=== PATIENT | male | born 1965 | race Caucasian/White ===

== ENCOUNTER 2022-07-28 16:48 | Inpatient (IN) | payer BC, SELFPAY ==
[2022-07-28] VITALS (13 sets, daily range): BP systolic 107–145; BP diastolic 54–73; PULSE 47–60; RESP 13–48; TEMP 36.4–36.7; O2SAT 99–100
--- NOTE | 2022-07-28 18:40 | W.ED.RECABL ---
HPI - Recheck/Abnormal Lab/Rx General: Chief Complaint: Recheck/Abnormal Lab/Rx Stated Complaint: abn labs Time Seen by Provider: 07/28/22 17:51 Source: patient Mode of arrival: ambulatory Limitations: no limitations History of Present Illness: 56-year-old male states that he has been having some fatigue he states he went and went to the clinic today and was called and told he had a hemoglobin of 5 and come to the ER he states he had some chronic GI issues he does have some dark stools at time denies any difficulty use heavy bleeding no vomiting blood he denies any pain anywhere denies any worsening proving factors. Review of Systems Const: Reports: fatigue; Denies: fever(s) or chills Eyes: Denies: eye discomfort ENMT: Denies: throat pain or dental pain Card: Denies: chest pain Resp: Denies: dyspnea GI: Denies: abdominal pain, nausea, vomiting or diarrhea : Denies: dysuria Musc: Denies: neck pain or back pain Skin/Breast: Denies: rash Neuro: Denies: headache(s) PFSH ED PFSH: Medical History Constipation Unexplained weight loss Surgical History History of umbilical hernia repair Family History Other CAD (coronary artery disease) Cancer Diabetes Hypertension Social History Smoking and tobacco status: never smoked Alcohol intake: never Physical Exam Const: COMMON NORMALS: patient oriented x3 HENMT: COMMON NORMALS: normocephalic and atraumatic HEAD & SCALP: normocephalic and atraumatic Eye: COMMON NORMALS: Equal, round and reactive pupils present and EOMs intact bilaterally PUPIL: Yes Equal, round and reactive pupils present Neck/C-Spine: COMMON NORMALS: full ROM and supple Chest: COMMONS NORMALS: normal inspection of the chest and normal palpation of entire chest wall Resp: COMMON NORMALS: normal respiratory effort, No retractions, No use of accessory muscles and clear to auscultation bilaterally AUSCULTATION: clear to auscultation bilaterally Cardio: COMMON NORMALS: regular rate, regular rhythm and No murmurs present (Cardio) RATE: regular rate RHYTHM: regular rhythm GI: COMMON NORMALS: Normal to inspection, nondistended, normoactive bowel sounds present, Soft to palpation, non-tender and no masses PALPATION: Yes Soft to palpation Extremity: COMMON NORMALS: normal to inspection and full ROM Neuro: COMMON NORMALS: patient oriented x3, moves all extremities and no focal motor deficits Psych: COMMON NORMALS: mental status grossly normal, Normal thought process present and cooperative THOUGHT PROCESS: Normal thought process present Skin: COMMON NORMALS: no rashes or lesions noted and no wounds NARRATIVE SKIN EXAM: pale GENERAL SKIN EXAM: no rashes or lesions noted Course Vital Signs: Vital signs: Vital Signs Pulse Rate 47 L 07/28/22 18: Respiratory Rate 13 07/28/22 18: Blood Pressure 118/58 07/28/22 18:23 Pulse Oximetry 100 07/28/22 18:23 Oxygen Delivery Me thod Room Air 07/28/22 16:53 MDM - Recheck/Abnormal Lab/Rx Medical Decision Making Patient presents here with anemia is likely from a GI bleed that is been chronic and slow his hemoglobin here is 5.3 but no signs of major acute bleeding his vitals here are stable blood pressure is 111/60 will transfuse him I spoke to surgery along with hospitalist will admit at this time. Medical Records I reviewed the patient's medical records. Lab Data I reviewed the patient's lab results. 07/28/22 18:15 07/28/22 18:15 Laboratory Results WBC 10.1 10^3/uL (4.0-10.0) H 07/28/22 18:15 RBC 4.01 10^6/uL (4.1-5.3) L 07/28/22 18:15 Hgb 5.3 g/dL (11.7-16.6) L* 07/28/22 18:15 Hct 23.3 % (42.0-52.0) L 07/28/22 18:15 MCV 58.1 fl (80-94) L 07/28/22 18:15 MCH 13.2 pg (28.0-34.0) L 07/28/22 18:15 MCHC 22.7 g/dL (30.0-36.0) L 07/28/22 18:15 RDW 22.4 % (12.1-15.1) H 07/28/22 18:15 Plt Count 428 10^3/cmm (130-400) H 07/28/22 18:15 MPV 9.3 fL (7.4-10.4) 07/28/22 18:15 Neut % (Auto) 77.3 % 07/28/22 18:15 Lymph % (Auto) 15.9 % 07/28/22 18:15 Jenkins % (Auto) 4.9 % 07/28/22 18:15 Eos % (Auto) 0.8 % 07/28/22 18:15 Baso % (Auto) 0.6 % 07/28/22 18:15 Neut # (Auto) 7.83 10^3/uL (1.8-7.7) H 07/28/22 18:15 Lymph # (Auto) 1.6 10^3/uL (0.8-4.8) 07/28/22 18:15 Jenkins # (Auto) 0.5 10^3/uL (0.2-0.9) 07/28/22 18:15 Eos # (Auto) 0.1 10^3/uL (0.0-0.8) 07/28/22 18:15 Baso # (Auto) 0.1 10^3/uL (0.0-0.1) 07/28/22 18:15 Nucleated RBC % (auto) 0.2 % 07/28/22 18:15 Nucleated RBCs # 0.0 /100WBC 07/28/22 18:15 Blood Type A Positive 07/28/22 18:15 Rho(D) Type Positive 07/28/22 18:15 Antibody Screen Negative 07/28/22 18:15 Crossmatch See Detail 07/28/22 18:15 Discharge Plan Discharge Patient Disposition: Admitted As Inpatient Clinical Impression: Anemia, GI bleed Condition: Stable Prescriptions: No Action No Known Home Medications Referrals: Brett Munoz [employer] [Primary Care Provider] - Coding Level of Care Code ED [employer] for [employer]
[2022-07-28 18:43] LABS: Basophils # 0.1 10^3/uL (0.0-0.1); Basophils % 0.6 %; Eosinophils # 0.1 10^3/uL (0.0-0.8); Eosinophils % 0.8 %; Hematocrit 23.3 % (42.0-52.0); Lymphocytes # 1.6 10^3/uL (0.8-4.8); Lymphocytes % 15.9 %; Mean Corpuscular HGB Conc 22.7 g/dL (30.0-36.0); Mean Corpuscular Hemoglobin 13.2 pg (28.0-34.0); Mean Corpuscular Volume 58.1 fl (80-94); Mean Platelet Volume 9.3 fL (7.4-10.4); Monocytes # 0.5 10^3/uL (0.2-0.9); Monocytes % 4.9 %; Neutrophils # 7.83 10^3/uL (1.8-7.7); Neutrophils % 77.3 %; Nucleated Red Blood Cells % 0.2 %; Platelet Count 428 10^3/cmm (130-400); Red Blood Count 4.01 10^6/uL (4.1-5.3); Red Cell Distribution Width 22.4 % (12.1-15.1); White Blood Count 10.1 10^3/uL (4.0-10.0)
[2022-07-28 18:58] LABS: Hemoglobin 5.3 g/dL (11.7-16.6)
[2022-07-28] MEDS: sodium chloride 0.9% 100 mL Bag 50 ML IV (19:53)
--- NOTE | 2022-07-28 19:55 | PM.HP ---
Providers/Chief Complaint Primary Care Provider: Brett Munoz Chief Complaint: abn labs History of Present Illness Jt Humphreys is a 56 year old male with no significant past medical history except most recently constipation and possible IBS in the past presented to the hospital after being called by his primary care's office that his hemoglobin was low. He recently saw his primary care and was referred to general surgery for screening colonoscopy due to his symptoms. Patient states that 10 days ago he got really sick and passed a mass . He states he did not pass gas or have a bowel movement. Denied nausea vomiting. Experience severe belly pain and felt bloated. He states he is never experienced constipation before. He states during that time he did take a stool softener or laxative off the counter however that did not help and 4 days later he was able to pass a large mass which is possibly impacted stool. He states he immediately felt better and has felt good since then. He did see his primary care doctor and they ordered routine blood work which returned today with a hemoglobin of 5 and therefore he was directed to go to the ER. He states he has had irregular stools for quite some time. He does not provide more details about the irregularity. He states that maybe they are dark maybe not. He states that they appear ribbonlike since he has a history of hemorrhoids but has never seek medical attention for them. He has been losing weight for the last 2 years which he attributes to not having much appetite. He states in 2019 he had COVID and therefore had a ageusia and therefore loss of appetite thereafter. He feels he may have lost upwards of 60 pounds in the last 2 years mainly because he is not eating much. He states he did not have anything all day today as well. He is on any medications at home. He does not really follow-up with a doctor and does not have yearly physicals. Significant other at bedside states that patient has had some trouble swallowing as well. Patient not very forthcoming regarding history of dysphagia however when asked several questions he admits that he has trouble swallowing tablets and sometimes will choke on food. He does not necessarily drink water or liquids to wash it down however significant other states that he has had several choking episodes. Patient nor denies nor confirms that food gets stuck in his chest. He states that he feels it is psychological. He is asymptomatic and feeling well at this time. Has no complaints. Agrees to having an endoscopy and colonoscopy if warranted after seeing the surgeon in the morning. Patient has been ordered 2 units of packed RBCs. Hemoglobin 5.3 in ER. He is to have 4 L of GoLytely and 4 tablets of Dulcolax as per Dr. Dutton we discussed his case with the ER doctor over the phone. Medications/Allergies Home Medications Medication Instructions Recorded Confirmed Last Taken Type No Known Home Medications 07/28/22 07/28/22 Unknown History Allergies Allergy/AdvReac Type Severity Reaction Status Date / Time No Known Allergies Allergy Verified 07/28/22 12:50 PFSH Acute PFSH: Medical History Constipation Unexplained weight loss Surgical History History of umbilical hernia repair Family History Other CAD (coronary artery disease) Cancer Diabetes Hypertension Social History Smoking and tobacco status: never smoked Alcohol intake: never Vitals/I&O/Wt Last Vital Signs Temp 97.6 F 07/28/22 19:46 Pulse 52 L 07/28/22 19:46 Resp 14 07/28/22 19:46 BP 111/60 07/28/22 19:46 Pulse Ox 100 07/28/22 19:46 O2 Del Method Room Air 07/28/22 19:44 07/28/22 07/28/22 07/28/22 06:59 14:59 22:59 Intake Total 0 / 0 Balance 0 / 0 Weight last 48 hrs Weight 65.317 kg Physical Exam Narrative: General: Alert oriented x3, patient seen sitting up in bed appearing comfortable at this time. HEENT: Normocephalic, atraumatic, EOMI, on room air Cardio: Regular rate rhythm, normal S1-S2 Respiratory: Good bilateral air entry, no wheezes no rhonchi appreciated GI: Abdomen soft, nontender, nondistended, bowel sounds + Behavior: Appropriate and cooperative Extremities: Pulses 2+, no edema, no cyanosis Data 07/28/22 18:15 07/28/22 18:15 A&P Assessment and plan (1) Anemia: (2) GI bleed: (3) Screening for colon cancer: (4) Constipation: Qualifiers: Constipation type: unspecified constipation type Qualified Code(s): K59.00 - Constipation, unspecified (5) Unexplained weight loss: (6) Dysphagia: (7) Hemorrhoids: Plan #Acute blood loss anemia #Possible iron deficiency anemia #Positive FOBT #History of IBS #? #Recent constipation, severe #History of hemorrhoids? Self-reported by patient however not formally diagnosed #Weight loss, loss of appetite #Possible dysphagia to solids ? Patient denies a family history of cancers in the family except that his brother had lung cancer possibly. He has been having weight loss that he attributes to loss of appetite in the last 2 years. Never had a screening colonoscopy before. Does not really follow-up with a doctor. Possibly has some dysphagia to solids. ? Hemoglobin 5.3 on arrival. 2 units packed RBCs ordered. We will check a posttransfusion CBC 2 hours post last unit of blood. Threshold to transfuse less than 7 ? Check CBC every 8 hours ? Continue bowel prep with 4 L GoLytely and 4 tablets of Dulcolax as directed by Dr. Dutton ? Patient to go for colonoscopy and possibly EGD in a.m. ? General surgery consulted. ? Check iron, TIBC, ferritin for suspicion of iron deficiency ? Order IV iron if warranted ? Check CT chest abdomen pelvis for possibility of ruling out underlying malignancy? ? Placed on IV fluids normal saline 75 cc/h. ? Patient is vitally stable. Continue to monitor vitals. ? Admit to medical surgical floor ? Check TSH Full code SCDs, pharmacological prophylaxis not warranted for DVT at this time Attestations Medical Necessity Statement*: Greater than 2 midnight stay for management of acute blood loss anemia. Coding Level of Care Code G0426 (50 min) TH Encounter Time (min): 60 Patient seen via Telehealth in the acute care setting (hospital or ED location) by agreement and consent of patient or patient quality assurance representative. Telehealth technology used during the visit includes video and audio. This patient encounter is appropriate and reasonable under the circumstances given the patient?s particular presentation at this time. The patient has been advised of the potential risks and limitations of this mode of treatment (including but not limited to the absence of in-person examination at this time) and has agreed to be treated by an off-site physician for this visit. If deemed clinically necessary from this telehealth visit, or if condition or consent for telehealth visit changes, an in-person visit will be arranged. For this encounter, total time for the origination of telehealth care on this date is as shown. Diagnoses Anemia D64.9 GI bleed K92.2 Screening for colon cancer Z12.11 Constipation K59.00 Constipation type: unspecified constipation type Unexplained weight loss R63.4 Dysphagia R13.10 Hemorrhoids K64.9
[2022-07-28 20:04] LABS: Alanine Aminotransferase < 5 U/L (0-41); Albumin Level 3.6 g/dL (3.5-5.2); Alkaline Phosphatase 60 U/L (40-130); Anion Gap 14.2 (5-19); Aspartate Amino Transferase 6 U/L (0-40); Blood Urea Nitrogen 13 mg/dL (6-20); Calcium 8.4 mg/dL (8.5-10.5); Carbon Dioxide 23 mmol/L (22-29); Chloride 102 mmol/L (98-107); Globulin 2.3 g/dL (1.3-4.6); Glomerular Filtration Rate 87.6 mL/min (90-130); Glucose 94 mg/dL (65-115); Osmolality Calculated 280 mOsm/kg (285-295); Potassium 4.2 mmol/L (3.5-5.1); Sodium 135 mmol/L (136-145); Total Bilirubin 0.6 mg/dL (0.15-1.2); Total Protein 5.9 g/dL (6.6-8.7)
[2022-07-28 20:46] LABS: INR 1.08 (0.8-1.2)
[2022-07-28 20:47] LABS: Iron 9 ug/dL (59-158); Percent Saturation 3.1 % (20-50); Total Iron Binding Capacity 284 mcg/dl; Unsaturated Iron Binding 275 ug/dL (112-347)
[2022-07-28 20:59] LABS: Ferritin 8 ng/mL (30-400)
[2022-07-28] MEDS: bisacodyl 5 mg Tablet 20 MG PO (23:20)
[2022-07-28] MEDS: peg /e-lyte soln 4,000 mL Btl 4000 ML PO (23:20)
[2022-07-28] MEDS: sodium chloride 0.9% 1,000 ML 75 ML IV (23:22)
[2022-07-29] VITALS (15 sets, daily range): BP systolic 100–131; BP diastolic 47–75; PULSE 42–61; RESP 12–49; TEMP 36.1–37.1; O2SAT 96–100
--- NOTE | 2022-07-29 01:47 | CT_ITS ---
WS: [id number] CT CHEST, ABDOMEN, AND PELVIS TECHNIQUE: Contrast-enhanced CT of the chest, abdomen, and pelvis with coronal and sagittal reformatt ed images. CLINICAL INFORMATION: Rule out underlying malignancy. COMPARISON: None. DLP: 730.[address] scans at [facility] use at least one of these dose optimization techniques: automated e xposure control; mA and/or kV adjustment per patient size (includes targeted exams where dose is matc hed to clinical indication); or iterative reconstruction. CT CHEST: Lungs are well aerated. No acute pulmonary infiltrates. A few calcified granulomas. No focal pneumoni a or pleural fluid. No acute pulmonary infiltrates. Normal caliber thoracic aorta. Normal ascending and descending thoracic aorta. No mediastinal or zhane r lymphadenopathy. No axillary lymphadenopathy. Mild thoracic curve. Mild thoracic kyphosis. CT ABDOMEN AND PELVIS: Mucosal enhancement involving the sigmoid colon. Suspected acute diverticuliti s with surrounding inflammatory stranding. Tiny punctate focus of air in this area suspicious for sma ll perforated diverticulum. . No drainable abscess or fluid collection. Area of eccentric enhancement soft tissue spiculation measures 2.1 x 1.7 CM suspicious for neoplasm. Fluid in the RIGHT colon and transverse colon with a few air-fluid levels. No high-grade obstruction. Mild diffuse fatty infiltration liver. Low-attenuation lesions in the RIGHT hepatic lobe with some pe ripheral enhancement nonspecific but likely cavernous hemangiomas. Largest lesion measures 1.7 CM. No rmal portal vein and splenic vein. Splenic granulomas. Normal GE junction. Normal caliber abdominal a jony. Adrenal glands are normal. Normal renal parenchymal enhancement. No hydronephrosis. No adenopathy in the abdomen or pelvis. Normal lumbar spine. CT/CT chest abdpel w/*[id number] IMPRESSION: 1. Mild inflammatory stranding and edema about the sigmoid colon with mucosal enhancement suspicious for acute diverticulitis. Tiny punctate focus of air lik paramjit small perforated diverticulum. 2. Adjacent to the area of inflammation there is a tethered region of exophyti c enhancing soft tissue measuring 2.1 x 1.7 cm suspicious for neoplasm. This ca n be further evaluated with sigmoidoscopy. 3. No drainable abscess or fluid collection. 4. Low-attenuation lesions in the RIGHT hepatic lobe with some punctate periph eral enhancement. These are nonspecific but most likely cavernous hemangiomas. This could be further evaluated with ultrasound or contrast-enhanced triphasic liver CT 5. Mild diffuse fatty infiltration liver. 6. Lungs are well aerated. Notified Dr. Gomez at 07/29/2022 11:16 AM.
[2022-07-29 04:38] LABS: Basophils # 0.1 10^3/uL (0.0-0.1); Basophils % 0.7 %; Eosinophils % 0.2 %; Hemoglobin 8.7 g/dL (11.7-16.6); Lymphocytes # 1.5 10^3/uL (0.8-4.8); Lymphocytes % 15.2 %; Mean Corpuscular HGB Conc 26.4 g/dL (30.0-36.0); Mean Corpuscular Hemoglobin 16.9 pg (28.0-34.0); Mean Corpuscular Volume 64.2 fl (80-94); Mean Platelet Volume 9.2 fL (7.4-10.4); Monocytes # 0.4 10^3/uL (0.2-0.9); Monocytes % 4.6 %; Neutrophils # 7.51 10^3/uL (1.8-7.7); Neutrophils % 78.8 %; Nucleated Red Blood Cells # 0.1 /100WBC; Nucleated Red Blood Cells % 0.5 %; Platelet Count 415 10^3/cmm (130-400); Red Blood Count 5.14 10^6/uL (4.1-5.3); Red Cell Distribution Width 29.2 % (12.1-15.1); White Blood Count 9.5 10^3/uL (4.0-10.0)
[2022-07-29 04:54] LABS: Anion Gap 14.3 (5-19); Blood Urea Nitrogen 12 mg/dL (6-20); Calcium 8.9 mg/dL (8.5-10.5); Carbon Dioxide 25 mmol/L (22-29); Chloride 102 mmol/L (98-107); Glomerular Filtration Rate 100.4 mL/min (90-130); Glucose 88 mg/dL (65-115); Magnesium 2.4 mg/dL (1.7-2.3); Osmolality Calculated 283 mOsm/kg (285-295); Potassium 4.3 mmol/L (3.5-5.1); Sodium 137 mmol/L (136-145)
[2022-07-29 04:55] LABS: Lactic Sepsis W/Reflex 1.5 mmol/L (0.5-2.2)
[2022-07-29 05:17] LABS: Thyroid Stimulating Hormone 3.42 uIU/mL (0.27-4.20)
--- NOTE | 2022-07-29 08:04 | PC.PHAR ---
pt states he takes no rx or otc medications
[2022-07-29] MEDS: pantoprazole 40 mg SDV IVP ×2 (08:24→20:22)
[2022-07-29] MEDS: iron sucrose 500 MG in sodium chloride 0.9% 250 ML 68.75 MG IV (09:42)
[2022-07-29] MEDS: iohexol 350 mg/mL 500 mL Btl (per mL) IV (09:58)
--- NOTE | 2022-07-29 10:22 | PM.PN ---
Subjective Subjective: This morning patient is stable Finished three quarters of his GoLytely Hemodynamically stable Hemoglobin around 8 We did talk about thalassemia trait however at this point he needs IV iron bag because of severe iron deficiency anemia Going for EGD and colonoscopy around noon Vitals/I&O/Wt Last Vital Signs Temp 98 F 07/29/22 07:58 Pulse 54 L 07/29/22 07:58 Resp 15 07/29/22 07:58 BP 123/73 07/29/22 07:58 Pulse Ox 98 07/29/22 07:58 O2 Del Method Room Air 07/29/22 07:58 07/28/22 07/29/22 07/29/22 22:59 06:59 14:59 Intake Total 470 / 470 700 / 1170 317.5 / 317.5 Balance 470 / 470 700 / 1170 317.5 / 317.5 Weight last 48 hrs Weight 65.317 kg Physical Exam Narrative: Patient is awake and alert Euvolemic Abdomen soft Normal complexion S1, S2 Normal hemodynamics at the bedside GCS 15 No aortic murmur S1, S2 Doing well on room air Data 07/29/22 04:21 07/29/22 04:21 Micro: Microbiology 07/28/22 19:09 Occult Blood (FIT) - Final Stool Routine Collection A&P Assessment and plan (1) Hemorrhoids: (2) Dysphagia: (3) Anemia: (4) GI bleed: (5) Constipation: Qualifiers: Constipation type: unspecified constipation type Qualified Code(s): K59.00 - Constipation, unspecified (6) Unexplained weight loss: Plan Acute microcytic hypochromic blood loss anemia GI blood loss Positive FOBT Never had screening colonoscopy Plan for EGD and colonoscopy today Severe iron deficiency anemia MCV below 75, thalassemia trait? We will give him 1 bag of iron sucrose today Dysphagia He might go for EGD as well Patient is stating that sporadically he gets dysphagia to solids and liquids however he never regurgitates foods never gets vomiting symptoms He is endorsing weight loss If EGD is unremarkable he will need modified barium swallow study Full code N.p.o. Start diet after the scope DVT prophylaxis on hold because of anemia Attestations Medical Necessity Statement*: Anticipating discharge tomorrow morning Diagnoses Hemorrhoids K64.9 Dysphagia R13.10 Anemia D64.9 GI bleed K92.2 Constipation K59.00 Constipation type: unspecified constipation type Unexplained weight loss R63.4
[2022-07-29 11:22] LABS: Folate Level 2.6 ng/mL (4.5-32.2)
[2022-07-29 11:23] LABS: Vitamin B12 329 pg/mL (232-1245)
--- NOTE | 2022-07-29 12:13 | P.CONIM_ITS ---
Providers/Reason For Consult Consulting Physician/Specialty*: Dr. Casey Dutton DO/General surgery Reason for Consult*: GI bleeding Attending Physician: Pedro Gomez MD Primary Care Provider: Brett Munoz History of Present Illness History of Present Illness Jt Humphreys is a 56 year old male who presented to the hospital with a hemoglobin of 5.3. He denies any abdominal pain but does report that he had some bright red blood per rectum recently. He believes he has hemorrhoids. He denies any nausea or vomiting. He reports that about 10 days ago he was con stipated but eventually passed a hard stool ball and has been fine since. He has never had a colonoscopy. Denies any family history of colon cancer. Review of Systems General: Reports: 10 or more systems reviewed and unremarkable except in HPI and below Medications/Allergies Home Medications Medication Instructions Recorded Confirmed Last Taken Type No Known Home Medications 07/28/22 07/29/22 Unknown History Allergies Allergy/AdvReac Type Severity Reaction Status Date / Time No Known Allergies Allergy Verified 07/29/22 08:04 Current Medications Generic Name Dose Route Start Last Admin Trade Name Freq PRN Reason Stop Dose Admin Iron Sucrose 500 mg/ Sodium 275 mls @ 68.75 mls/hr 07/29/22 08:18 07/29/22 09:42 Chloride IV 07/29/22 12:17 68.75 mls/hr ONCE ONE Administration PFSH Acute PFSH: Medical History Constipation Unexplained weight loss Surgical History History of umbilical hernia repair Family History Other CAD (coronary artery disease) Cancer Diabetes Hypertension Social History Smoking and tobacco status: never smoked Alcohol intake: never Vitals/I&O/Wt Last Vital Signs Temp 98.1 F 07/29/22 11:30 Pulse 42 L 07/29/22 11:30 Resp 18 07/29/22 11:30 BP 124/64 07/29/22 11:30 Pulse Ox 100 07/29/22 11:30 O2 Del Method Room Air 07/29/22 07:58 07/28/22 07/29/22 07/29/22 22:59 06:59 14:59 Intake Total 470 / 470 700 / 1170 317.5 / 317.5 Balance 470 / 470 700 / 1170 317.5 / 317.5 Weight last 48 hrs Weight 144 lb Physical Exam Narrative: General : Patient is well developed , no acute distress, oriented x3 Head : Normal cephalic, a-traumatic. Ears : Pinnae and external canal are normal. Hearing is normal. Eyes : PERRLA, Sclera and injection are normal. No conjunctival discharge. Nose : Mucous membranes are without erythema. Throat : buccal mucosa is normal, gums are without significant recession or hypertrophy. Lungs : Equal chest rise bilaterally, no use of accessory muscles, trachea is midline. Cor : Rate and rhythm are normal. Abdomen : Soft, ND, NT, no g/r/m Extremities : No edema, no cyanosis or clubbing, dorsalis pedis pulses are present bilaterally, non-tender to palpation of calves. Upper extremities are normal bilaterally. Back : non-tender to palpation, no CVA tenderness. Neuro : CN II - XII intact, Upper and lower extremities have equal and full strength Data 07/29/22 04:21 07/29/22 04:21 Micro: Microbiology 07/28/22 19:09 Occult Blood (FIT) - Final Stool Routine Collection A&P Assessment and plan (1) GI bleed: Plan EGD Diagnostic colonoscopy The risks and benefits of the procedure, including bleeding, infection, intestinal perforation requiring surgery, missed lesion were explained to the patient. The patient is understanding of the risks and wishes to proceed. Coding Level of Care Code Acute Code for Chg Fwd Diagnoses GI bleed K92.2
--- NOTE | 2022-07-29 12:28 | ANES.PREANE2 ---
Pre-Anesthetic Assessment Height/Weight: Height 1.68 m Weight 65.317 kg Temp Pulse Resp BP Pulse Ox O2 Del Method 98.1 F 42 L 18 124/64 100 Room Air 07/29/22 11:30 07/29/22 11:30 07/29/22 11:30 07/29/22 11:30 07/29/22 11:30 07/29/22 07:58 Preop Diagnosis: Anemia Operation Date: 07/29/22 11:45 Proposed Procedures p EGD(Not Applicable) - Casey Dutton DO s Colonoscopy(Not Applicable) - Casey Dutton DO Was Beta Soy taken within 24 hours: N/A Was Clonidine taken within 24 hours: N/A Last intake: Intake Last Liquid Date 07/29/22 Last Liquid Time 1145 Last Solid Date 07/28/22 Last Solid Time 12:00 Social No alcohol and No tobacco Exam alert, oriented x 3, clear to auscultation bilaterally and regular rate & rhythm Airway Submandibular: within normal limits Cervical ROM: within normal limits Mallampati: Class II Dentition: full Pulmonary None reported CV/HEM None reported None reported Hepatic None reported GI Rectal Bleeding Metabolic None reported Musc/skel None reported Neuropsych None reported Anesthetic Plan ASA status: 2 Anesthesia: MAC Other: MAC patient reports no N/V rectal bleeding only. Patient reports drinking prep until 1145 Per NPO guidelines procedure will start at 1345 (2 HRS) Medications/Allergies Home Medications Medication Instructions Recorded Confirmed Last Taken Type No Known Home Medications 07/28/22 07/29/22 Unknown History Allergies Allergy/AdvReac Type Severity Reaction Status Date / Time No Known Allergies Allergy Verified 07/29/22 08:04 [facility] Anesthesia Medical History Constipation Unexplained weight loss Surgical History History of umbilical hernia repair Family History Other CAD (coronary artery disease) Cancer Diabetes Hypertension Social History Smoking and tobacco status: never smoked Alcohol intake: never Data Anesthesia 07/29/22 04:21 07/29/22 04:21 Short CBC 07/28/22 07/29/22 Range/Units 18:15 04:21 WBC 10.1 H 9.5 (4.0-10.0) 10^3/uL Hgb 5.3 L* 8.7 L D (11.7-16.6) g/dL Hct 23.3 L 33.0 L D (42.0-52.0) % MCV 58.1 L 64.2 L D (80-94) fl Plt Count 428 H 415 H (130-400) 10^3/cmm Neut % (Auto) 77.3 78.8 % Neut # (Auto) 7.83 H 7.51 (1.8-7.7) 10^3/uL BMP 07/28/22 07/29/22 18:15 04:21 Sodium 135 L 137 Potassium 4.2 4.3 Chloride 102 102 Carbon Dioxide 23 25 BUN 13 12 Creatinine 0.9 0.8 Glucose 94 88 Calcium 8.4 L 8.9 Liver Function 07/28/22 Range/Units 18:15 Total Bilirubin 0.6 (0.15-1.2) mg/dL AST 6 (0-40) U/L ALT < 5 (0-41) U/L Alkaline Phosphatase 60 (40-130) U/L Albumin 3.6 (3.5-5.2) g/dL Blood Bank 07/28/22 18:15 Blood Type A Positive Rho(D) Type Positive Antibody Screen Negative Coags 07/28/22 18:15 PT 14.30 INR 1.08 Microbiology 07/28/22 19:09 Occult Blood (FIT) - Final Stool Routine Collection Cardiac Studies: No Data to Display
[2022-07-29] MEDS: sodium chloride 0.9% 1,000 ML 30 ML IV (12:52)
--- NOTE | 2022-07-29 13:52 | PM.PO ---
Providers/Reason For Consult Consulting Physician/Specialty*: Adam Robison MD/General Surgery Reason for Consult*: Chronic anemia Attending Physician: Pedro Gomez MD Primary Care Provider: Brett Munoz History of Present Illness History of Present Illness Jt Humphreys is a 56 year old male Review of Systems General: Reports: 10 or more systems reviewed and unremarkable except in HPI and below Medications/Allergies Home Medications Medication Instructions Recorded Confirmed Last Taken Type No Known Home Medications 07/28/22 07/29/22 Unknown History Allergies Allergy/AdvReac Type Severity Reaction Status Date / Time No Known Allergies Allergy Verified 07/29/22 08:04 Current Medications Generic Name Dose Route Start Last Admin Trade Name Freq PRN Reason Stop Dose Admin Sodium Chloride 1,000 mls @ 30 mls/hr 07/29/22 11:30 07/29/22 12:52 Sodium Chloride 0.9% IV 07/30/22 11:29 30 mls/hr .Q24H LETICIA Administration PFSH Acute PFSH: Medical History Constipation Unexplained weight loss Surgical History History of umbilical hernia repair Family History Other CAD (coronary artery disease) Cancer Diabetes Hypertension Social History Smoking and tobacco status: never smoked Alcohol intake: never Vitals/I&O/Wt Last Vital Signs Temp 98.1 F 07/29/22 11:30 Pulse 42 L 07/29/22 11:30 Resp 18 07/29/22 11:30 BP 124/64 07/29/22 11:30 Pulse Ox 100 07/29/22 11:30 O2 Del Method Room Air 07/29/22 07:58 07/28/22 07/29/22 07/29/22 22:59 06:59 14:59 Intake Total 470 / 470 700 / 1170 317.5 / 317.5 Balance 470 / 470 700 / 1170 317.5 / 317.5 Weight last 48 hrs Weight 144 lb Physical Exam Narrative: WDWN male with no acute changes from previous examinations. Data 07/29/22 04:21 07/29/22 04:21 Micro: Microbiology 07/28/22 19:09 Occult Blood (FIT) - Final Stool Routine Collection Perioperative Risk Evaluation Type of surgery: Surgical procedures: Esophagogastroduodenoscopy and colonoscopy Procedure risk: low risk procedure Status of surgery: Priority: urgent (neccessary within 6-24 hours) Assessment: Risk of cardiovascular perioperative events: Low At this time, there is a low risk for cardiovascular perioperative events associated with this urgent low risk procedure (Esophagogastroduodenoscopy and colonoscopy). Risk of noncardiovascular perioperative events: Low At this time, there is a low risk for noncardiovascular perioperative events associated with this urgent low risk procedure (Esophagogastroduodenoscopy and colonoscopy). Recommendations: Patient medically optimized for surgery: Yes Maria L-op med management: Currently, there are no high priority active medications. Therefore, no specific actions are indicated. Cardiac Studies: No Data to Display A&P Assessment and plan (1) GI bleed: Plan: esophagogastroduodenoscopy and colonoscopy on 07/29/2022 Coding Level of Care Code Acute Code for Chg Fwd Diagnoses GI bleed K92.2
--- NOTE | 2022-07-29 14:42 | ANE.PACU2 ---
Inpatient post-anesthesia follow up: Airway intact: Yes Vital signs: Temperature 97 F Pulse Rate 51 Respiratory Rate 12 Blood Pressure 100/57 Pulse Oximetry 99 Oxygen Delivery Me thod Room Air Oxygen Flow Rate Fraction of Inspir ed Oxygen Hydration adequate: Yes Nausea and vomiting: No Pain level: 2 Mental status: Baseline
--- NOTE | 2022-07-29 14:54 | XR_ITS ---
WS: [id number] Abdomen series, Flat and upright portable, 07/29/2022 Clinical Data: Post colonoscopy Comparison: None. Findings: No free air is seen beneath the diaphragms. No abnormal intra-abdominal masses or calcifica tions are seen. There is a large amount of air in the small bowel and colon. No obstruction is seen. The bladder is partly full. There are monitor leads on the abdominal wall. XR/XR abdomen min 2V [id number] Impression: Generalized ileus.
[2022-07-29] MEDS: metroNIDAZOLE 500 MG Tablet PO ×2 (17:13→20:22)
[2022-07-29 20:03] LABS: Carcinoembryonic Antigen 2.3 ng/mL (0.0-4.7)
[2022-07-29] MEDS: ciprofloxacin 500 mg Tablet PO (20:22)
[2022-07-30] VITALS (9 sets, daily range): BP systolic 105–128; BP diastolic 41–72; PULSE 42–54; RESP 15–18; TEMP 36.1–36.6; O2SAT 97–100
[2022-07-30 06:08] LABS: Anion Gap 13.1 (5-19); Blood Urea Nitrogen 8 mg/dL (6-20); Calcium 8.1 mg/dL (8.5-10.5); Carbon Dioxide 25 mmol/L (22-29); Chloride 108 mmol/L (98-107); Glomerular Filtration Rate 77.6 mL/min (90-130); Glucose 82 mg/dL (65-115); Magnesium 2.4 mg/dL (1.7-2.3); Osmolality Calculated 291 mOsm/kg (285-295); Potassium 4.1 mmol/L (3.5-5.1); Sodium 142 mmol/L (136-145)
[2022-07-30 06:38] LABS: Basophils # 0.1 10^3/uL (0.0-0.1); Eosinophils # 0.1 10^3/uL (0.0-0.8); Eosinophils % 1.5 %; Hematocrit 26.8 % (42.0-52.0); Lymphocytes # 1.4 10^3/uL (0.8-4.8); Lymphocytes % 21.1 %; Mean Corpuscular HGB Conc 26.1 g/dL (30.0-36.0); Mean Corpuscular Hemoglobin 16.7 pg (28.0-34.0); Mean Corpuscular Volume 64.1 fl (80-94); Mean Platelet Volume 8.9 fL (7.4-10.4); Monocytes # 0.5 10^3/uL (0.2-0.9); Neutrophils # 4.57 10^3/uL (1.8-7.7); Nucleated Red Blood Cells # 0.1 /100WBC; Nucleated Red Blood Cells % 0.7 %; Platelet Count 301 10^3/cmm (130-400); Red Blood Count 4.18 10^6/uL (4.1-5.3); Red Cell Distribution Width 29.7 % (12.1-15.1); White Blood Count 6.7 10^3/uL (4.0-10.0)
[2022-07-30] MEDS: ciprofloxacin 500 mg Tablet PO (08:09)
[2022-07-30] MEDS: metroNIDAZOLE 500 MG Tablet PO ×2 (08:09→14:06)
--- NOTE | 2022-07-30 08:58 | PC.NURSE ---
Patient hemoglobin level is 7.0. This nurse messaged MD. No new orders received at this time.
[2022-07-30] MEDS: pantoprazole 40 mg SDV IVP (09:02)
--- NOTE | 2022-07-30 09:30 | PC.NURSE ---
Patient requested that his telemetry be taken off. 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 Patient still requested to take it off.
--- NOTE | 2022-07-30 12:36 | P.DS_ITS ---
Discharge Providers Date of Admission: 07/28/22 19:29 Date of Discharge: July 30, 2022 Attending Provider at Admission: Ronit Holm MD Attending Provider at Discharge: Harpreet Alvares MD Primary Care Provider: Brett Munoz Diagnoses at Discharge Discharge Diagnosis (1) GI bleed: Status: Acute Reason for Visit Reason for Visit: abn labs Hospital Course Hospital Course Jt Humphreys is a 56 year old male with no significant past medical history except most recently constipation and possible IBS in the past presented to the hospital after being called by his primary care's office that his hemoglobin was low.? He recently saw his primary care and was referred to general surgery for screening colonoscopy due to his symptoms.? Patient states that 10 days ago he got really sick and passed a mass .? He states he did not pass gas or have a bowel movement.? Denied nausea vomiting.? Experience severe belly pain and felt bloated.? He states he is never experienced constipation before.? He states during that time he did take a stool softener or laxative off the counter however that did not help and 4 days later he was able to pass a large mass which is possibly impacted stool.? He states he immediately felt better and has felt good since then.? He did see his primary care doctor and they ordered routine blood work which returned today with a hemoglobin of 5 and therefore he was directed to go to the ER.? He states he has had irregular stools for quite some time.? He does not provide more details about the irregularity.? He states that maybe they are dark maybe not.? He states that they appear ribbonlike since he has a history of hemorrhoids but has never seek medical attention for them.? He has been losing weight for the last 2 years which he attributes to not having much appetite.? He states in 2019 he had COVID and therefore had a ageusia and therefore loss of appetite thereafter.? He feels he may have lost upwards of 60 pounds in the last 2 years mainly because he is not eating much.? He states he did not have anything all day today as well.? He is on any medications at home.? He does not really follow-up with a doctor and does not have yearly physicals.? Significant other at bedside states that patient has had some trouble swallowing as well.? Patient not very forthcoming regarding history of dysphagia however when asked several questions he admits that he has trouble swallowing tablets and sometimes will choke on food.? He does not necessarily drink water or liquids to wash it down however significant other states that he has had several choking episodes.? Patient nor denies nor confirms that food gets stuck in his chest.? He states that he feels it is psychological. He is asymptomatic and feeling well at this time.? Has no complaints.? Agrees to having an endoscopy and colonoscopy if warranted after seeing the surgeon in the morning.? Patient has been ordered 2 units of packed RBCs.? Hemoglobin 5.3 in ER.? He is to have 4 L of GoLytely and 4 tablets of Dulcolax as per Dr. Dutton we discussed his case with the ER doctor over the phone. Patient was admitted to [facility] for acute microcytic hypochromic anemia, with severe iron deficiency anemia, secondary to rectal mass. Patient had sigmoidoscopy that showed severe, malignant appearing intrinsic 1 cm diameter stenosis, which was not transverse, small amount of blood was observed, partially obstructing large size malignant appearing circumferential mass was seen, mass was actively bleeding. Patient required 3 units PRBC during his hospitalization, received 2 treatments of IV Venofer, clinically monitored, on a clear liquid diet. On discharge I wanted to have him follow-up with Dr. Abad on Monday for referral to colorectal surgery. Recheck hemoglobin on Monday either through Dr. Abad through primary care. I am also can have him follow- up with Dr. Abad to consider further IV Venofer infusions and or blood transfusions depending what his hemoglobin trends to. He has not had any recurrent bloody or black stools in the hospital, but he for to have any worsening bloody or black stools go to the emergency room. Patient was advised to stick with a low fiber, low residue, clear liquid diet given that the mass was partially obstructing. Patient was advised if he were to have sudden onset of abdominal pain, lack of stooling, this is a surgical emergency to go to the emergency room. On admission, patient did show mild inflammatory stranding edema about the sigmoid colon, suspicious for acute diverticulitis, tiny punctuate focus of air likely small perforated diverticulum, patient was advised of diet as above, discharged on 7 remaining days of antibiotics, follow-up with primary care provider in 1 week. Physical Exam Const: COMMON NORMALS: no acute distress and patient oriented x3 Resp: COMMON NORMALS: normal respiratory effort, No retractions, No use of accessory muscles and clear to auscultation bilaterally AUSCULTATION: clear to auscultation bilaterally Cardio: COMMON NORMALS: regular rate, regular rhythm, S1 normal heart sound present and S2 normal heart sound present RATE: regular rate RHYTHM: regu lar rhythm HEART SOUNDS: S1 normal heart sound present and S2 normal heart sound present GI: COMMON NORMALS: Normal to inspection, nondistended, normoactive bowel sounds present and non-tender Extremity: COMMON NORMALS: no pedal edema Neuro: COMMON NORMALS: patient oriented x3 Psych: COMMON NORMALS: mental status grossly normal Discharge Data Studies Completed and Pending Completed Studies During Hospitalization Category Date Time Status CT chest abdomen pelvis [CT chest abdpel w/*[id number] Cat Scan 07/29/22 01:47 Completed ] Routine XR abdomen min 2V [id number] Urgent Exams 07/29/22 14:54 Completed Pending at discharge Category Date Time Status H. Pylori / LUCAS Test Routine Lab 07/29/22 14:16 Ordered Pathology: Surgical [PTH] Routine Pth 07/29/22 14:35 Received Radiology Impressions Chest/Abdomen/Pelvis CT 07/29/22 01:47 IMPRESSION: 1. Mild inflammatory stranding and edema about the sigmoid colon with mucosal e nhancement suspicious for acute diverticulitis. Tiny punctate focus of air likely small perforated diverticulum. 2. Adjacent to the area of inflammation there is a tethered region of exophytic enhancing soft tissue measuring 2.1 x 1.7 cm suspicious for neoplasm. This can be further evaluated with sigmoidoscopy. 3. No drainable abscess or fluid collection. 4. Low-attenuation lesions in the RIGHT hepatic lobe with some punctate peripheral enhancement. These are nonspecific but most likely cavernous hemangiomas. This could be further evaluated with ultrasound or contrast- enhanced triphasic liver CT 5. Mild diffuse fatty infiltration liver. 6. Lungs are well aerated. Notified Dr. Gomez at 07/29/2022 11:16 AM. Abdomen X-Ray 07/29/22 14:54 Impression: Generalized ileus. Laboratory Results WBC 6.7 10^3/uL (4.0-10.0) 07/30/22 05:25 WBC Cancelled 07/30/22 05:25 Corrected WBC Cancelled 07/30/22 05:25 RBC 4.18 10^6/uL (4.1-5.3) 07/30/22 05:25 RBC Cancelled 07/30/22 05:25 Hgb 7.0 g/dL (11.7-16.6) L 07/30/22 05:25 Hgb Cancelled 07/30/22 05:25 Hct 26.8 % (42.0-52.0) L 07/30/22 05:25 Hct Cancelled 07/30/22 05:25 MCV 64.1 fl (80-94) L 07/30/22 05:25 MCV Cancelled 07/30/22 05:25 MCH 16.7 pg (28.0-34.0) L 07/30/22 05:25 MCH Cancelled 07/30/22 05:25 MCHC 26.1 g/dL (30.0-36.0) L 07/30/22 05:25 MCHC Cancelled 07/30/22 05:25 RDW 29.7 % (12.1-15.1) H 07/30/22 05:25 RDW Cancelled 07/30/22 05:25 Plt Count 301 10^3/cmm (130-400) 07/30/22 05:25 Plt Count Cancelled 07/30/22 05:25 MPV 8.9 fL (7.4-10.4) 07/30/22 05:25 MPV Cancelled 07/30/22 05:25 Gran % Cancelled 07/30/22 05:25 Neut % (Auto) 68.0 % 07/30/22 05:25 Neut % (Auto) Cancelled 07/30/22 05:25 Lymph % (Auto) 21.1 % 07/30/22 05:25 Lymph % (Auto) Cancelled 07/30/22 05:25 Marin % (Auto) 8.0 % 07/30/22 05:25 Marin % (Auto) Cancelled 07/30/22 05:25 Eos % (Auto) 1.5 % 07/30/22 05:25 Eos % (Auto) Cancelled 07/30/22 05:25 Baso % (Auto) 1.0 % 07/30/22 05:25 Baso % (Auto) Cancelled 07/30/22 05:25 Neut # (Auto) 4.57 10^3/uL (1.8-7.7) 07/30/22 05:25 Neut # (Auto) Cancelled 07/30/22 05:25 Lymph # (Auto) 1.4 10^3/uL (0.8-4.8) 07/30/22 05:25 Lymph # (Auto) Cancelled 07/30/22 05:25 Marin # (Auto) 0.5 10^3/uL (0.2-0.9) 07/30/22 05:25 Marin # (Auto) Cancelled 07/30/22 05:25 Eos # (Auto) 0.1 10^3/uL (0.0-0.8) 07/30/22 05:25 Eos # (Auto) Cancelled 07/30/22 05:25 Baso # (Auto) 0.1 10^3/uL (0.0-0.1) 07/30/22 05:25 Baso # (Auto) Cancelled 07/30/22 05:25 Absolute Gran (auto) Cancelled 07/30/22 05:25 Nucleated RBC % (auto) 0.7 % 07/30/22 05:25 Nucleated RBC % (auto) Cancelled 07/30/22 05:25 Total Counted Cancelled 07/30/22 05:25 Atypical Lymphs % Cancelled 07/30/22 05:25 Absolute Neutrophils Cancelled 07/30/22 05:25 Segmented Neutrophils Cancelled 07/30/22 05:25 Abs Segm Neuts (Man) Cancelled 07/30/22 05:25 Band Neutrophils Cancelled 07/30/22 05:25 Abs Band Neuts (Man) Cancelled 07/30/22 05:25 Absolute Lymphocytes Cancelled 07/30/22 05:25 Lymphocytes (Manual) Cancelled 07/30/22 05:25 Monocytes (Manual) Cancelled 07/30/22 05:25 Absolute Monocytes Cancelled 07/30/22 05:25 Eosinophils (Manual) Cancelled 07/30/22 05:25 Absolute Eosinophils Cancelled 07/30/22 05:25 Basophils (Manual) Cancelled 07/30/22 05:25 Absolute Basophils Cancelled 07/30/22 05:25 Metamyelocytes Cancelled 07/30/22 05:25 Myelocytes Cancelled 07/30/22 05:25 Promyelocytes Cancelled 07/30/22 05:25 Nucleated RBCs Cancelled 07/30/22 05:25 Nucleated RBCs # 0.1 /100WBC 07/30/22 05:25 Nucleated RBCs # Cancelled 07/30/22 05:25 Pathologist Review Cancelled 07/30/22 05:25 Hypersegmented Polys Cancelled 07/30/22 05:25 Blast Cells Cancelled 07/30/22 05:25 Smudge Cells Cancelled 07/30/22 05:25 Toxic Granulation Cancelled 07/30/22 05:25 Toxic Vacuolation Cancelled 07/30/22 05:25 Dohle Bodies Cancelled 07/30/22 05:25 Debbie Rods Cancelled 07/30/22 05:25 Platelet Estimate Cancelled 07/30/22 05:25 Giant Platelets Cancelled 07/30/22 05:25 Polychromasia Cancelled 07/30/22 05:25 Hypochromasia Cancelled 07/30/22 05:25 Poikilocytosis Cancelled 07/30/22 05:25 Basophilic Stippling Cancelled 07/30/22 05:25 Anisocytosis Cancelled 07/30/22 05:25 Microcytosis Cancelled 07/30/22 05:25 Macrocytosis Cancelled 07/30/22 05:25 Spherocytes Cancelled 07/30/22 05:25 Sickle Cells Cancelled 07/30/22 05:25 Target Cells Cancelled 07/30/22 05:25 Tear Drop Cells Cancelled 07/30/22 05:25 Ovalocytes Cancelled 07/30/22 05:25 Stomatocytes Cancelled 07/30/22 05:25 Helmet Cells Cancelled 07/30/22 05:25 [place] Bodies Cancelled 07/30/22 05:25 [place] Cells Cancelled 07/30/22 05:25 Crenated Cell Cancelled 07/30/22 05:25 Acanthocytes (Spur) Cancelled 07/30/22 05:25 Rouleaux Cancelled 07/30/22 05:25 Schistocytes Cancelled 07/30/22 05:25 RBC Morph Comment Cancelled 07/30/22 05:25 PT 14.30 SECONDS (12.1-14.9) 07/28/22 18:15 INR 1.08 (0.8-1.2) 07/28/22 18:15 Sodium 142 mmol/L (136-145) 05/13/23 05:25 Potassium 4.1 mmol/L (3.5-5.1) 07/30/22 05:25 Chloride 108 mmol/L (98-107) H 07/30/22 05:25 Carbon Dioxide 25 mmol/L (22-29) 07/30/22 05:25 Anion Gap 13.1 (5-19) 07/30/22 05:25 BUN 8 mg/dL (6-20) 07/30/22 05:25 Creatinine 1.0 mg/dL (0.7-1.2) 07/30/22 05:25 GFR Calculation 77.6 mL/min (90-130) L 07/30/22 05:25 Glucose 82 mg/dL (65-115) 07/30/22 05:25 Calculated Osmolality 291 mOsm/kg (285-295) 07/30/22 05:25 Lactic Acid 1.5 mmol/L (0.5-2.2) 07/29/22 04:21 Calcium 8.1 mg/dL (8.5-10.5) L 07/30/22 05:25 Magnesium 2.4 mg/dL (1.7-2.3) H 07/30/22 05:25 Iron 9 ug/dL (59-158) L 07/28/22 18:15 Iron Cancelled 07/28/22 18:15 TIBC 284 mcg/dl 07/28/22 18:15 TIBC Cancelled 07/28/22 18:15 % Saturation 3.1 % (20-50) L 07/28/22 18:15 % Saturation Cancelled 07/28/22 18:15 Unsat Iron Binding 275 ug/dL (112-347) 07/28/22 18:15 Unsat Iron Binding Cancelled 07/28/22 18:15 Ferritin 8 ng/mL (30-400) L 07/28/22 18:15 Total Bilirubin 0.6 mg/dL (0.15-1.2) 07/28/22 18:15 AST 6 U/L (0-40) 07/28/22 18:15 ALT < 5 U/L (0-41) 07/28/22 18:15 Alkaline Phosphatase 60 U/L (40-130) 07/28/22 18:15 Total Protein 5.9 g/dL (6.6-8.7) L 07/28/22 18:15 Albumin 3.6 g/dL (3.5-5.2) 07/28/22 18:15 Globulin 2.3 g/dL (1.3-4.6) 07/28/22 18:15 Carcinoembryonic Ag 2.3 ng/mL (0.0-4.7) 07/29/22 04:21 Vitamin B12 329 pg/mL (232-1245) 07/29/22 04:21 Folate 2.6 ng/mL (4.5-32.2) L 07/28/22 18:15 TSH 3.42 uIU/mL (0.27-4.20) 07/29/22 04:21 Blood Type A Positive 07/28/22 18:15 Rho(D) Type Positive 07/28/22 18:15 Antibody Screen Negative 07/28/22 18:15 Crossmatch See Detail 07/28/22 18:15 Vitals Last Vital Signs Temp 97.7 F 07/30/22 11:55 Pulse 47 L 07/30/22 11:55 Resp 17 07/30/22 11:55 BP 106/63 07/30/22 11:55 Pulse Ox 100 07/30/22 11:55 O2 Del Method Room Air 07/30/22 11:40 Discharge Plan Discharge Patient Disposition: Home Condition: Stable Prescriptions: New metronidazole 500 mg Tablet 500 mg PO TID 7 Days Qty: 21 0RF ciprofloxacin HCl 500 mg Tablet 500 mg PO BID@0900,2100 7 Days Qty: 14 0RF No Action No Known Home Medications Discharge Orders: Discharge Order (Routine); Ordered 07/30/22 Ordered By: Harpreet Alvares Referrals: Brett Munoz NP [Primary Care Provider] - Discharge Diet: Clear Liquid Discharge Activity: Resume usual activity Patient Instructions: GI Discharge Instructions, Opioid Safety Activity Restrictions/Additional Instructions: - Please see Dr. Abad on Monday -Have your primary care provider recheck your hemoglobin on Monday -If you develop any bloody or black stools go to the emergency room -Please take antibiotics as prescribed -Please avoid high fiber diet, stick to a low residue, clear liquid diet -If you have a sudden lack of stooling, sudden onset abdominal pain, abdominal ascension this might be a surgical emergency and you must come to the emergency room or call 911 Discharge Attestations Time Spent in Discharge Care*: greater than 30 min Quality Metrics Clinical Quality Measures [ No reported AMI, CVA or VTE this stay] Coding Level of Care Code 10581 Total time (in minutes) for Discharge: 45 Diagnoses GI bleed K92.2
[2022-07-30] MEDS: sodium chloride 0.9% 100 mL Bag 50 ML IV (14:36)
[2022-07-30] MEDS: iron sucrose 200 MG in sodium chloride 0.9% (100 ml) 100 ML 220 MG IV (15:07)
[2022-08-01 07:08] LABS: H. Pylori / CLO Test Positive
[2022-08-03 09:12] LABS: Mismatch Repari Proteins-IHC See Report
== END 2022-07-30 15:52 | disposition home or self-care (01) | DRG 376 ==
LOC: ER 19:43 → MEDSURG 20:51
PROVIDERS: Emergency Medicine; Internal Medicine; Surgery; Admitting Provider Internal Medicine; Emergency Provider Emergency Medicine; PCP Clinical Nurse Specialist Adult Health; Visit Provider Family Medicine
PROC: 0DJ08ZZ Inspection of Upper Intestinal Tract, Via Natural or Artificial Opening Endoscopic (ICD-10-PCS; CPT 43235; principal; 2022-07-29 11:45)
PROC: 0DJD8ZZ Inspection of Lower Intestinal Tract, Via Natural or Artificial Opening Endoscopic (ICD-10-PCS; CPT 45330; 2022-07-29 11:45)
DX: C20 Malignant neoplasm of rectum (principal); D50.0 Iron deficiency anemia secondary to blood loss (chronic); K59.00 Constipation, unspecified; Z86.16 Personal history of COVID-19; R13.10 Dysphagia, unspecified; K64.9 Unspecified hemorrhoids; D56.3 Thalassemia minor
CPT/HCPCS: 36415; 36430; 43239; 45331; 71260; 74019; 74177; 80048; 80053; 82274; 82378; 82607; 82728; 82746; 83540; 83550; 83605; 83735; 84443; 85025; 85610; 85651; 86140; 86850; 86900; 86920; 87077; 88305; 88341; 88342; 96360; 96361; 99285; C9113; J1756; J2704; J7030; J7050; P9016; Q9967

== ENCOUNTER → 2022-08-01 10:44 | Outpatient (BNVA) | payer BC, SELFPAY | PROVIDERS: PCP Clinical Nurse Specialist Adult Health; Visit Provider Clinical Nurse Specialist Adult Health | DX: D64.9 Anemia, unspecified (principal); K63.89 Other specified diseases of intestine | CPT/HCPCS: 85025 ==

== ENCOUNTER 2022-08-02 08:32 | Oncology outpatient (recurring) (ONCR) | payer BC, SELFPAY ==
--- NOTE | 2022-08-02 09:13 | N.ONRAD NP_ITS ---
Radiation Oncology Consultation Patient Name: Jt Humphreys Date of : 1965 Date of Service: 08/02/2022 Attending Physician: Jt Esteves M.D. Jt Humphreys was seen in consultation this afternoon at the request of Marv Abad M.D. for consideration of pelvic radiotherapy in the management of a recently diagnosed rectal cancer. He was evaluated at the [facility] Emergency Department for anemia. The patient's initial hemoglobin was 5.3 g/dL. He was was transfused 2 units of packed red blood cells. A thoracoabdominopelvic CT scan revealed a 2.1 cm x 1.7 cm centric soft tissue mass within the rectum and low-attenuation lesions in the right hepatic lobe with peripheral enhancement likely representing a cavernous hemangioma. A sigmoidoscopy colonoscopy was performed by Adam Moyer M.D. on July 29, 2022. A malignant-appearing circumferential mass was identified in the rectum. A biopsy diagnosed a moderately-differentiated, invasive adenocarcinoma. DNA mismatch repair proteins studies have been requested. A CEA level was 2.3 mg/mL. He was referred for discussion regarding neoadjuvant pelvic radiotherapy. I discussed with Mr. Humphreys [employer] [place] [employer] for rectal cancer. I also reviewed the National Comprehensive Cancer Network Guidelines recommending total neoadjuvant therapy for brittny or locally unresectable disease and for medically inoperable patients. He will be referred to a colorectal surgeon prior to final treatment recommendations. The patient's medical treatment plan was discussed with Marv Abad M.D. Signed by: tJ Esteves 08/02/2022 9:12:40 AM
== END 2022-08-17 23:59 | disposition home or self-care (01) ==
PROVIDERS: PCP Clinical Nurse Specialist Adult Health; Visit Provider Radiology Radiation Oncology
DX: Z53.9 Procedure and treatment not carried out, unspecified reason (principal)

== ENCOUNTER 2022-08-31 10:15 | Day surgery (SDC) | payer BC, SELFPAY ==
[2022-08-30 08:10] VITALS: BMI 24.2
[2022-08-31] VITALS (7 sets, daily range): BP systolic 96–112; BP diastolic 42–58; PULSE 49–55; RESP 16–18; TEMP 36.3–36.6; O2SAT 100
--- NOTE | 2022-08-31 11:04 | W.PM.OPSUD ---
Surgery/Procedure H&P Update DATE OF PROCEDURE: August 31, 2022 DATE H&P PERFORMED: 08/24/22 H&P UPDATE INFORMATION: I have reviewed H&P completed within last 30 days, I have examined patient prior to procedure and No changes to prior documentation PLANNED PROCEDURE: Operation Date: 08/31/22 12:00 Proposed Procedures p [id number] port placment, C20(Not Applicable) - Casey Dutton, DO
[2022-08-31] MEDS: sodium chloride 0.9% 1,000 ML 30 ML IV (11:12)
--- NOTE | 2022-08-31 11:44 | XR_ITS ---
WS: [id number] XR chest 1V portable [id number] REASON FOR EXAM: post op mediport FINDINGS: Chemotherapy infusion port over the left lateral chest with infusion catheter in the left subclavian vein into the superior vena cava where the tip is located the cavoatrial junction. Cardiomegaly. No pneumothorax or other acute chest abnormality. XR/XR chest 1V portable [id number] IMPRESSION: Chemotherapy port and infusion catheter placement as above.
--- NOTE | 2022-08-31 11:44 | SC_ITS ---
WS: [id number] C-arm FL for CVA [id number] REASON FOR EXAM: Mediport FINDINGS: Catheter placement trans left subclavian vein into the superior vena cava with the tip at the cavoatr ial junction. SC/C-arm FL for CVA [id number] IMPRESSION: Catheter placement as above.
[2022-08-31] MEDS: ceFAZolin 2,000 MG in sodium chloride 0.9% (plus) 50 ML 100 MG IV (12:15)
[2022-08-31] MEDS: heparin, porcine 1,000 unit/mL INJ 10 mL 10000 UNIT IRRIGATION (12:39)
[2022-08-31] MEDS: lidocaine-epi 2% 20 mL INJ INJECTION (12:43)
--- NOTE | 2022-08-31 13:30 | PM.OP ---
Operative Report Date of procedure: August 31, 2022 Pre-op diagnosis: Rectal cancer Post-op diagnosis: same Procedure done: Mediport placement Implants: PowerPort Specimens removed/disposition: None Surgeon: Dr. Casey Dutton, DO Anesthesia: MAC Estimated blood loss (mL): 5 Complications: None apparent Brief History: This is a very pleasant 56-year-old gentleman who was found to have rectal cancer. Oncology requested Mediport placement for chemotherapy access. The risk and benefits were explained and documented. Procedure: They put another order I will do right now things the patient was taken to the operating room and placed supine on the operating room table. All bony prominences were padded. She was given IV sedation and monitored throughout the case by the anesthesia personnel. SCDs were placed and turned on. The arms were tucked to the side. Patient received Ancef 2 g preoperatively IV. The bilateral chest wall was prepped and draped in usual sterile fashion using chlorhexidine base prep. Sterile drapes were applied. We did procedure pause prior to beginning. An 18 gauge needle was placed in the left subclavian vein. Dark, nonpulsatile blood was aspirated. A guidewire was placed through the needle centrally toward the atrial/vena caval junction. Fluoroscopy visualized good placement. The needle was removed and the guidewire was clipped to the drape with a hemostat. Further local anesthetic was infiltrated in the soft tissues of the left chest wall and a #15 blade was used to make a horizontal skin incision. A subcutaneous Mediport pocket was created using Bovie cautery, dissecting down through the skin and subcutaneous tissues. Meticulous hemostasis was achieved. The Mediport was sutured in position using 3-0 vicryl suture x2 stitches. A #15 blade was used to make a small skin henry around the guidewire insertion area. The Mediport tubing was tunneled through the subcutaneous tissues up to the needle insertion location. A dilator with a peel-away sheath was placed over the guidewire and placed centrally. After measuring the Mediport tubing was cut to length so that the tip would end at the atrial/vena caval junction. The inner cannula and the guidewire were removed, leaving the dilator sheath in place. The Mediport was flushed. The tip of the catheter was inserted through the peel-away sheath and the peel-away sheath removed in the standard fashion. The Mediport was accessed with a straight Schneider needle and dark, nonpulsatile blood was aspirated and flushed using heparinized saline to hep-lock the Mediport. Final fluoroscopy visualization showed no kink in the catheter and the tip of the Mediport tubing near the atrial/vena caval junction. Both skin incisions were thoroughly irrigated and suctioned dry. Meticulous hemostasis noted. The dermis was approximated with 3-0 Vicryl in an interrupted fashion. Skin was closed with Dermabond. Patient was awakened from anesthesia and transferred via her cart to the recovery room in stable condition. All needle, sponge, and instrument counts were correct per the operating personnel x2 counts.
--- NOTE | 2022-08-31 14:02 | ANES.PREANE2 ---
Pre-Anesthetic Assessment Height/Weight: Height 1.68 m Weight 68.039 kg Temp Pulse Resp BP Pulse Ox O2 Del Method 97.8 F 55 L 18 112/58 100 Room Air 08/31/22 13:20 08/31/22 13:39 08/31/22 13:39 08/31/22 13:39 08/31/22 13:39 08/31/22 13:39 Operation Date: 08/31/22 12:00 Proposed Procedures p [id number] port placment, C20(Not Applicable) - Casey Dutton DO Familial anesthetic complications: none Was Beta Soy taken within 24 hours: N/A Was Clonidine taken within 24 hours: N/A Last intake: Intake Last Liquid Date 08/30/22 Last Liquid Time 21:00 Last Solid Date 08/30/22 Last Solid Time 19:00 Social No alcohol and No tobacco Exam alert, oriented x 3, clear to auscultation bilaterally and regular rate & rhythm Airway Submandibular: within normal limits Cervical ROM: within normal limits Mallampati: Class II Dentition: full CV/HEM Anemia GI Rectal CA Anesthetic Plan ASA status: 2 Anesthesia: MAC Medications/Allergies Home Medications Medication Instructions Recorded Confirmed Last Taken Type docusate sodium 100 mg capsule 100 mg PO BID #10 caps 08/31/22 Unknown Rx ([facility]) hydrocodone 5 mg-acetaminophen 325 1 tab PO Q6H PRN pain #10 tabs 08/31/22 Unknown Rx mg tablet Allergies Allergy/AdvReac Type Severity Reaction Status Date / Time No Known Allergies Allergy Verified 08/31/22 10:34 [facility] Anesthesia Medical History Adenocarcinoma of rectum Iron deficiency anemia Surgical History (Updated 08/24/22 @ 15:24 by Casey Dutton DO) History of esophagogastroduodenoscopy (EGD) History of umbilical hernia repair Hx of colonoscopy 07/29/22 Family History Father Alcoholism Mother Pulmonary hypertension Other CAD (coronary artery disease) Cancer Diabetes Hypertension Social History Smoking and tobacco status: never smoked Alcohol intake: never Data Anesthesia Cardiac Studies: No Data to Display
--- NOTE | 2022-08-31 14:57 | ANE.PACU2 ---
Inpatient post-anesthesia follow up: Airway intact: Yes Vital signs: Temperature 97.8 F Pulse Rate 55 Respiratory Rate 18 Blood Pressure 112/58 Pulse Oximetry 100 Oxygen Delivery Me thod Room Air Oxygen Flow Rate Fraction of Inspir ed Oxygen Hydration adequate: Yes Nausea and vomiting: No Pain level: 2 Mental status: Baseline
== END 2022-08-31 13:55 | disposition home or self-care (01) ==
PROVIDERS: PCP Clinical Nurse Specialist Adult Health; Visit Provider Surgery
PROC: (CPT 36561; principal; 2022-08-31 12:00)
DX: C20 Malignant neoplasm of rectum (principal); D50.9 Iron deficiency anemia, unspecified
CPT/HCPCS: 36561; 71045; 77001; C1788; J0690; J1644; J2250; J3010; J7030

== ENCOUNTER 2022-09-15 08:30 | Oncology outpatient (recurring) (ONCR) | payer BC, SELFPAY ==
[2022-09-05] VITALS (12 sets, daily range): BP systolic 100–119; BP diastolic 41–67; PULSE 43–68; RESP 16–18; TEMP 35.5–36.3; O2SAT 99–100
[2022-09-05 07:35] LABS: Basophils % 0.9 %; Eosinophils # 0.1 10^3/uL (0.0-0.8); Eosinophils % 1.5 %; Lymphocytes # 1.3 10^3/uL (0.8-4.8); Lymphocytes % 28.5 %; Mean Corpuscular HGB Conc 26.4 g/dL (30.0-36.0); Mean Corpuscular Hemoglobin 18.7 pg (28.0-34.0); Mean Corpuscular Volume 70.7 fl (80-94); Mean Platelet Volume 9.7 fL (7.4-10.4); Monocytes # 0.3 10^3/uL (0.2-0.9); Monocytes % 6.7 %; Neutrophils % 62.2 %; Nucleated Red Blood Cells # 0.1 /100WBC; Nucleated Red Blood Cells % 1.3 %; Platelet Count 207 10^3/cmm (130-400); Red Blood Count 2.46 10^6/uL (4.1-5.3); Red Cell Distribution Width 25.2 % (12.1-15.1); White Blood Count 4.7 10^3/uL (4.0-10.0)
[2022-09-05 07:51] LABS: Alanine Aminotransferase < 5 U/L (0-41); Albumin Level 3.5 g/dL (3.5-5.2); Alkaline Phosphatase 64 U/L (40-130); Anion Gap 12.2 (5-19); Aspartate Amino Transferase 5 U/L (0-40); Blood Urea Nitrogen 15 mg/dL (6-20); Calcium 8.4 mg/dL (8.5-10.5); Carbon Dioxide 25 mmol/L (22-29); Chloride 107 mmol/L (98-107); Globulin 1.9 g/dL (1.3-4.6); Glomerular Filtration Rate 69.5 mL/min (90-130); Glucose 87 mg/dL (65-115); Osmolality Calculated 290 mOsm/kg (285-295); Potassium 4.2 mmol/L (3.5-5.1); Sodium 140 mmol/L (136-145); Total Bilirubin 0.6 mg/dL (0.15-1.2); Total Protein 5.4 g/dL (6.6-8.7)
[2022-09-05 07:54] LABS: Hematocrit 17.4 % (42.0-52.0); Hemoglobin 4.6 g/dL (11.7-16.6)
[2022-09-05] MEDS: acetaminophen 325 mg Tablet 650 MG PO (09:58)
[2022-09-05] MEDS: diphenhydrAMINE 25 mg Capsule PO (09:58)
[2022-09-05] MEDS: sodium chloride 0.9% 250 mL Bag IV (10:39)
[2022-09-05] MEDS: FUROsemide 10 mg/mL SDV 2mL 20 MG IVP (12:40)
[2022-09-06] VITALS (11 sets, daily range): BP systolic 104–118; BP diastolic 41–68; PULSE 44–61; RESP 16–17; TEMP 36.3–36.7; O2SAT 98–100
[2022-09-06] MEDS: sodium chloride 0.9% 250 ML 75 ML IV (08:18)
[2022-09-06] MEDS: acetaminophen 325 mg Tablet 650 MG PO (08:18)
[2022-09-06] MEDS: diphenhydrAMINE 25 mg Capsule PO (08:20)
[2022-09-06] MEDS: FUROsemide 10 mg/mL SDV 2mL 20 MG IVP (11:02)
[2022-09-07 08:32] VITALS: BP 115/64; PULSE 50; RESP 16; TEMP 36.4; O2SAT 99; BMI 23.8
[2022-09-07 08:55] LABS: Basophils % 0.7 %; Eosinophils # 0.1 10^3/uL (0.0-0.8); Eosinophils % 1.6 %; Hematocrit 27.9 % (42.0-52.0); Hemoglobin 8.5 g/dL (11.7-16.6); Lymphocytes # 1.2 10^3/uL (0.8-4.8); Lymphocytes % 20.9 %; Mean Corpuscular HGB Conc 30.5 g/dL (30.0-36.0); Mean Corpuscular Hemoglobin 23.1 pg (28.0-34.0); Mean Corpuscular Volume 75.8 fl (80-94); Monocytes # 0.4 10^3/uL (0.2-0.9); Monocytes % 7.1 %; Neutrophils % 69.2 %; Nucleated Red Blood Cells % 0.7 %; Platelet Count 191 10^3/cmm (130-400); Red Blood Count 3.68 10^6/uL (4.1-5.3); Red Cell Distribution Width 23.4 % (12.1-15.1); White Blood Count 5.6 10^3/uL (4.0-10.0)
[2022-09-07 09:04] LABS: Iron 12 ug/dL (59-158); Percent Saturation 4.5 % (20-50); Total Iron Binding Capacity 263 mcg/dl; Unsaturated Iron Binding 251 ug/dL (112-347)
[2022-09-07 09:43] LABS: Slide Review Slide Review Perform
[2022-09-07] MEDS: dextrose 5% 250 ML 75 ML IV (10:40)
[2022-09-07] MEDS: palonosetron 0.25 mg/5 mL SDV IVP (10:41)
[2022-09-07] MEDS: leucovorin 700 MG in dextrose 5% 250 ML 62.5 MG IV (12:10)
[2022-09-07] MEDS: fluorouraciL 4,200 MG, elastomeric pump 1 PUMP in sodium chloride 0.9% (100 ml) 8 ML IV (15:46)
[2022-09-07 16:00] VITALS: BP 102/60; PULSE 53; RESP 16; TEMP 36.7; O2SAT 98
[2022-09-09 11:36] VITALS: BP 104/59; PULSE 62; RESP 16; TEMP 36.9; O2SAT 99
[2022-09-15 08:24] VITALS: BP 112/60; PULSE 49; RESP 18; TEMP 36.4; O2SAT 100
[2022-09-15 08:45] LABS: Basophils % 0.5 %; Eosinophils # 0.1 10^3/uL (0.0-0.8); Eosinophils % 2.1 %; Hematocrit 26.7 % (42.0-52.0); Hemoglobin 7.7 g/dL (11.7-16.6); Lymphocytes # 1.2 10^3/uL (0.8-4.8); Lymphocytes % 20.6 %; Mean Corpuscular HGB Conc 28.8 g/dL (30.0-36.0); Mean Corpuscular Hemoglobin 22.8 pg (28.0-34.0); Mean Platelet Volume 9.9 fL (7.4-10.4); Monocytes # 0.4 10^3/uL (0.2-0.9); Monocytes % 7.3 %; Neutrophils % 69.1 %; Nucleated Red Blood Cells % 0 %; Platelet Count 271 10^3/cmm (130-400); Red Blood Count 3.38 10^6/uL (4.1-5.3); Red Cell Distribution Width 23.9 % (12.1-15.1); White Blood Count 5.6 10^3/uL (4.0-10.0)
[2022-09-15 09:08] LABS: Alanine Aminotransferase < 5 U/L (0-41); Albumin Level 3.7 g/dL (3.5-5.2); Alkaline Phosphatase 54 U/L (40-130); Aspartate Amino Transferase 11 U/L (0-40); Blood Urea Nitrogen 15 mg/dL (6-20); Calcium 8.1 mg/dL (8.5-10.5); Carbon Dioxide 24 mmol/L (22-29); Chloride 111 mmol/L (98-107); Ferritin 8 ng/mL (30-400); Globulin 1.8 g/dL (1.3-4.6); Glomerular Filtration Rate 87.6 mL/min (90-130); Glucose 88 mg/dL (65-115); Iron 8 ug/dL (59-158); Osmolality Calculated 296 mOsm/kg (285-295); Sodium 143 mmol/L (136-145); Total Bilirubin 0.5 mg/dL (0.15-1.2); Total Iron Binding Capacity 259 mcg/dl; Total Protein 5.5 g/dL (6.6-8.7); Unsaturated Iron Binding 251 ug/dL (112-347)
[2022-09-15 09:16] LABS: Anion Gap 12.7 (5-19); Potassium 4.7 mmol/L (3.5-5.1)
== END 2022-09-16 23:59 | disposition home or self-care (01) ==
PROVIDERS: Internal Medicine Medical Oncology; PCP Clinical Nurse Specialist Adult Health; Visit Provider Radiology Radiation Oncology
DX: C20 Malignant neoplasm of rectum; D50.0 Iron deficiency anemia secondary to blood loss (chronic); Z79.899 Other long term (current) drug therapy
CPT/HCPCS: 36430; 36591; 80053; 82728; 83540; 83550; 85025; 86850; 86900; 86920; 96361; 96367; 96368; 96375; 96413; 96416; 96523; J0640; J1100; J1642; J1940; J2469; J7050; J7060; J9190; J9263; P9016

== ENCOUNTER → 2022-09-16 07:55 | Day surgery (SDC) | payer BC, SELFPAY ==
[2022-09-16] VITALS (11 sets, daily range): BP systolic 100–125; BP diastolic 49–66; PULSE 45–61; RESP 18; TEMP 36.1–36.7; O2SAT 97–100
[2022-09-16] MEDS: sodium chloride 0.9% 100 mL Bag 50 ML IV ×2 (10:12→12:13)
--- NOTE | 2022-09-16 12:11 | PC.NURSE ---
Pt referral from Oncology for blood transfusion. Hb 09/15/22 7.7. Pt to receive 2 units PRBC's. Pt tolerated without difficulty. No reaction noted. Pt to follow up with Oncology September 21.
== END ==
LOC: GILAB 07:56
PROVIDERS: PCP Clinical Nurse Specialist Adult Health; Visit Provider Internal Medicine Medical Oncology
DX: D50.0 Iron deficiency anemia secondary to blood loss (chronic) (principal); Z79.899 Other long term (current) drug therapy
CPT/HCPCS: 36430; 86850; 86900; 86920; P9016

== ENCOUNTER 2022-10-07 11:00 | Oncology outpatient (recurring) (ONCR) | payer BC, SELFPAY ==
[2022-09-21 07:34] VITALS: BP 127/73; PULSE 47; RESP 18; TEMP 36.1; O2SAT 98
[2022-09-21 07:55] LABS: Basophils # 0.1 10^3/uL (0.0-0.1); Eosinophils # 0.1 10^3/uL (0.0-0.8); Eosinophils % 2.3 %; Hematocrit 32.9 % (42.0-52.0); Hemoglobin 9.6 g/dL (11.7-16.6); Lymphocytes # 1.5 10^3/uL (0.8-4.8); Lymphocytes % 26.2 %; Mean Corpuscular HGB Conc 29.2 g/dL (30.0-36.0); Mean Corpuscular Hemoglobin 23.2 pg (28.0-34.0); Mean Corpuscular Volume 79.7 fl (80-94); Mean Platelet Volume 9.8 fL (7.4-10.4); Monocytes # 0.5 10^3/uL (0.2-0.9); Monocytes % 9.1 %; Neutrophils % 61.2 %; Nucleated Red Blood Cells % 0 %; Platelet Count 351 10^3/cmm (130-400); Red Blood Count 4.13 10^6/uL (4.1-5.3); Red Cell Distribution Width 22.1 % (12.1-15.1); White Blood Count 5.7 10^3/uL (4.0-10.0)
[2022-09-21 08:25] LABS: Alanine Aminotransferase 7 U/L (0-41); Albumin Level 3.5 g/dL (3.5-5.2); Alkaline Phosphatase 60 U/L (40-130); Anion Gap 12.3 (5-19); Aspartate Amino Transferase 7 U/L (0-40); Blood Urea Nitrogen 19 mg/dL (6-20); Calcium 8.4 mg/dL (8.5-10.5); Carbon Dioxide 24 mmol/L (22-29); Chloride 110 mmol/L (98-107); Globulin 2.1 g/dL (1.3-4.6); Glomerular Filtration Rate 87.6 mL/min (90-130); Glucose 100 mg/dL (65-115); Osmolality Calculated 296 mOsm/kg (285-295); Potassium 4.3 mmol/L (3.5-5.1); Sodium 142 mmol/L (136-145); Total Bilirubin 0.7 mg/dL (0.15-1.2); Total Protein 5.6 g/dL (6.6-8.7)
[2022-09-21] MEDS: palonosetron 0.25 mg/5 mL SDV IVP (10:55)
[2022-09-21] MEDS: dextrose 5% 250 ML 75 ML IV (10:55)
[2022-09-21] MEDS: ferric carboxy (IVPB) 750 MG in sodium chloride 0.9% (100 ml) 100 ML 345 MG IV (11:09)
[2022-09-21] MEDS: oxaliplatin 100 MG, oxaliplatin 46 MG in dextrose 5% 250 ML 69.8 MG IV (11:34)
[2022-09-21] MEDS: leucovorin 690 MG in dextrose 5% 250 ML 62.5 MG IV (11:35)
[2022-09-21] MEDS: fluorouraciL 4,150 MG, elastomeric pump 1 PUMP in sodium chloride 0.9% (100 ml) 9 ML IV (14:41)
[2022-09-21 14:56] VITALS: BP 112/62; PULSE 46; TEMP 36.4; O2SAT 98
[2022-09-23 11:16] VITALS: BP 106/58; PULSE 43; RESP 16; TEMP 36.6; O2SAT 98
[2022-10-05 08:53] VITALS: BP 135/72; PULSE 51; RESP 18; TEMP 36.5; O2SAT 98
[2022-10-05 09:13] LABS: Basophils % 0.7 %; Eosinophils # 0.1 10^3/uL (0.0-0.8); Eosinophils % 2.2 %; Hematocrit 32.3 % (42.0-52.0); Hemoglobin 9.4 g/dL (11.7-16.6); Lymphocytes # 1.6 10^3/uL (0.8-4.8); Lymphocytes % 29.4 %; Mean Corpuscular HGB Conc 29.1 g/dL (30.0-36.0); Mean Corpuscular Hemoglobin 23.6 pg (28.0-34.0); Mean Corpuscular Volume 81.2 fl (80-94); Mean Platelet Volume 9.7 fL (7.4-10.4); Monocytes # 0.4 10^3/uL (0.2-0.9); Monocytes % 7.9 %; Neutrophils # 3.24 10^3/uL (1.8-7.7); Neutrophils % 59.4 %; Nucleated Red Blood Cells % 0 %; Platelet Count 187 10^3/cmm (130-400); Red Blood Count 3.98 10^6/uL (4.1-5.3); Red Cell Distribution Width 22.9 % (12.1-15.1); White Blood Count 5.5 10^3/uL (4.0-10.0)
[2022-10-05 09:28] LABS: Alanine Aminotransferase < 5 U/L (0-41); Albumin Level 3.7 g/dL (3.5-5.2); Alkaline Phosphatase 62 U/L (40-130); Anion Gap 10.9 (5-19); Aspartate Amino Transferase 9 U/L (0-40); Blood Urea Nitrogen 14 mg/dL (6-20); Calcium 8.4 mg/dL (8.5-10.5); Carbon Dioxide 25 mmol/L (22-29); Chloride 111 mmol/L (98-107); Globulin 1.9 g/dL (1.3-4.6); Glomerular Filtration Rate 77.6 mL/min (90-130); Glucose 77 mg/dL (65-115); Osmolality Calculated 295 mOsm/kg (285-295); Potassium 3.9 mmol/L (3.5-5.1); Sodium 143 mmol/L (136-145); Total Bilirubin 0.4 mg/dL (0.15-1.2); Total Protein 5.6 g/dL (6.6-8.7)
[2022-10-05] MEDS: dextrose 5% 250 ML 75 ML IV (11:04)
[2022-10-05] MEDS: palonosetron 0.25 mg/5 mL SDV IVP (11:07)
[2022-10-05] MEDS: oxaliplatin 100 MG, oxaliplatin 46 MG in dextrose 5% 250 ML 69.8 MG IV (11:31)
[2022-10-05] MEDS: leucovorin 690 MG in dextrose 5% 250 ML 62.5 MG IV (11:32)
[2022-10-05] MEDS: ferric carboxy (IVPB) 750 MG in sodium chloride 0.9% (100 ml) 100 ML 345 MG IV (12:09)
[2022-10-05] MEDS: fluorouraciL 4,150 MG, elastomeric pump 1 PUMP in sodium chloride 0.9% (100 ml) 9 ML IV (14:53)
[2022-10-05 15:00] VITALS: BP 118/62; PULSE 58; RESP 16; TEMP 36.6; O2SAT 99
[2022-10-07 11:32] VITALS: BP 129/67; PULSE 43; O2SAT 99
== END 2022-10-17 23:59 | disposition home or self-care (01) ==
PROVIDERS: Internal Medicine Medical Oncology; PCP Clinical Nurse Specialist Adult Health; Visit Provider Specialist
DX: Z45.2 Encounter for adjustment and management of vascular access device (principal)
CPT/HCPCS: 80053; 85025; 96367; 96368; 96375; 96413; 96415; 96416; 96417; 96523; J0640; J1100; J1439; J1642; J2469; J7060; J9190; J9263

== ENCOUNTER 2022-11-16 07:45 | Oncology outpatient (recurring) (ONCR) | payer BC, SELFPAY ==
[2022-10-19 08:39] VITALS: BMI 24.5
[2022-10-19 08:40] VITALS: BP 121/76; PULSE 54; RESP 17; TEMP 36.3; O2SAT 99
[2022-10-19 08:52] LABS: Basophils # 0.1 10^3/uL (0.0-0.1); Basophils % 0.9 %; Eosinophils # 0.1 10^3/uL (0.0-0.8); Eosinophils % 2.1 %; Hematocrit 37.6 % (42.0-52.0); Hemoglobin 11.1 g/dL (11.7-16.6); Lymphocytes # 1.3 10^3/uL (0.8-4.8); Lymphocytes % 23.5 %; Mean Corpuscular HGB Conc 29.5 g/dL (30.0-36.0); Mean Corpuscular Hemoglobin 24.8 pg (28.0-34.0); Mean Corpuscular Volume 84.1 fl (80-94); Mean Platelet Volume 9.4 fL (7.4-10.4); Monocytes # 0.5 10^3/uL (0.2-0.9); Monocytes % 9.1 %; Neutrophils # 3.63 10^3/uL (1.8-7.7); Neutrophils % 63.7 %; Nucleated Red Blood Cells % 0 %; Platelet Count 145 10^3/cmm (130-400); Red Blood Count 4.47 10^6/uL (4.1-5.3); Red Cell Distribution Width 23.7 % (12.1-15.1); White Blood Count 5.7 10^3/uL (4.0-10.0)
[2022-10-19 09:16] LABS: Slide Review Slide Review Perform
[2022-10-19 09:23] LABS: Alanine Aminotransferase 19 U/L (0-41); Albumin Level 3.7 g/dL (3.5-5.2); Alkaline Phosphatase 70 U/L (40-130); Anion Gap 14.5 (5-19); Aspartate Amino Transferase 22 U/L (0-40); Blood Urea Nitrogen 13 mg/dL (6-20); Calcium 8.8 mg/dL (8.5-10.5); Carbon Dioxide 25 mmol/L (22-29); Chloride 118 mmol/L (98-107); Glomerular Filtration Rate 69.5 mL/min (90-130); Glucose 91 mg/dL (65-115); Osmolality Calculated 314 mOsm/kg (285-295); Potassium 5.5 mmol/L (3.5-5.1); Sodium 152 mmol/L (136-145); Total Bilirubin 0.5 mg/dL (0.15-1.2); Total Protein 5.7 g/dL (6.6-8.7)
[2022-10-19] MEDS: dextrose 5% 250 ML 75 ML IV (11:11)
[2022-10-19 11:14] LABS: Iron 32 ug/dL (59-158); Percent Saturation 15.3 % (20-50); Total Iron Binding Capacity 209 mcg/dl; Unsaturated Iron Binding 177 ug/dL (112-347)
[2022-10-19] MEDS: palonosetron 0.25 mg/5 mL SDV IVP (11:15)
[2022-10-19] MEDS: leucovorin 690 MG in dextrose 5% 250 ML 79.75 MG IV (11:59)
[2022-10-19] MEDS: oxaliplatin 100 MG, oxaliplatin 46 MG in dextrose 5% 250 ML 69.8 MG IV (12:00)
[2022-10-19] MEDS: fluorouraciL 4,150 MG, elastomeric pump 1 PUMP in sodium chloride 0.9% (100 ml) 9 ML IV (14:04)
[2022-10-21 11:38] VITALS: BP 121/75; PULSE 54; RESP 18; TEMP 36.6; O2SAT 99
[2022-10-21 11:45] VITALS: BP 112/78; PULSE 78; RESP 18; TEMP 36.4; O2SAT 98
[2022-11-02 07:58] VITALS: BP 120/70; PULSE 54; RESP 18; TEMP 36; O2SAT 99
[2022-11-02 08:03] VITALS: BMI 24.8
[2022-11-02 08:11] LABS: Basophils % 0.6 %; Eosinophils # 0.1 10^3/uL (0.0-0.8); Eosinophils % 1.8 %; Hematocrit 38.6 % (42.0-52.0); Hemoglobin 11.7 g/dL (11.7-16.6); Lymphocytes # 1.3 10^3/uL (0.8-4.8); Lymphocytes % 25.1 %; Mean Corpuscular HGB Conc 30.3 g/dL (30.0-36.0); Mean Corpuscular Hemoglobin 25.7 pg (28.0-34.0); Mean Corpuscular Volume 84.8 fl (80-94); Mean Platelet Volume 9.6 fL (7.4-10.4); Monocytes # 0.5 10^3/uL (0.2-0.9); Monocytes % 9.3 %; Neutrophils # 3.24 10^3/uL (1.8-7.7); Nucleated Red Blood Cells % 0 %; Platelet Count 169 10^3/cmm (130-400); Red Blood Count 4.55 10^6/uL (4.1-5.3); Red Cell Distribution Width 21.3 % (12.1-15.1); White Blood Count 5.1 10^3/uL (4.0-10.0)
[2022-11-02 08:43] LABS: Alanine Aminotransferase 22 U/L (0-41); Albumin Level 3.5 g/dL (3.5-5.2); Alkaline Phosphatase 77 U/L (40-130); Anion Gap 11.1 (5-19); Aspartate Amino Transferase 25 U/L (0-40); Blood Urea Nitrogen 12 mg/dL (6-20); Calcium 8.8 mg/dL (8.5-10.5); Carbon Dioxide 26 mmol/L (22-29); Chloride 109 mmol/L (98-107); Globulin 2.2 g/dL (1.3-4.6); Glomerular Filtration Rate 77.6 mL/min (90-130); Glucose 87 mg/dL (65-115); Osmolality Calculated 293 mOsm/kg (285-295); Potassium 4.1 mmol/L (3.5-5.1); Sodium 142 mmol/L (136-145); Total Bilirubin 0.4 mg/dL (0.15-1.2); Total Protein 5.7 g/dL (6.6-8.7)
[2022-11-02 08:50] LABS: Slide Review Slide Review Perform
[2022-11-02] MEDS: dextrose 5% 250 ML 75 ML IV (10:22)
[2022-11-02] MEDS: palonosetron 0.25 mg/5 mL SDV IVP (10:25)
[2022-11-02] MEDS: oxaliplatin 100 MG, oxaliplatin 46 MG in dextrose 5% 250 ML 69.8 MG IV (11:01)
[2022-11-02] MEDS: leucovorin 690 MG in dextrose 5% 250 ML 62.5 MG IV (11:02)
[2022-11-02] MEDS: fluorouraciL 4,150 MG, elastomeric pump 1 PUMP in sodium chloride 0.9% (100 ml) 9 ML IV (14:13)
[2022-11-02 14:25] VITALS: BP 119/61; PULSE 50; RESP 16; TEMP 36.1; O2SAT 96
[2022-11-04 11:21] VITALS: BP 129/67; PULSE 49; RESP 16; TEMP 36.9; O2SAT 99
[2022-11-16 07:47] VITALS: BP 132/75; PULSE 45; RESP 16; TEMP 36.2; O2SAT 99
[2022-11-16 07:55] VITALS: BMI 25.0
[2022-11-16 08:05] LABS: Basophils % 0.5 %; Eosinophils # 0.1 10^3/uL (0.0-0.8); Eosinophils % 1.7 %; Hematocrit 40.2 % (37-53); Lymphocytes # 1.4 10^3/uL (0.8-4.8); Lymphocytes % 24.1 %; Mean Corpuscular HGB Conc 31.3 g/dL (30-55); Mean Corpuscular Hemoglobin 26.3 pg (27-33); Mean Corpuscular Volume 83.8 fl (82-101); Mean Platelet Volume 9.5 fL (7.4-10.4); Monocytes # 0.5 10^3/uL (0.2-0.9); Monocytes % 8.8 %; Neutrophils # 3.84 10^3/uL (1.8-7.7); Neutrophils % 64.6 %; Nucleated Red Blood Cells % 0 %; Platelet Count 135 10^3/cmm (157-399); Red Cell Distribution Width 19.9 % (12.1-15.1); White Blood Count 5.94 10^3/uL (3.29-11.43)
[2022-11-16 08:22] LABS: Alanine Aminotransferase 20 U/L (0-41); Albumin Level 3.7 g/dL (3.5-5.2); Alkaline Phosphatase 87 U/L (40-130); Anion Gap 10.9 (5-19); Aspartate Amino Transferase 22 U/L (0-40); Blood Urea Nitrogen 11 mg/dL (6-20); Calcium 8.6 mg/dL (8.5-10.5); Carbon Dioxide 27 mmol/L (22-29); Chloride 108 mmol/L (98-107); Globulin 2.3 g/dL (1.3-4.6); Glomerular Filtration Rate 87.6 mL/min (90-130); Glucose 117 mg/dL (65-115); Osmolality Calculated 294 mOsm/kg (285-295); Potassium 3.9 mmol/L (3.5-5.1); Sodium 142 mmol/L (136-145); Total Bilirubin 0.4 mg/dL (0.15-1.2)
[2022-11-16 08:43] LABS: Slide Review Slide Review Perform
[2022-11-16 08:49] LABS: Ferritin 88 ng/mL (30-400); Iron 28 ug/dL (59-158); Percent Saturation 13.3 % (20-50); Total Iron Binding Capacity 209 mcg/dl; Unsaturated Iron Binding 181 ug/dL (112-347)
[2022-11-16] MEDS: dextrose 5% 250 ML 75 ML IV (10:44)
[2022-11-16] MEDS: palonosetron 0.25 mg/5 mL SDV IVP (10:45)
[2022-11-16] MEDS: oxaliplatin 100 MG, oxaliplatin 46 MG in dextrose 5% 250 ML 69.8 MG IV (11:15)
[2022-11-16] MEDS: leucovorin 690 MG in dextrose 5% 250 ML 62.5 MG IV (11:15)
[2022-11-16] MEDS: fluorouraciL 4,150 MG, elastomeric pump 1 PUMP in sodium chloride 0.9% (100 ml) 9 ML IV (13:25)
[2022-11-16 13:30] VITALS: BP 125/69; PULSE 52; RESP 16; TEMP 36.6; O2SAT 97
== END 2022-11-17 23:59 | disposition home or self-care (01) ==
PROVIDERS: Internal Medicine Medical Oncology; PCP Clinical Nurse Specialist Adult Health; Visit Provider Nurse Practitioner Family
DX: C20 Malignant neoplasm of rectum (principal); Z51.11 Encounter for antineoplastic chemotherapy; D50.0 Iron deficiency anemia secondary to blood loss (chronic)
CPT/HCPCS: 80053; 82728; 83540; 83550; 85025; 96365; 96367; 96368; 96375; 96413; 96415; 96416; 96523; J0640; J1100; J1642; J2469; J7060; J9190; J9263

== ENCOUNTER 2022-12-12 07:34 | Outpatient (CLI) | payer BC, SELFPAY ==
[2022-12-12] MEDS: iohexol 350 mg/mL 500 mL Btl (per mL) PO (07:43)
--- NOTE | 2022-12-12 08:00 | CT_ITS ---
WS: [id number] CT ABDOMEN AND PELVIS WITH CONTRAST HISTORY: restaging rectal cancer TECHNIQUE: Imaging performed of the abdomen and pelvis with IV contrast. Single phase imaging of the abdomen. Coronal and sagittal reformats are submitted. All CT scans at [facility] use at [address] one of these dose optimization techniques: automated exposure control; mA and/or kV adjustment per patient size (includes targeted exams where dose is matched to clinical indication); or iterative re construction. IV CONTRAST: Omnipaque 350; 100 mL IV. Oral contrast: Yes. DLP: 321.74 mGy.cm COMPARISON: 07/29/2022 Lower thorax: Lung bases are clear. Heart is normal size. No hiatal hernia. Liver/biliary system: Normal size liver. There are 2 low-attenuation masses within the liver which ar e probably metastatic sites. Both of these have decreased in size since 07/29/2022. Towards the RIGHT diaphragmatic surface is a residual 1.5 cm ill-defined area of decreased attenuation. There is an add itional 0.7 cm mass in the posterior RIGHT lobe of the liver. Too small to characterize but unchanged mass in the central liver adjacent to the middle hepatic vein is probably a cyst. No bile duct dilat ation. Gallbladder: Normal. No gallstones or wall thickening. No pericholecystic fluid. Pancreas: Normal size pancreas and pancreatic duct. No adjacent inflammation. Spleen: Spleen is enlarged measuring 14.9 cm in length. Similar to the prior study. Benign scattered granulomata. Adrenal glands: Normal. Right kidney: Normal. Left kidney: Normal. Aorta: Normal. Lymphadenopathy: Increasing lymph node burden near the aortic bifurcation and along the proximal roberth c arteries. Several of these nodes are hypervascular. The largest is 7 mm at the bifurcation of the a jony. There are additional shoddy lymph nodes extending along the iliac chains. Additional mildly hyp erenhancing lymph nodes presacral and deep LEFT pelvis. Free fluid: None. GI tract: Normally distended stomach. No small bowel obstruction. There is marked retained fecal mate rial throughout the colon. Beginning in the distal sigmoid colon is circumferential wall thickening a nd narrowing of the sigmoid with circumferential thickening at the rectum. The soft tissue thickening is best seen on the sagittal imaging. Decreased attenuation encasing the rectum with narrowing of th e lumen. Abdominal wall: Unremarkable abdominal wall. No hernia. Pelvis: There is presacral soft tissue thickening. Mild stranding in the mesorectal fat. Bones: Unremarkable. IMPRESSION: 1. There is continued marked perirectal thickening and edema consistent with known rectal neoplasm. Part of these changes may be related to treatment. There is mild enhancement within the distal sigmoi d colon. This will need to be further evaluated closely for recurrence. 2. Diffuse constipation. Component of obstruction in the distal sigmoid and rectum is likely as ther e is a change in caliber. 3. Hepatic lesions x2 have been decreased significantly in size since 07/29/2022. These were likely m etastatic lesions which have decreased in size post treatment. 4. Although very small there are several lymph nodes near the aortic bifurcation and extending along the iliac chains and within the pelvis which have increased in size and are hyperemic. These lymph n odes are small but concerning for metastatic adenopathy. There is adjacent soft tissue infiltration w hich may be tumor or edema.
[2022-12-12] MEDS: iohexol 350 mg/mL 500 mL Btl (per mL) IV (09:07)
== END 2022-12-12 07:35 | disposition home or self-care (01) ==
PROVIDERS: PCP Clinical Nurse Specialist Adult Health; Visit Provider Internal Medicine Medical Oncology
DX: C20 Malignant neoplasm of rectum (principal); K59.00 Constipation, unspecified; K76.9 Liver disease, unspecified
CPT/HCPCS: 74177; Q9967

== ENCOUNTER 2022-12-16 11:30 | Oncology outpatient (recurring) (ONCR) | payer BC, SELFPAY ==
[2022-11-18 11:39] VITALS: BP 117/59; PULSE 51; RESP 16; TEMP 36.8; O2SAT 96
[2022-11-30 07:34] VITALS: BMI 24.8
[2022-11-30 07:38] VITALS: BP 118/65; PULSE 53; RESP 18; TEMP 35.9; O2SAT 98
[2022-11-30 07:49] LABS: Basophils % 0.6 %; Eosinophils # 0.1 10^3/uL (0.0-0.8); Eosinophils % 2.4 %; Hematocrit 41.5 % (37-53); Lymphocytes # 1.4 10^3/uL (0.8-4.8); Lymphocytes % 27.3 %; Mean Corpuscular HGB Conc 31.6 g/dL (30-55); Mean Corpuscular Hemoglobin 26.2 pg (27-33); Mean Platelet Volume 9.6 fL (7.4-10.4); Monocytes # 0.5 10^3/uL (0.2-0.9); Monocytes % 9.7 %; Neutrophils # 3.02 10^3/uL (1.8-7.7); Neutrophils % 59.8 %; Nucleated Red Blood Cells % 0 %; Platelet Count 139 10^3/cmm (157-399); Red Cell Distribution Width 18.6 % (12.1-15.1); White Blood Count 5.05 10^3/uL (3.29-11.43)
[2022-11-30 08:16] LABS: Alanine Aminotransferase 20 U/L (0-41); Albumin Level 3.7 g/dL (3.5-5.2); Alkaline Phosphatase 84 U/L (40-130); Anion Gap 11.7 (5-19); Aspartate Amino Transferase 23 U/L (0-40); Blood Urea Nitrogen 14 mg/dL (6-20); Calcium 8.8 mg/dL (8.5-10.5); Carbon Dioxide 26 mmol/L (22-29); Chloride 109 mmol/L (98-107); Globulin 2.4 g/dL (1.3-4.6); Glomerular Filtration Rate 77.6 mL/min (90-130); Glucose 130 mg/dL (65-115); Osmolality Calculated 298 mOsm/kg (285-295); Potassium 3.7 mmol/L (3.5-5.1); Sodium 143 mmol/L (136-145); Total Bilirubin 0.4 mg/dL (0.15-1.2); Total Protein 6.1 g/dL (6.6-8.7)
[2022-11-30 08:18] LABS: Slide Review Slide Review Perform
[2022-11-30 09:38] VITALS: BP 141/69; PULSE 98; RESP 16; TEMP 36.6; O2SAT 99
[2022-11-30] MEDS: dextrose 5% 250 ML 75 ML IV (09:55)
[2022-11-30] MEDS: palonosetron 0.25 mg/5 mL SDV IVP (09:55)
[2022-11-30] MEDS: leucovorin 690 MG in dextrose 5% 250 ML 62.5 MG IV (10:29)
[2022-11-30] MEDS: oxaliplatin 100 MG, oxaliplatin 46 MG in dextrose 5% 250 ML 69.8 MG IV (10:29)
[2022-11-30 13:05] VITALS: BP 143/72; PULSE 45; O2SAT 98
[2022-11-30] MEDS: fluorouraciL 4,150 MG, elastomeric pump 1 PUMP in sodium chloride 0.9% (100 ml) 9 ML IV (13:11)
[2022-12-02 11:13] VITALS: BP 144/70; PULSE 47; TEMP 36.6; O2SAT 98
[2022-12-14 08:00] VITALS: BMI 24.6
[2022-12-14 08:15] VITALS: BP 139/73; PULSE 51; RESP 18; TEMP 36.6; O2SAT 97
[2022-12-14 08:29] LABS: Basophils % 0.6 %; Eosinophils # 0.1 10^3/uL (0.0-0.8); Eosinophils % 1.4 %; Hematocrit 39.4 % (37-53); Lymphocytes # 1.4 10^3/uL (0.8-4.8); Lymphocytes % 28.4 %; Mean Corpuscular HGB Conc 31.7 g/dL (30-55); Mean Corpuscular Hemoglobin 26.2 pg (27-33); Mean Corpuscular Volume 82.4 fl (82-101); Mean Platelet Volume 9.8 fL (7.4-10.4); Monocytes # 0.5 10^3/uL (0.2-0.9); Monocytes % 10.1 %; Neutrophils # 2.86 10^3/uL (1.8-7.7); Neutrophils % 59.3 %; Nucleated Red Blood Cells % 0 %; Platelet Count 136 10^3/cmm (157-399); Red Blood Count 4.78 10^6/uL (3.85-5.65); Red Cell Distribution Width 17.3 % (12.1-15.1); White Blood Count 4.83 10^3/uL (3.29-11.43)
[2022-12-14 08:44] LABS: Alanine Aminotransferase 11 U/L (0-41); Albumin Level 3.2 g/dL (3.5-5.2); Alkaline Phosphatase 79 U/L (40-130); Anion Gap 12.9 (5-19); Aspartate Amino Transferase 14 U/L (0-40); Blood Urea Nitrogen 10 mg/dL (6-20); Calcium 8.4 mg/dL (8.5-10.5); Carbon Dioxide 26 mmol/L (22-29); Chloride 108 mmol/L (98-107); Creatinine Clr Calc Pharmacy 86.5074; Globulin 2.7 g/dL (1.3-4.6); Glomerular Filtration Rate 87.6 mL/min (90-130); Glucose 92 mg/dL (65-115); Osmolality Calculated 295 mOsm/kg (285-295); Potassium 3.9 mmol/L (3.5-5.1); Sodium 143 mmol/L (136-145); Total Bilirubin 0.4 mg/dL (0.15-1.2); Total Protein 5.9 g/dL (6.6-8.7)
[2022-12-14] MEDS: dextrose 5% 250 ML 50 ML IV (09:26)
[2022-12-14] MEDS: palonosetron 0.25 mg/5 mL SDV IVP (09:27)
[2022-12-14] MEDS: leucovorin 690 MG in dextrose 5% 250 ML 62.5 MG IV (10:41)
[2022-12-14] MEDS: oxaliplatin 100 MG, oxaliplatin 46 MG in dextrose 5% 250 ML 69.8 MG IV (10:42)
[2022-12-14] MEDS: fluorouraciL 4,150 MG, elastomeric pump 1 PUMP in sodium chloride 0.9% (100 ml) 9 ML IV (13:11)
[2022-12-14 13:32] VITALS: BP 125/60; PULSE 43; RESP 16; TEMP 35.7; O2SAT 98
[2022-12-16 11:45] VITALS: BP 116/59; PULSE 50; RESP 16; TEMP 36.8; O2SAT 95
== END 2022-12-17 23:59 | disposition home or self-care (01) ==
PROVIDERS: Internal Medicine Medical Oncology; PCP Clinical Nurse Specialist Adult Health; Visit Provider Nurse Practitioner Family
DX: Z45.1 Encounter for adjustment and management of infusion pump
CPT/HCPCS: 80053; 85025; 96367; 96368; 96375; 96413; 96415; 96416; 96523; J0640; J1100; J1642; J2469; J7060; J9190; J9263

== ENCOUNTER 2023-01-10 13:38 | Oncology outpatient (recurring) (ONCR) | payer BC, SELFPAY ==
[2022-12-28 07:49] VITALS: BP 128/72; PULSE 52; RESP 16; TEMP 36.8; O2SAT 99
[2022-12-28 08:12] LABS: Basophils % 0.5 %; Eosinophils # 0.1 10^3/uL (0.0-0.8); Eosinophils % 1.3 %; Hematocrit 40.7 % (37-53); Lymphocytes # 1.9 10^3/uL (0.8-4.8); Lymphocytes % 29.5 %; Mean Corpuscular HGB Conc 31.7 g/dL (30-55); Mean Corpuscular Hemoglobin 26.5 pg (27-33); Mean Corpuscular Volume 83.6 fl (82-101); Mean Platelet Volume 10.2 fL (7.4-10.4); Monocytes # 0.7 10^3/uL (0.2-0.9); Monocytes % 11.1 %; Neutrophils # 3.65 10^3/uL (1.8-7.7); Neutrophils % 57.3 %; Nucleated Red Blood Cells % 0 %; Platelet Count 143 10^3/cmm (157-399); Red Blood Count 4.87 10^6/uL (3.85-5.65); Red Cell Distribution Width 17.6 % (12.1-15.1); White Blood Count 6.37 10^3/uL (3.29-11.43)
[2022-12-28 08:48] LABS: Alanine Aminotransferase 15 U/L (0-41); Albumin Level 3.3 g/dL (3.5-5.2); Alkaline Phosphatase 89 U/L (40-130); Anion Gap 12.8 (5-19); Aspartate Amino Transferase 15 U/L (0-40); Blood Urea Nitrogen 10 mg/dL (6-20); Calcium 8.7 mg/dL (8.5-10.5); Carbon Dioxide 24 mmol/L (22-29); Chloride 108 mmol/L (98-107); Globulin 2.9 g/dL (1.3-4.6); Glomerular Filtration Rate 100.4 mL/min (90-130); Glucose 90 mg/dL (65-115); Osmolality Calculated 291 mOsm/kg (285-295); Potassium 3.8 mmol/L (3.5-5.1); Sodium 141 mmol/L (136-145); Total Bilirubin 0.6 mg/dL (0.15-1.2); Total Protein 6.2 g/dL (6.6-8.7)
[2023-01-02 14:14] VITALS: BP 136/83; PULSE 57; RESP 16; TEMP 37.3; O2SAT 98
[2023-01-02 14:31] LABS: Basophils % 0.4 %; Eosinophils # 0.1 10^3/uL (0.0-0.8); Eosinophils % 1.1 %; Hematocrit 41.7 % (37-53); Lymphocytes % 24.8 %; Mean Corpuscular HGB Conc 31.4 g/dL (30-55); Mean Corpuscular Hemoglobin 26.6 pg (27-33); Mean Corpuscular Volume 84.8 fl (82-101); Mean Platelet Volume 9.8 fL (7.4-10.4); Monocytes # 1.1 10^3/uL (0.2-0.9); Monocytes % 14.5 %; Neutrophils # 4.62 10^3/uL (1.8-7.7); Neutrophils % 58.8 %; Nucleated Red Blood Cells % 0 %; Platelet Count 247 10^3/cmm (157-399); Red Blood Count 4.92 10^6/uL (3.85-5.65); Red Cell Distribution Width 17.2 % (12.1-15.1); White Blood Count 7.86 10^3/uL (3.29-11.43)
[2023-01-02 14:56] LABS: Alanine Aminotransferase 10 U/L (0-41); Albumin Level 3.4 g/dL (3.5-5.2); Alkaline Phosphatase 89 U/L (40-130); Anion Gap 12.2 (5-19); Aspartate Amino Transferase 12 U/L (0-40); Blood Urea Nitrogen 9 mg/dL (6-20); Calcium 8.7 mg/dL (8.5-10.5); Carbon Dioxide 26 mmol/L (22-29); Chloride 101 mmol/L (98-107); Globulin 3.1 g/dL (1.3-4.6); Glucose 88 mg/dL (65-115); Osmolality Calculated 278 mOsm/kg (285-295); Potassium 4.2 mmol/L (3.5-5.1); Sodium 135 mmol/L (136-145); Total Bilirubin 0.5 mg/dL (0.15-1.2); Total Protein 6.5 g/dL (6.6-8.7)
--- NOTE | 2023-01-04 08:51 | ONCRAD TMN_ITS ---
Radiation Oncology Weekly Treatment Management Patient: Petr Waters MR#: [id number] : 1965 Attending Physician: Garrett Roberson Date of Service: 01/03/2023 Referring Physician(s) : Marv Abad M.D. Diagnosis: Radiotherapy to date: Course: Rectum Pelvis 23, Treatment Site: Rectum Pelvis 50Gy, Ref. ID: [id number], Energy: 15X, Dose/Fx (cGy): 200, #Fx: 2 25, Dose Correction (cGy): 0, Total Dose (cGy): 400, Start Date: 01/02/2023, , Elapsed Days: 1 Reason for visit: The patient is being seen today as part of their regularly scheduled weekly on treatment visits to assess for acute toxicities from radiotherapy. Review of Systems: Just began treatment with Xeloda. No nausea. Bowels are chronically irregular and ???weird??? Using stool softener for now. No diarrhea. Energy level ok. Working remotely at home. Vital Signs: Performed on 01/03/2023 1:56 PM BMI - 25.494 kg/m2 (high), Height - 65 in, Weight - 153.2 lbs, Temperature - 98.6 f, Pulse - 63 /min, Respiration - 16 /min, O2 Sat - 99 %, Pain - 0, Fatigue - 1 and BP - 125/ 76 mm(hg). Physical Exam: Imaging: Radiation therapy imaging related to accurate target localization (i.e. KV, MV and CBCT) was reviewed. Appropriate changes, if any, were made to ensure treatment accuracy. Plan: Good tolerance of treatment. Continue as planned. Signed by: Garrett Roberson 01/04/2023 8:50:02 AM Telemedicine Consent Patient seen today via Telemedicine by agreement and consent of patient. Telemedicine technology used during the visit include audio and, as available, review of images. This patient encounter is appropriate and reasonable under the circumstances given the patient???s particular presentation at this time. The patient has been advised of the potential risks and limitations of this mode of treatment (including but not limited to the absence of in-person examination) and has agreed to be treated in a remote fashion in spite of them. Any and all of the patient???s/patient???s family???s questions on this issue have been answered and I have made no promises or guarantees to the patient. The patient has also been advised to contact this office for worsening conditions or problems, and seek emergency medical treatment and/or call 911 if the patient deems either necessary.
[2023-01-09 12:05] VITALS: BP 119/74; PULSE 57; RESP 16; TEMP 36.7; O2SAT 97
[2023-01-09 12:17] LABS: Basophils % 0.5 %; Eosinophils # 0.1 10^3/uL (0.0-0.8); Eosinophils % 1.2 %; Hematocrit 37.8 % (37-53); Lymphocytes # 1.1 10^3/uL (0.8-4.8); Lymphocytes % 18.3 %; Mean Corpuscular HGB Conc 32.3 g/dL (30-55); Mean Corpuscular Hemoglobin 26.8 pg (27-33); Mean Corpuscular Volume 82.9 fl (82-101); Mean Platelet Volume 8.7 fL (7.4-10.4); Monocytes # 0.6 10^3/uL (0.2-0.9); Monocytes % 9.7 %; Neutrophils # 4.14 10^3/uL (1.8-7.7); Nucleated Red Blood Cells % 0 %; Platelet Count 208 10^3/cmm (157-399); Red Blood Count 4.56 10^6/uL (3.85-5.65); Red Cell Distribution Width 16.1 % (12.1-15.1)
[2023-01-09 12:37] LABS: Alanine Aminotransferase 6 U/L (0-41); Albumin Level 3.2 g/dL (3.5-5.2); Alkaline Phosphatase 70 U/L (40-130); Anion Gap 9.9 (5-19); Aspartate Amino Transferase 9 U/L (0-40); Blood Urea Nitrogen 9 mg/dL (6-20); Calcium 8.5 mg/dL (8.5-10.5); Carbon Dioxide 26 mmol/L (22-29); Chloride 105 mmol/L (98-107); Globulin 2.9 g/dL (1.3-4.6); Glucose 80 mg/dL (65-115); Osmolality Calculated 282 mOsm/kg (285-295); Potassium 3.9 mmol/L (3.5-5.1); Sodium 137 mmol/L (136-145); Total Bilirubin 0.4 mg/dL (0.15-1.2); Total Protein 6.1 g/dL (6.6-8.7)
--- NOTE | 2023-01-10 14:05 | ONCRAD TMN_ITS ---
Radiation Oncology Weekly Treatment Management Patient: Petr Waters MR#: [id number] : 1965 Attending Physician: Baudilio Nelson Date of Service: 01/10/2023 Referring Physician(s) : Marv Abad M.D. Diagnosis: Radiotherapy to date: Course: Rectum Pelvis 23, Treatment Site: Rectum Pelvis 50Gy, Ref. ID: [id number], Energy: 15X, Dose/Fx (cGy): 200, #Fx: , Dose Correction (cGy): 0, Total Dose (cGy): 1,400, Start Date: 01/02/2023, Elapsed Days: 8 Reason for visit: The patient is being seen today as part of their regularly scheduled weekly on treatment visits to assess for acute toxicities from radiotherapy. Review of Systems: Patient complains only mild to moderate fatigue. He has no complaints of dysuria, rectal bleeding, or diarrhea. He remains physically active and denies any difficulty sleeping. Vital Signs: Performed on 01/10/2023 1:44 PM BMI - 24.895 kg/m2 (high), Height - 65 in, Weight - 149.6 lbs, Temperature - 97.9 f, Pulse - 56 /min (low), Respiration - 16 /min, O2 Sat - 99 %, Pain - 0, Fatigue - 2 and BP - 133/ 74 mm(hg). Physical Exam: Alert and oriented male appearing his stated age. Skin in the treatment area is intact without erythema or desquamation. Patient amatory without assistance. Imaging: Radiation therapy imaging related to accurate target localization (i.e. KV, MV and CBCT) was reviewed. Appropriate changes, if any, were made to ensure treatment accuracy. Plan: Continue prescribed treatment. Signed by: Baudilio Nelson 01/10/2023 2:03:32 PM
== END 2023-01-10 23:59 | disposition home or self-care (01) ==
PROVIDERS: Internal Medicine Medical Oncology; PCP Clinical Nurse Specialist Adult Health; Visit Provider Radiology Radiation Oncology
DX: C20 Malignant neoplasm of rectum (principal); Z95.828 Presence of other vascular implants and grafts; Z51.0 Encounter for antineoplastic radiation therapy
CPT/HCPCS: 36591; 77263; 77300; 77301; 77334; 77338; 77386; 80053; 82378; 85025; 99024; J1642

== ENCOUNTER 2023-01-17 13:36 | Oncology outpatient (recurring) (ONCR) | payer BC, SELFPAY ==
[2023-01-16 13:10] VITALS: BMI 24.6
[2023-01-16 13:11] VITALS: BP 120/73; PULSE 60; RESP 16; TEMP 36.5; O2SAT 98
[2023-01-16 13:17] LABS: Basophils % 0.3 %; Eosinophils # 0.1 10^3/uL (0.0-0.8); Hematocrit 39.6 % (37-53); Lymphocytes % 14.5 %; Mean Corpuscular HGB Conc 32.1 g/dL (30-55); Mean Corpuscular Hemoglobin 27.1 pg (27-33); Mean Corpuscular Volume 84.6 fl (82-101); Mean Platelet Volume 9.4 fL (7.4-10.4); Monocytes # 0.5 10^3/uL (0.2-0.9); Monocytes % 7.2 %; Neutrophils # 5.13 10^3/uL (1.8-7.7); Neutrophils % 76.6 %; Nucleated Red Blood Cells % 0 %; Platelet Count 180 10^3/cmm (157-399); Red Blood Count 4.68 10^6/uL (3.85-5.65); Red Cell Distribution Width 16.6 % (12.1-15.1)
[2023-01-16 13:48] LABS: Alanine Aminotransferase 8 U/L (0-41); Albumin Level 3.3 g/dL (3.5-5.2); Alkaline Phosphatase 70 U/L (40-130); Aspartate Amino Transferase 10 U/L (0-40); Blood Urea Nitrogen 11 mg/dL (6-20); Calcium 8.8 mg/dL (8.5-10.5); Carbon Dioxide 26 mmol/L (22-29); Chloride 105 mmol/L (98-107); Globulin 2.8 g/dL (1.3-4.6); Glomerular Filtration Rate 116.7 mL/min (90-130); Glucose 99 mg/dL (65-115); Osmolality Calculated 285 mOsm/kg (285-295); Sodium 138 mmol/L (136-145); Total Bilirubin 0.5 mg/dL (0.15-1.2); Total Protein 6.1 g/dL (6.6-8.7)
--- NOTE | 2023-01-17 15:04 | ONCRAD TMN_ITS ---
Radiation Oncology Weekly Treatment Management Patient: Petr Hua MR#: [id number] : 1965> Attending Physician: Dr. Livia Zapata Date of Service: 01/17/2023 Fractions: along with Xeloda Referring Physician(s) : Marv Abad M.D. Diagnosis: Adenocarcinoma of the rectum Radiotherapy to date: Course: Rectum Pelvis 23, Treatment Site: Rectum Pelvi 50Gy, Ref. ID: [id number], Energy: 15X, Dose/Fx (cGy): 200, #Fx: , Dose Correction (cGy): 0, Total Dose (cGy): 2,400, Start Date: 01/02/2023, Elapsed Days: 15 Reason for visit: The patient is being seen today as part of their regularly scheduled weekly on treatment visits to assess for acute toxicities from radiotherapy. Review of Systems: Patient denies any complaints. He has no nausea vomiting or diarrhea. He still having bowel movements, through. He has noticed no change in bladder habits. Vital Signs: Physical Exam: Patient is in no apparent distress. Alert and oriented x3. Gait speech within normal limits. Skin without changes. Imaging: Radiation therapy imaging related to accurate target localization (i.e. KV, MV and CBCT) was reviewed. Appropriate changes, if any, were made to ensure treatment accuracy. Plan: This time he is doing well. He has essentially had no changes related to the radiation. He has had no issues with the Xeloda as well. We will continue with his treatments as planned. He has already met his surgeon so he will be ready to be referred back once we complete his treatment. Signed by: Dr. Livia Zpaata 01/17/2023 3:02:49 PM
== END 2023-01-17 23:59 | disposition home or self-care (01) ==
PROVIDERS: Nurse Practitioner Family; PCP Clinical Nurse Specialist Adult Health; Visit Provider Radiology Radiation Oncology
DX: C20 Malignant neoplasm of rectum (principal); Z95.828 Presence of other vascular implants and grafts; Z51.0 Encounter for antineoplastic radiation therapy
CPT/HCPCS: 36591; 77014; 77336; 77386; 77427; 80053; 85025; J1642

== ENCOUNTER 2023-01-28 13:34 | Emergency (ER) | payer BC, SELFPAY ==
[2023-01-28] VITALS (7 sets, daily range): BP systolic 96–124; BP diastolic 61–77; PULSE 53–92; RESP 16–25; TEMP 37.1; O2SAT 95–98; BMI 23.3
--- NOTE | 2023-01-28 13:55 | CTR_ITS ---
PROCEDURE INFORMATION: Exam: CT Abdomen And Pelvis With Contrast Exam date and time: 01/28/2023 6:16 PM Age: 57 years old Clinical indication: Abdominal pain; Localized; Left lower quadrant (llq); Prior surgery; Surgery date: 6+ months; Surgery type: Hernia, port; Patient HX: Rectal adenocarcinoma; Additional info: Abd pain TECHNIQUE: Imaging protocol: Computed tomography of the abdomen and pelvis with contrast. Radiation optimization: All CT scans at this facility use at least one of these dose optimization techniques: automated exposure control; mA and/or kV adjustment per patient size (includes targeted exams where dose is matched to clinical indication); or iterative reconstruction. Contrast material: OMNI 350; Contrast volume: 100 ml; Contrast route: INTRAVENOUS (IV); REPORTING DATA: Count of CT and Cardiac NM exams in prior 12 months: This patient has received 3 known CTs and 0 known cardiac nuclear medicine studies in the 12 months prior to the current study. COMPARISON: CT abdomen pelvis w con* [id number] 12/12/2022 9:04 AM RADIATION DOSE METRICS: Total DLP (mGy-cm): 505.48 FINDINGS: Liver: Nonspecific punctate low-attenuation lesion the right hepatic lobe near the intrahepatic IVC. Gallbladder and bile ducts: Normal. No calcified stones. No ductal dilation. Pancreas: Normal. No ductal dilation. Spleen: Calcified granulomas noted in the spleen. No splenomegaly. Adrenal glands: Normal. No mass. Kidneys and ureters: A subcentimeter low-attenuation lesion noted in the left kidney a probable cyst. No hydronephrosis. Stomach and bowel: There is asymmetric masslike wall thickening within the rectum and stricturing with massively dilated stool-filled bowel proximal to this location. Appendix: No evidence of appendicitis. Intraperitoneal space: Scattered areas of free fluid noted within the abdomen and pelvis surrounding the colon. There is a bifurcating collection with fluid air adjacent to the right lateral wall of the colon suspicious for a small abscess measuring 2.8 x 1.8 cm. Vasculature: Unremarkable. No abdominal aortic aneurysm. Lymph nodes: Unremarkable. No enlarged lymph nodes. Urinary bladder: Unremarkable as visualized. Reproductive: Unremarkable as visualized. Bones/joints: No acute fracture. Soft tissues: Unremarkable. CT/CT abdomen pelvis w con* [id number] IMPRESSION: 1. Masslike nodular wall thickening in the rectum consistent with known history of rectal adenocarcinoma. There is a diverting collection adjacent to the rectum suspicious for small abscess measuring 2.8 x 1.8 cm. 2. Colonic obstruction with massively dilated stool-filled colon proximal to the colonic stricture/rectal mass. 3. Scattered areas of free fluid noted within the abdomen and surrounding the colon. This is most likely secondary to the colonic obstruction with peritoneal/omental metastasis not excluded. COMMENTS: Consistent with the [employer]'s Incidental Findings Committee white paper (J Am Ho Radiol 2018): Any incidental renal lesion less than 1 cm or classified as too small to characterize, or any incidental cystic renal lesion characterized as simple-appearing, is likely benign. No follow-up imaging is recommended for these lesions per consensus recommendations based on imaging criteria.
[2023-01-28 14:42] LABS: Basophils # 0.1 10^3/uL (0.0-0.1); Basophils % 0.7 %; Eosinophils % 0.2 %; Lymphocytes # 0.4 10^3/uL (0.8-4.8); Lymphocytes % 4.5 %; Mean Corpuscular HGB Conc 31.9 g/dL (30-55); Mean Corpuscular Hemoglobin 28.2 pg (27-33); Mean Corpuscular Volume 88.5 fl (82-101); Mean Platelet Volume 9.4 fL (7.4-10.4); Monocytes # 0.3 10^3/uL (0.2-0.9); Monocytes % 3.2 %; Neutrophils # 8.25 10^3/uL (1.8-7.7); Neutrophils % 91.1 %; Nucleated Red Blood Cells % 0 %; Platelet Count 257 10^3/cmm (157-399); Red Blood Count 5.31 10^6/uL (3.85-5.65); Red Cell Distribution Width 18.7 % (12.1-15.1); White Blood Count 9.06 10^3/uL (3.29-11.43)
[2023-01-28 14:58] LABS: Alanine Aminotransferase < 5 U/L (0-41); Albumin Level 2.9 g/dL (3.5-5.2); Alkaline Phosphatase 63 U/L (40-130); Aspartate Amino Transferase 9 U/L (0-40); Blood Urea Nitrogen 14 mg/dL (6-20); Calcium 8.8 mg/dL (8.5-10.5); Carbon Dioxide 21 mmol/L (22-29); Chloride 98 mmol/L (98-107); Globulin 3.6 g/dL (1.3-4.6); Glomerular Filtration Rate 87.3 mL/min (90-130); Glucose 168 mg/dL (65-115); Osmolality Calculated 282 mOsm/kg (285-295); Sodium 134 mmol/L (136-145); Total Bilirubin 1.3 mg/dL (0.15-1.2); Total Protein 6.5 g/dL (6.6-8.7)
[2023-01-28 15:06] LABS: Anion Gap 18.8 (5-19); Potassium 3.8 mmol/L (3.5-5.1)
[2023-01-28 15:07] LABS: Slide Review Slide Review Perform
[2023-01-28 16:24] LABS: Reflex Lactate Order REFLEX LACTIC ORDERD
[2023-01-28] MEDS: sodium chloride 0.9% 500 ML IV (17:05)
[2023-01-28] MEDS: sodium chloride 0.9% 1,000 ML 999 ML IV (17:06)
[2023-01-28] MEDS: fentaNYL 50 mcg/mL INJ 2mL IVP (17:56)
--- NOTE | 2023-01-28 17:58 | W.ED.ABDPA2 ---
HPI - Abdominal Pain General: Chief Complaint: Abdominal Pain Stated Complaint: abdominal pain Time Seen by Provider: 01/28/23 13:55 History of Present Illness: Mr. Humphreys is a 57-year-old man who was diagnosed with rectal cancer in July 2022. He presents to the emergency department today with complaints of abdominal cramping. Patient reports has not had a bowel movement and has not tolerated food in about a week. He is currently receiving radiation Patient denies fever or chills. Denies nausea or vomiting Denies bowel movement. Does report had some flatus this morning Associated Symptoms: Reports bloating, constipation, GI cramping and hematochezia; Denies chills, diarrhea, dysuria, excessive flatus, fever(s), hematuria, nausea and vomiting Review of Systems General: Reports: 10 or more systems reviewed and unremarkable except in HPI and below Const: Reports: body aches, change in appetite, change in weight, fatigue and malaise; Denies: fever(s) or chills Eyes: Denies: change in vision, eye discomfort, eye discharge or eye redness ENMT: Denies: throat pain, enlarged tonsils, odynophagia, hoarseness, ear or mastoid pain, ear discharge, change in hearing, tinnitus, nasal discharge, nasal congestion, post nasal drip or sinus pain Card: Denies: chest pain, palpitations, irregular heart rhythm, edema, dyspnea on exertion, orthopnea or leg pain with exertion Resp: Denies: dyspnea, productive cough, non-productive cough, wheezing, stridor or chest congestion GI: Reports: abdominal pain, dysphagia, constipation, bloating, GI cramping, pain on defecation, rectal pain and hematochezia; Denies: nausea, vomiting, diarrhea or excessive flatus : Denies: flank pain, dysuria, urinary frequency, urinary urgency, urinary hesitancy, oliguria or hematuria Musc: Denies: neck pain, back pain, extremity pain, joint pain, joint swelling, joint redness, joint warmth or muscle weakness Skin/Breast: Denies: rash, pruritus, erythema, photosensitivity or new lesions Neuro: Denies: headache(s), numbness in extremities, weakness in extremities, sensory changes, lack of coordination, difficulty walking, frequent falls, dizziness, confusion, Slurred speech present, difficulty communicating thoughts, seizure-like activity or involuntary movements Endo: Denies: polyuria, polydipsia or tired all the time Loy/Lymph: Denies: easy bruising or easy bleeding PFSH ED PFSH: Medical History Adenocarcinoma of rectum Iron deficiency anemia Port-A-Cath in place Left chest wall 08/31/22 Surgical History History of esophagogastroduodenoscopy (EGD) History of umbilical hernia repair Hx of colonoscopy 07/29/22 Family History Father Alcoholism Mother Pulmonary hypertension Other CAD (coronary artery disease) Cancer Diabetes Hypertension Social History Smoking and tobacco/nicotine status: never used tobacco/nicotine Alcohol intake: never Physical Exam Const: COMMON NORMALS: no acute distress, patient oriented x3 and alert GENERAL APPEARANCE: cooperative ORIENTATION/CONSCIOUSNESS: Yes awake, Yes oriented to person, Yes oriented to place and Yes oriented to time HENMT: COMMON NORMALS: normocephalic and atraumatic HEAD & SCALP: normocephalic and atraumatic FACE & SINUS: normal facial exam MOUTH: Normal oral and palatal mucosa present THROAT: posterior oropharynx normal Eye: COMMON NORMALS: Equal, round and reactive pupils present, EOMs intact bilaterally, conjunctivae normal and no scleral icterus GENERAL EYE: appearance normal, both eyes and all related structures ALIGNMENT: Yes alignment normal PERIORBITAL: periorbital findings normal CONJUNCTIVA: Yes conjunctivae normal PUPIL: Yes Equal, round and reactive pupils present Neck/C-Spine: COMMON NORMALS: full ROM GENERAL: Yes normal visual inspection Lymph: LYMPHATIC: no lymphadenopathy noted Chest: COMMONS NORMALS: normal inspection of the chest Breast/axilla inspection: Yes no chest deformity, asymmetry, normal contours, no nodules, masses, tenderness Resp: COMMON NORMALS: normal respiratory effort, No retractions, No use of accessory muscles and clear to auscultation bilaterally EFFORT & INSPECTION: Yes able to speak in complete sentences and Yes symmetric chest movement AUSCULTATION: clear to auscultation bilaterally Cardio: COMMON NORMALS: regular rate, regular rhythm and Peripheral pulses 2+ throughout RATE: regular rate RHYTHM: regular rhythm PERIPHERAL PULSES: Peripheral pulses 2+ throughout GI: INSPECTION: Yes normal to inspection AUSCULTATION: Yes Hypoactive bowel sounds present (RUQ,RLQ, LUQ) RECTAL EXAM: Yes deferred Extremity: COMMON NORMALS: normal to inspection GENERAL: Yes normal exam except as noted Neuro: COMMON NORMALS: patient oriented x3 SENSORIUM/ORIENTATION: Yes alert, Yes oriented to person, Yes oriented to place and Yes oriented to time CRANIAL NERVES: Yes CN normal except as noted Psych: COMMON NORMALS: mental status grossly normal, Normal thought process present, cooperative, activity/motor behavior normal, denies homicidal ideation and denies suicidal ideation THOUGHT PROCESS: Normal thought process present Skin: COMMON NORMALS: no rashes or lesions noted, no wounds and turgor normal GENERAL SKIN EXAM: no rashes or lesions noted and turgor normal Course Vital Signs: Vital signs: Vital Signs Temperature 98.8 F 01/28/23 13:44 Pulse Rate 92 01/28/23 17:26 Respiratory Rate 16 01/28/23 18:46 Blood Pressure 124/77 01/28/23 17:26 Pulse Oximetry 98 01/28/23 18:20 Oxygen Delivery Me thod Room Air 01/28/23 18:20 MDM - Abdominal Pain Medical Decision Making Patient is a 57-year-old man with history of chronic anemia and rectal cancer. Currently receiving chemotherapy and radiation for a large rectal mass. Patient presents with acute on chronic?worsening abdominal discomfort. He has not tolerated food and very little water in the last week. Patient underwent a CBC, CMP, lactic acid. Lactic acid is 4.0.Repeat was 4.2. We have ordered 2L NS and pain medication. A CT abdomen and pelvis with contrast is ordered. IMPRESSION: 1. ? Masslike nodular wall thickening in the rectum consistent with known history of rectal adenocarcinoma. There is a diverting collection adjacent to the rectum suspicious for small abscess measuring 2.8 x 1.8 cm. 2. ? Colonic obstruction with massively dilated stool-filled colon proximal to the colonic stricture/rectal mass. 3. ? Scattered areas of free fluid noted within the abdomen and surrounding the colon. This is most likely secondary to the colonic obstruction with peritoneal/omental metastasis not excluded. Patient was started on Zosyn. I spoke with Dr. Dutton. He stated that he is not a rectal surgeon and recommends transfer. I contacted the patient's primary hospital?[facility]. Unfortunately they do not have any beds available. I contacted [facility]. They did have colorectal surgery and hospital beds available Dr. Stone was apprised of the patient's situation and imaging was sent electronically. Dr Stone wanted to know why we were not taking care of this patient here in [place]. He stated that this was a critical and emergent case that needed cared for immediately. I explained that our surgeon believed this case exceeded available resources. [facility] refused transfer and stated that the patient needed to be cared for here in [place] Dr. Dutton was contacted again and a number of phone calls were begun searching for a colorectal surgeon and available bed. [facility] did not have beds available [place]?did not have beds available [facility] Has excepted the patient. Dr. Dwayne Centeno. Bed assignment has been provided and transport has been arranged Lab Data 01/28/23 14:32 01/28/23 14:32 Labs/Radiology: Radiology Impressions Abdomen/Pelvis CT 01/28/23 13:55 IMPRESSION: 1. Masslike nodular wall thickening in the rectum consistent with known history of rectal adenocarcinoma. There is a diverting collection adjacent to the rectum suspicious for small abscess measuring 2.8 x 1.8 cm. 2. Colonic obstruction with massively dilated stool-filled colon proximal to the colonic stricture/rectal mass. 3. Scattered areas of free fluid noted within the abdomen and surrounding the colon. This is most likely secondary to the colonic obstruction with peritoneal/omental metastasis not excluded. COMMENTS: Consistent with the [employer]'s Incidental Findings Committee white paper (J Am Ho Radiol 2018): Any incidental renal lesion less than 1 cm or classified as too small to characterize, or any incidental cystic renal lesion characterized as simple-appearing, is likely benign. No follow-up imaging is recommended for these lesions per consensus recommendations based on imaging criteria. ADDENDUM: 01/28/231921 Findings were discussed with LUIS ADAM at 01/28/2023 7:19 PM ASSOCIATE SCIENTIST. Laboratory Results WBC 9.06 10^3/uL (3.29-11.43) 01/28/23 14:32 RBC 5.31 10^6/uL (3.85-5.65) 01/28/23 14:32 Hgb 15.00 g/dL (11.27-16.99) 01/28/23 14:32 Hct 47.0 % (37-53) 01/28/23 14:32 MCV 88.5 fl (82-101) 01/28/23 14:32 MCH 28.2 pg (27-33) 01/28/23 14:32 MCHC 31.9 g/dL (30-55) 01/28/23 14:32 RDW 18.7 % (12.1-15.1) H 01/28/23 14:32 Plt Count 257 10^3/cmm (157-399) 01/28/23 14:32 MPV 9.4 fL (7.4-10.4) 01/28/23 14:32 Neut % (Auto) 91.1 % 01/28/23 14:32 Lymph % (Auto) 4.5 % 01/28/23 14:32 [place] % (Auto) 3.2 % 01/28/23 14:32 Eos % (Auto) 0.2 % 01/28/23 14:32 Baso % (Auto) 0.7 % 01/28/23 14:32 Neut # (Auto) 8.25 10^3/uL (1.8-7.7) H 01/28/23 14:32 Lymph # (Auto) 0.4 10^3/uL (0.8-4.8) L 01/28/23 14:32 [place] # (Auto) 0.3 10^3/uL (0.2-0.9) 01/28/23 14:32 Eos # (Auto) 0.0 10^3/uL (0.0-0.8) 01/28/23 14:32 Baso # (Auto) 0.1 10^3/uL (0.0-0.1) 01/28/23 14:32 Nucleated RBC % (auto) 0 % 01/28/23 14:32 Nucleated RBCs # 0.0 /100WBC 01/28/23 14:32 Sodium 134 mmol/L (136-145) L 01/28/23 14:32 Potassium 3.8 mmol/L (3.5-5.1) 01/28/23 14:32 Chloride 98 mmol/L (98-107) 01/28/23 14:32 Carbon Dioxide 21 mmol/L (22-29) L 01/28/23 14:32 Anion Gap 18.8 (5-19) 01/28/23 14:32 BUN 14 mg/dL (6-20) 01/28/23 14:32 Creatinine 0.9 mg/dL (0.7-1.2) 01/28/23 14:32 GFR Calculation 87.3 mL/min (90-130) L 01/28/23 14:32 Glucose 168 mg/dL (65-115) H 01/28/23 14:32 Calculated Osmolality 282 mOsm/kg (285-295) L 01/28/23 14:32 Lactic Acid 4.0 mmol/L (0.5-2.2) H 01/28/23 14:32 Lactic Acid (Sepsis) 4.2 mmol/L (0.5-2.2) H* 01/28/23 17:37 Calcium 8.8 mg/dL (8.5-10.5) 01/28/23 14:32 Total Bilirubin 1.3 mg/dL (0.15-1.2) H 01/28/23 14:32 AST 9 U/L (0-40) 01/28/23 14:32 ALT < 5 U/L (0-41) 01/28/23 14:32 Alkaline Phosphatase 63 U/L (40-130) 01/28/23 14:32 Total Protein 6.5 g/dL (6.6-8.7) L 01/28/23 14:32 Albumin 2.9 g/dL (3.5-5.2) L 01/28/23 14:32 Globulin 3.6 g/dL (1.3-4.6) 01/28/23 14:32 All radiology interpretation(s) finalized by discharge Discharge Plan Discharge Patient Disposition: Transfer to ED Clinical Impression: Mass in rectum, Abscess of anal and rectal regions, Acidosis Condition: Stable Prescriptions: No Action capecitabine 500 mg tablet Referrals: Brett Munoz NP [Primary Care Provider] - Coding Level of Care Code ED First [facility]aker Feeder for [place]
[2023-01-28] MEDS: iohexol 350 mg/mL 500 mL Btl (per mL) IV (18:17)
[2023-01-28 18:18] LABS: Lactic Acid level (Lactate) 4.2 mmol/L (0.5-2.2)
[2023-01-28] MEDS: fentaNYL 50 mcg/mL INJ 2mL 75 MCG IVP (18:46)
[2023-01-28] MEDS: piperacillin-tazobactam 3.375 GM in sodium chloride 0.9% (plus) 50 ML IV (20:09)
--- NOTE | 2023-01-28 21:06 | PC.NURSE ---
spoke with Jer Mcclendon, gave report.
[2023-01-28] MEDS: fentaNYL 50 mcg/mL INJ 2mL 100 MCG IVP (21:12)
--- NOTE | 2023-01-28 21:13 | PC.NURSE ---
updated pt on transfer status and delay
[2023-01-28 21:27] LABS: Add Urine Microscopic? YES; Bilirubin Urine 1+ (Negative); Blood Urine Trace (Negative); Glucose Urine UA Norm (Normal); Ketones Urine 1+ (Negative); Leukocyte Esterase Urine Negative (Negative); Nitrate Urine Negative (Negative); Protein Urine 1+ (Negative); Urine Appearance Clear (CLEAR); Urine Color Amber (Yellow); Urobilinogen Urine 4 mg/dL (Negative); pH Urine 6.5 (5-7)
[2023-01-28 21:28] LABS: Add Urine Culture? No; Amorphous Sediment Urine 1+ /hpf; Bacteria Urine TRACE /hpf; Mucus Urine 1+ /hpf; RBC Urine RARE /hpf (0-2); Squamous Epithelial Cell Urine 0-4 /hpf (0-5); WBC Urine 0-4 /hpf (0-5)
--- NOTE | 2023-01-28 22:14 | PC.NURSE ---
report given to air evac, updated [facility] nurse on transfer update
== END 2023-01-28 22:15 ==
PROVIDERS: Emergency Provider Nurse Practitioner; PCP Clinical Nurse Specialist Adult Health
DX: K61.2 Anorectal abscess (principal); E87.20 Acidosis, unspecified; K62.9 Disease of anus and rectum, unspecified; C20 Malignant neoplasm of rectum; Z79.60 Long term (current) use of unspecified immunomodulators and immunosuppressants
CPT/HCPCS: 36415; 74177; 80053; 81001; 83605; 85025; 96361; 96374; 96375; 96376; 99285; J2543; J3010; J7030; J7040; Q9967

== ENCOUNTER 2023-01-30 13:45 | Oncology outpatient (recurring) (ONCR) | payer BC, SELFPAY ==
[2023-01-23 13:05] VITALS: BP 103/68; PULSE 81; RESP 16; TEMP 36.8; O2SAT 97
[2023-01-23 13:08] LABS: Basophils % 0.4 %; Eosinophils % 0.4 %; Lymphocytes # 0.8 10^3/uL (0.8-4.8); Lymphocytes % 9.8 %; Mean Corpuscular HGB Conc 33.2 g/dL (30-55); Mean Corpuscular Hemoglobin 27.8 pg (27-33); Mean Corpuscular Volume 83.9 fl (82-101); Mean Platelet Volume 8.9 fL (7.4-10.4); Monocytes # 0.9 10^3/uL (0.2-0.9); Monocytes % 11.2 %; Neutrophils # 6.44 10^3/uL (1.8-7.7); Neutrophils % 77.8 %; Nucleated Red Blood Cells % 0 %; Platelet Count 189 10^3/cmm (157-399); Red Blood Count 4.53 10^6/uL (3.85-5.65); Red Cell Distribution Width 17.5 % (12.1-15.1); White Blood Count 8.27 10^3/uL (3.29-11.43)
[2023-01-23 13:27] LABS: Alanine Aminotransferase < 5 U/L (0-41); Albumin Level 3.1 g/dL (3.5-5.2); Alkaline Phosphatase 61 U/L (40-130); Anion Gap 13.6 (5-19); Aspartate Amino Transferase 6 U/L (0-40); Blood Urea Nitrogen 10 mg/dL (6-20); Calcium 8.2 mg/dL (8.5-10.5); Carbon Dioxide 24 mmol/L (22-29); Chloride 102 mmol/L (98-107); Globulin 2.8 g/dL (1.3-4.6); Glucose 106 mg/dL (65-115); Osmolality Calculated 281 mOsm/kg (285-295); Potassium 3.6 mmol/L (3.5-5.1); Sodium 136 mmol/L (136-145); Total Protein 5.9 g/dL (6.6-8.7)
--- NOTE | 2023-01-23 15:05 | ECG_ITS ---
[facility] Test Date: 2023-01-23 Pat Name: Jt Humphreys Department: Room: Gender: Male Agency Sales Director: : 1965 Requested By: Ruby Crespo Order Number: [id number] Jauregui MD: Theresa Huang M.D. Measurements Intervals [place] Rate: 82 P: 0 [place]: 0 QRS: 52 QRSD: 105 T: 50 QT: 370 QTc: 432 Interpretive Statements SINUS RHYTHM WITH PAC'S AND VENTRICULAR PREMATURE COMPLEXES MODERATE ST DEPRESSION [0.05+ mV ST DEPRESSION] No previous ECG available for comparison Electronically Signed On 01-23-2023 16:08:37 OTR [employer] by Theresa Huang M.D. [email or web address] Jap[facility]orthwest [facility] medical centerThe Fanfare Groupdoctors [id number]
--- NOTE | 2023-01-24 14:18 | ONCRAD TMN_ITS ---
Radiation Oncology Weekly Treatment Management Patient: Jt Humphreys MR#: [id number] : 1965 Attending Physician: Dr. Livia Zapata Date of Service: 01/24/2023 Fractions: 17-25 along with Xeloda Chief complaint: Last or Monday he ate chili at [employer]. Shortly after that he began to become distended and have significant left-sided abdominal pain. He said this area bloated out and over the next few days became increasingly painful. By Monday he started having improvement and today it is much better. Over the weekend however he basically did not eat any additional food. He has subsequently lost 7 pounds. He is back now to eating and has tenderness still in the area that is improving daily. He will occasionally have sharp shooting pain that lasts approximately 5 to 10 seconds but these are becoming less frequent as well. Referring Physician(s) : Marv Abad M.D. Diagnosis: Rectal cancer Radiotherapy to date: Course: Rectum Pelvis 23, Treatment Site: Rectum Pelvis 50Gy, Ref. ID: [id number], Energy: 15X, Dose/Fx (cGy): 200, #Fx: 25, Dose Correction (cGy): 0, Total Dose (cGy): 3,400, Start Date: 01/02/2023, Elapsed Days: Reason for visit: The patient is being seen today as part of their regularly scheduled weekly on treatment visits to assess for acute toxicities from radiotherapy. Review of Systems: Vital Signs: Performed on 01/24/2023 2:06 PM BMI - 24.296 kg/m2 (high), Height - 65 in, Weight - 146 lbs, Temperature - 98.4 f, Pulse - 61 /min, Respiration - 16 /min, O2 Sat - 98 %, Pain - 4, Fatigue - 0 and BP - 128/ 64 mm(hg)(/low). Physical Exam: Patient is in no apparent distress. His abdomen is nondistended. It is mildly tender throughout the left quadrant. He has no skin changes. Imaging: Radiation therapy imaging related to accurate target localization (i.e. KV, MV and CBCT) was reviewed. Appropriate changes, if any, were made to ensure treatment accuracy. Plan: At this point we talked about the toxicity of both the radiation and the Xeloda. I reminded him that even though the Xeloda is in pill form it is still a chemotherapy drug. We talked about how he is improving. He would like to weigh every day which we will do. I have asked him to try and maintain his weight and not lose anymore. He does feel like he is drinking enough to not be dehydrated. We also talked about the change in caliber that he had of his stools. I have encouraged him to be optimistic about this as this means that the radiation is killing the cancer off. This point we will continue with his treatments as planned. Signed by: Dr. Livia Zapata 01/24/2023 2:15:57 PM
== END 2023-02-16 23:59 | disposition home or self-care (01) ==
PROVIDERS: Nurse Practitioner Family; PCP Clinical Nurse Specialist Adult Health; Visit Provider Radiology Radiation Oncology
DX: Z53.9 Procedure and treatment not carried out, unspecified reason
CPT/HCPCS: 36591; 77014; 77336; 77386; 80053; 85025; 93005; J1642

== ENCOUNTER 2023-03-16 15:00 | Oncology outpatient (recurring) (ONCR) | payer BC, SELFPAY ==
[2023-03-16 15:15] VITALS: BP 119/72; PULSE 79; RESP 16; TEMP 37.1; O2SAT 99
[2023-03-16 15:24] LABS: Basophils % 0.4 %; Eosinophils # 0.1 10^3/uL (0.0-0.8); Eosinophils % 0.5 %; Hematocrit 31.2 % (37-53); Lymphocytes # 1.1 10^3/uL (0.8-4.8); Lymphocytes % 9.7 %; Mean Corpuscular HGB Conc 30.4 g/dL (30-55); Mean Corpuscular Hemoglobin 27.7 pg (27-33); Mean Platelet Volume 8.8 fL (7.4-10.4); Monocytes # 0.6 10^3/uL (0.2-0.9); Monocytes % 5.6 %; Neutrophils # 9.06 10^3/uL (1.8-7.7); Neutrophils % 83.1 %; Nucleated Red Blood Cells % 0 %; Platelet Count 296 10^3/cmm (157-399); Red Blood Count 3.43 10^6/uL (3.85-5.65); White Blood Count 10.91 10^3/uL (3.29-11.43)
[2023-03-16 16:09] LABS: Alanine Aminotransferase 18 U/L (0-41); Albumin Level 3.1 g/dL (3.5-5.2); Alkaline Phosphatase 140 U/L (40-130); Anion Gap 13.9 (5-19); Aspartate Amino Transferase 18 U/L (0-40); Blood Urea Nitrogen 12 mg/dL (6-20); Calcium 8.4 mg/dL (8.5-10.5); Carbon Dioxide 26 mmol/L (22-29); Chloride 102 mmol/L (98-107); Globulin 3.2 g/dL (1.3-4.6); Glomerular Filtration Rate 139.4 mL/min (90-130); Glucose 108 mg/dL (65-115); Osmolality Calculated 286 mOsm/kg (285-295); Potassium 3.9 mmol/L (3.5-5.1); Sodium 138 mmol/L (136-145); Total Bilirubin 0.5 mg/dL (0.15-1.2); Total Protein 6.3 g/dL (6.6-8.7)
[2023-03-16 16:25] LABS: Iron 26 ug/dL (59-158); Percent Saturation 20.9 % (20-50); Total Iron Binding Capacity 124 mcg/dl; Unsaturated Iron Binding 98 ug/dL (112-347)
== END 2023-03-19 23:59 | disposition home or self-care (01) ==
PROVIDERS: Internal Medicine Medical Oncology; PCP Clinical Nurse Specialist Adult Health; Visit Provider Specialist
DX: Z53.9 Procedure and treatment not carried out, unspecified reason (principal); C20 Malignant neoplasm of rectum; D64.9 Anemia, unspecified
CPT/HCPCS: 36591; 80053; 82378; 83540; 83550; 85025; J1642

== ENCOUNTER 2023-04-18 13:19 | Oncology outpatient (recurring) (ONCR) | payer BC, SELFPAY | END 2023-04-19 23:59 | disposition home or self-care (01) | LOC: ONCMED 13:20 | PROVIDERS: PCP Clinical Nurse Specialist Adult Health; Visit Provider Specialist | DX: Z53.9 Procedure and treatment not carried out, unspecified reason ==

== ENCOUNTER 2023-05-23 08:27 | Oncology outpatient (recurring) (ONCR) | payer BC, SELFPAY | END 2023-06-18 23:59 | disposition home or self-care (01) | PROVIDERS: PCP Clinical Nurse Specialist Adult Health; Visit Provider Internal Medicine Medical Oncology | DX: Z45.2 Encounter for adjustment and management of vascular access device (principal) | CPT/HCPCS: 96523; J1642 ==

== ENCOUNTER 2023-07-18 13:46 | Oncology outpatient (recurring) (ONCR) | payer BC, SELFPAY | END 2023-07-18 23:59 | disposition home or self-care (01) | PROVIDERS: PCP Clinical Nurse Specialist Adult Health; Visit Provider Internal Medicine Medical Oncology | DX: Z45.2 Encounter for adjustment and management of vascular access device (principal) | CPT/HCPCS: 36591; 96523 ==

== ENCOUNTER 2023-08-09 14:18 | Outpatient (CLI) | payer BC, SELFPAY ==
[2023-08-09] MEDS: iohexol 350 mg/mL 500 mL Btl (per mL) IV ×2 (15:23→15:39)
--- NOTE | 2023-08-09 15:30 | CTR_ITS ---
PROCEDURE INFORMATION: Exam: CT Chest With Contrast; Diagnostic Exam date and time: 08/09/2023 3:34 PM Age: 57 years old Clinical indication: Condition or disease; Other: Follow up cancer; Prior surgery; Surgery date: 6+ months; Surgery type: Colorectal surgery, port; Additional info: Rectal cancer, please schedule on 08/15/23 with his appointment for TECHNIQUE: Imaging protocol: Diagnostic computed tomography of the chest with contrast. Radiation optimization: All CT scans at this facility use at least one of these dose optimization techniques: automated exposure control; mA and/or kV adjustment per patient size (includes targeted exams where dose is matched to clinical indication); or iterative reconstruction. Contrast material: OMNI 350; Contrast volume: 100 ml; Contrast route: INTRAVENOUS (IV); COMPARISON: CT chest w con* [id number] 04/13/2023 9:23 AM RADIATION DOSE METRICS: Total DLP (mGy-cm): 788.52 FINDINGS: Tubes, catheters and devices: Left infusion port catheter with tip in the SVC. Thyroid: The visualized thyroid gland is normal. Trachea: The airways are patent. Lungs: There are multiple punctate pulmonary parenchymal calcifications, consistent with remote granulomatous organism exposure. Linear atelectasis in the right lower lobe. No acute interstitial or airspace disease. There are no pulmonary nodules. Pleural spaces: No pleural effusions or pneumothorax. Heart: Heart is of normal size and morphology. No pericardial thickening or effusion. No filling defects in the left atrial appendage. Mediastinal space: The mediastinal contour is normal. Lymph nodes: There is no evidence of lymphadenopathy. Vasculature: The aorta is normal in course and caliber. The pulmonary arteries are normal in course and caliber. Bones/joints: Stable 2 cm nonaggressive lytic lesion in the manubrium with internal osseous septations, resembling a hemangioma. Stable 9 mm sclerotic focus in the T1 vertebra, likely a bone island. Stable 9 mm sclerotic focus in the T2 vertebra, also favoring a bone island. Mild multilevel degenerative changes of the spine, as manifested by multilevel anterior osteophytes and multilevel decrease in intervertebral disc space. No acute fracture, dislocation, or aggressive osseous lesion. Soft tissues: No acute body wall soft tissue findings. Other findings: Right hilar calcified granulomas, of no concern. COMMENTS: Please review abdomen and pelvic CT performed on the same date for other findings. PROCEDURE INFORMATION: Exam: CT Abdomen And Pelvis With Contrast Exam date and time: 08/09/2023 3:34 PM Age: 57 years old Clinical indication: Condition or disease; Other: Follow up cancer; Prior surgery; Surgery date: 6+ months; Surgery type: Colorectal surgery, port; Additional info: Rectal cancer, please schedule on 08/15/23 with his appointment for TECHNIQUE: Imaging protocol: Computed tomography of the abdomen and pelvis with contrast. Radiation optimization: All CT scans at this facility use at least one of these dose optimization techniques: automated exposure control; mA and/or kV adjustment per patient size (includes targeted exams where dose is matched to clinical indication); or iterative reconstruction. Contrast material: OMNI 350; Contrast volume: 100 ml; Contrast route: INTRAVENOUS (IV); COMPARISON: MR pelvis wo/w con [id number] 04/13/2023 7:26 AM RADIATION DOSE METRICS: Total DLP (mGy-cm): 788.52 FINDINGS: Liver: New 7.5 cm by 6.4 cm x 5 cm hypodense peripherally enhancing lesion in the right hepatic lobe. At least 3 other hypodense foci are identified in the liver. There is a diffuse decrease in hepatic parenchymal density, consistent with fatty infiltration. The liver is otherwise unremarkable. Gallbladder and bile ducts: The gallbladder is contracted. There is no evidence of biliary ductal dilation. Pancreas: The pancreas is normal. Spleen: The spleen demonstrates punctate calcifications, consistent with remote granulomatous organism exposure. Spleen is enlarged measuring 14 cm in length. The spleen is otherwise unremarkable. Adrenal glands: The adrenal glands are normal. Kidneys and ureters: The kidneys are normal. There is no ureteral dilation. Stomach and bowel: Yao pouch is present. Left lower quadrant colostomy without complications. Moderate constipation. No bowel obstruction or significant bowel wall thickening. Multiple small bowel loops appear to be adhesed to the ventral abdominal wall. Appendix: Appendix is not confidently seen. Intraperitoneal space: Enhancing nodularity and thickening throughout the peritoneal reflections. For example long segment nodular enhancement in the left paracolic gutter measuring 1.8 cm by 1.4 cm, extending into the bandlike mass at the level of the pelvis. Another example, a 8 mm enhancing peritoneal nodule in the right lateral conal fascia. Another example, mild enhancing thickening of about 7 mm involving the right anterior renal fascia at Mcfarlane's pouch. A last example, extensive peritoneal and omental thickening in the right perisplenic space. Trace upper abdominal ascites. There is no free intraperitoneal air. Vasculature: No aortic aneurysms. Portal venous system is patent. Lymph nodes: There is no evidence of lymphadenopathy. Urinary bladder: The bladder is decompressed. Reproductive: Unremarkable as visualized. Bones/joints: Mild multilevel degenerative changes of the spine, as manifested by multilevel anterior osteophytes and multilevel decrease in intervertebral disc space. No acute fracture, dislocation, or aggressive osseous lesion. Soft tissues: Extensive skin thickening and mild enhancement throughout the ventral abdominal wall midline, measuring up to 1.7 cm in thickness. Other findings: New 6 cm x 6.3 cm masslike and bandlike thickening at the pelvis (surgical bed) with surrounding fat stranding. CT/CT chest abdpel w/*[id number] IMPRESSION: 1. Stable 2 cm nonaggressive lytic lesion in the manubrium with internal osseous septations, resembling a hemangioma. 2. No definitive evidence for thoracic neoplastic disease or metastasis. IMPRESSION: 1. New 7.5 cm by 6.4 cm x 5 cm hypodense peripherally enhancing lesion in the right hepatic lobe. This is most compatible with a hepatic metastasis. 2. At least 3 other hypodense foci are identified in the liver. Too small to characterize, but raising concern for smaller metastatic deposits as well. 3. Overall peritoneal findings are highly concerning for worsening peritoneal carcinomatosis as compared with prior. 4. Extensive skin thickening and mild enhancement throughout the ventral abdominal wall midline, measuring up to 1.7 cm in thickness. Differential would include postsurgical changes/scarring versus infiltrative/metastatic seeding. 5. New 6 cm x 6.3 cm masslike and bandlike thickening at the pelvis (surgical bed) with surrounding fat stranding. Differential would include: Postsurgical scarring/adhesions versus disease recurrence/metastasis. 6. Hepatic steatosis. 7. Splenomegaly. 8. Incidental findings as above. COMMENTS: Please review chest CT performed concomitantly for other important findings.
== END 2023-08-09 14:19 | disposition home or self-care (01) ==
PROVIDERS: PCP Clinical Nurse Specialist Adult Health; Visit Provider Internal Medicine Medical Oncology
DX: C20 Malignant neoplasm of rectum (principal); J98.4 Other disorders of lung; J98.11 Atelectasis; M89.9 Disorder of bone, unspecified; M89.8X8 Other specified disorders of bone, other site; M47.9 Spondylosis, unspecified; K76.9 Liver disease, unspecified; K76.89 Other specified diseases of liver; D73.89 Other diseases of spleen; R16.1 Splenomegaly, not elsewhere classified; K59.00 Constipation, unspecified; K66.8 Other specified disorders of peritoneum; M25.78 Osteophyte, vertebrae; L98.8 Other specified disorders of the skin and subcutaneous tissue; R93.89 Abnormal findings on diagnostic imaging of other specified body structures
CPT/HCPCS: 71260; 74177; Q9967

== ENCOUNTER 2023-08-15 12:00 | Oncology outpatient (recurring) (ONCR) | payer BC, SELFPAY ==
[2023-08-09 15:50] VITALS: BP 132/75; PULSE 84; RESP 15; TEMP 36.6; O2SAT 98
[2023-08-15 12:09] LABS: Basophils # 0.1 10^3/uL (0.0-0.1); Basophils % 0.6 %; Eosinophils # 0.2 10^3/uL (0.0-0.8); Eosinophils % 2.7 %; Lymphocytes # 1.2 10^3/uL (0.8-4.8); Lymphocytes % 15.9 %; Mean Corpuscular Hemoglobin 23.2 pg (27-33); Mean Corpuscular Volume 77.3 fl (82-101); Mean Platelet Volume 9.6 fL (7.4-10.4); Monocytes # 0.5 10^3/uL (0.2-0.9); Monocytes % 6.6 %; Neutrophils # 5.71 10^3/uL (1.8-7.7); Neutrophils % 73.8 %; Nucleated Red Blood Cells % 0 %; Platelet Count 292 10^3/cmm (157-399); Red Blood Count 4.66 10^6/uL (3.85-5.65); Red Cell Distribution Width 17.6 % (12.1-15.1); White Blood Count 7.74 10^3/uL (3.29-11.43)
[2023-08-15 12:34] LABS: Carcinoembryonic Antigen 3.9 ng/mL (0.0-4.7)
[2023-08-15 12:46] LABS: Alanine Aminotransferase 13 U/L (0-41); Albumin Level 3.6 g/dL (3.5-5.2); Alkaline Phosphatase 125 U/L (40-130); Anion Gap 14.6 (5-19); Aspartate Amino Transferase 22 U/L (0-40); Blood Urea Nitrogen 15 mg/dL (6-20); Calcium 8.7 mg/dL (8.5-10.5); Carbon Dioxide 27 mmol/L (22-29); Chloride 104 mmol/L (98-107); Globulin 3.7 g/dL (1.3-4.6); Glomerular Filtration Rate 87.3 mL/min (90-130); Glucose 99 mg/dL (65-115); Osmolality Calculated 293 mOsm/kg (285-295); Potassium 4.6 mmol/L (3.5-5.1); Sodium 141 mmol/L (136-145); Total Bilirubin 0.6 mg/dL (0.15-1.2); Total Protein 7.3 g/dL (6.6-8.7)
== END 2023-08-18 23:59 | disposition home or self-care (01) ==
PROVIDERS: PCP Clinical Nurse Specialist Adult Health; Visit Provider Internal Medicine Medical Oncology
DX: C20 Malignant neoplasm of rectum; Z53.9 Procedure and treatment not carried out, unspecified reason; D50.0 Iron deficiency anemia secondary to blood loss (chronic)
CPT/HCPCS: 36591; 80053; 82378; 85025

== ENCOUNTER 2023-08-22 10:23 | Outpatient (CLI) | payer BC, SELFPAY ==
--- NOTE | 2023-08-22 10:30 | PETR_ITS ---
PROCEDURE INFORMATION: Exam: PET/CT Skull Base to Mid-thigh Exam date and time: 08/22/2023 11:12 AM Age: 57 years old Clinical indication: Condition or disease; Primary cancer: Colon cancer; Prior surgery; Surgery date: 6+ months; Surgery type: --colorectal, port; Additional info: Restaging colon cancer LABS AND CLINICAL REPORTS: Glucose: 109 mg/dl Treatment strategy for malignancy (PET staging): Restaging (PS) TECHNIQUE: Imaging protocol: Following at least four-hour fasting and following the injection of radiopharmaceutical, low dose CT images were obtained. Then, PET images were obtained. Attenuation corrected images were constructed using the CT scan. Fused images of PET and CT were reviewed. The standardized uptake values (SUV) reported below are maximum values within a region of interest, expressed in gm/ml. Exam includes orbital meatal line to mid-thigh. Radiopharmaceutical: 12.65 mCi F-18 FDG (Fluorodeoxyglucose), IV. Time of imaging post radiopharmaceutical administration: 1 hour Injection site: Left antecubital the COMPARISON: CT chest abdpel w/*[id number] 08/09/2023 3:34 PM, MRI pelvis 04/13/2023 FINDINGS: Tubes, catheters and devices: A left subclavian central venous port catheter terminates at the distal SVC/right atrial junction. Brain: Visualized brain has normal physiologic uptake. Pharynx: No abnormal uptake. Larynx: No abnormal uptake. Lungs, pleura and trachea: No abnormal uptake. Right upper lobe calcified granulomas are noted. Heart: Normal physiologic uptake. Mediastinal space: No abnormal uptake. Liver: An ill-defined region of hypodensity in the posterior right liver lobe measuring approximately 6.4 cm in diameter on series 3, image 116 demonstrates elevated uptake, SUV max 13.4. An additional region of uptake within the inferior medial right liver lobe is noted without a definite correlating lesion on the CT images, SUV max 8.7 on image 131. Gallbladder and bile ducts: No abnormal uptake. Pancreas: No abnormal uptake. Spleen: Elevated uptake in the lateral aspect of the splenic capsule without a well-defined lesion on the CT images is noted, SUV max 4.2 on series 3, image 114. A soft tissue density nodular focus medial to the inferior spleen is noted measuring 1.2 cm in diameter on series 3, image 139, SUV max 2.8. Calcified granulomas in the spleen are present. Adrenal glands: No abnormal uptake. Kidneys and ureters: Normal physiologic uptake. Stomach and bowel: A left lower quadrant colostomy site is noted with probable physiologic or inflammatory uptake in the ostomy site. A surgical staple line in the region of the sigmoid colon is noted. Vasculature: No abnormal uptake. Lymph nodes: No abnormal uptake. No lymphadenopathy in the head, neck, chest, abdomen, pelvis, and extremities. Small benign-appearing calcified right hilar lymph nodes are present. Skeleton: A non radiotracer avid region of lucency in the manubrium on the right is noted measuring 1.5 x 1.3 cm. Soft tissues: Low-level uptake in a region of streaky density in the region of the rectus abdominis muscular sheath in the superior to mid abdomen is noted on series 3, image 139, SUV max 2.4. A region of ovoid soft tissue density which appears to be separate from the descending colon in the left abdomen on series 3 image 156 measuring approximately 1.4 x 1.0 cm is present, SUV max 4.3. There is similar bandlike soft tissue density extending from the region of postoperative scarring in the mid to inferior abdominal wall in the region of the rectus abdominis muscular sheath into the anterior pelvis terminating slightly superior to the level of the sigmoid colon staple line between images 161 through 199 is noted with elevated uptake, SUV max 10.1 for example on series 3, image 187. Within the pelvis this region of ill-defined soft tissue density measures up to approximately 4.0 x 3.0 cm on series 3, image 195. The degree of soft tissue density in the region of the rectus abdominis muscular sheath in the region of previous surgery measures up to 6.6 x 1.9 cm on series 3, image 174. A small focus of radiotracer avid soft tissue density anterior to the left psoas muscle is noted measuring 1.8 x 1.0 cm in the pelvis on series 3, image 182, SUV max 5.3. METRICS: Mediastinal blood pool: SUV max 1.7 PET/PET skulltothi SUBSEQ [id number] IMPRESSION: 1. Two regions of abnormal uptake within the liver are noted consistent with metastases. 2. Abnormal uptake is identified within soft tissue density in the region of the previous operative site centered in the region of the mid to inferior abdomen extending inferiorly and posteriorly into the pelvis, terminating slightly superior to the surgical staple line within the sigmoid colon is noted (SUV max 10.1). Although this may represent inflammatory uptake in a region of scarring related to the previous surgery, the degree of uptake is concerning for possible malignancy. 3. Mild uptake within the more superior to mid abdominal rectus abdominis sheath is likely inflammatory. 4. Small foci of elevated uptake lateral and medial to the spleen and anterior to the psoas muscle in the pelvis are noted, concerning for peritoneal carcinomatosis. 5. A non radiotracer avid lucent lesion in the manubrium is noted compatible with a benign finding. 6. Additional nonurgent findings as detailed above.
== END 2023-08-22 10:24 | disposition home or self-care (01) ==
LOC: RAD 10:23
PROVIDERS: PCP Clinical Nurse Specialist Adult Health; Visit Provider Internal Medicine Medical Oncology
DX: C20 Malignant neoplasm of rectum (principal); R93.2 Abnormal findings on diagnostic imaging of liver and biliary tract; R93.89 Abnormal findings on diagnostic imaging of other specified body structures; Z90.49 Acquired absence of other specified parts of digestive tract; Z95.9 Presence of cardiac and vascular implant and graft, unspecified; K76.89 Other specified diseases of liver; R93.5 Abnormal findings on diagnostic imaging of other abdominal regions, including retroperitoneum
CPT/HCPCS: 78815; A9552

== ENCOUNTER 2023-11-10 11:15 | Oncology outpatient (recurring) (ONCR) | payer BC, SELFPAY ==
[2023-10-25 07:57] LABS: Basophils % 0.4 %; Eosinophils # 0.2 10^3/uL (0.0-0.8); Eosinophils % 4.4 %; Hematocrit 36.1 % (37-53); Lymphocytes # 1.1 10^3/uL (0.8-4.8); Lymphocytes % 21.6 %; Mean Corpuscular HGB Conc 30.7 g/dL (30-55); Mean Corpuscular Hemoglobin 22.8 pg (27-33); Mean Corpuscular Volume 74.3 fl (82-101); Mean Platelet Volume 10.6 fL (7.4-10.4); Monocytes # 0.4 10^3/uL (0.2-0.9); Monocytes % 7.3 %; Neutrophils # 3.47 10^3/uL (1.8-7.7); Neutrophils % 66.1 %; Nucleated Red Blood Cells % 0 %; Platelet Count 261 10^3/cmm (157-399); Red Blood Count 4.86 10^6/uL (3.85-5.65); Red Cell Distribution Width 16.8 % (12.1-15.1); White Blood Count 5.24 10^3/uL (3.29-11.43)
[2023-10-25 08:24] LABS: Carcinoembryonic Antigen 14.1 ng/mL (0.0-4.7)
[2023-10-25 08:35] LABS: Alanine Aminotransferase 33 U/L (0-41); Albumin Level 3.3 g/dL (3.5-5.2); Alkaline Phosphatase 137 U/L (40-130); Anion Gap 15.9 (5-19); Aspartate Amino Transferase 36 U/L (0-40); Blood Urea Nitrogen 10 mg/dL (6-20); Calcium 8.4 mg/dL (8.5-10.5); Carbon Dioxide 22 mmol/L (22-29); Chloride 107 mmol/L (98-107); Creatinine Clr Calc Pharmacy 76.8348; Globulin 3.7 g/dL (1.3-4.6); Glomerular Filtration Rate 77.3 mL/min (90-130); Glucose 93 mg/dL (65-115); Osmolality Calculated 291 mOsm/kg (285-295); Potassium 3.9 mmol/L (3.5-5.1); Sodium 141 mmol/L (136-145); Total Bilirubin 0.5 mg/dL (0.15-1.2)
[2023-10-25 09:10] VITALS: BP 115/70; PULSE 51; RESP 16; TEMP 36.3; O2SAT 98
[2023-10-25] MEDS: sodium chloride 0.9% 250 ML 75 ML IV (09:22)
[2023-10-25] MEDS: acetaminophen 325 mg Tablet 650 MG PO (09:22)
[2023-10-25] MEDS: diphenhydrAMINE 50 mg/mL SDV 1mL 25 MG IVP (09:22)
[2023-10-25] MEDS: palonosetron 0.25 mg/5 mL SDV IVP (09:23)
[2023-10-25] MEDS: dexamethasone 4 mg/mL INJ 5 mL 12 MG IVP (09:24)
--- NOTE | 2023-10-25 09:37 | PC.NURSE ---
Patient ordered to receive Tylenol 650 mg PO prior to chemotherapy treatment. Patient had difficulty swallowing first tablet and refused the second tablet. Patient received total Tylenol dose of 325 mg PO.
[2023-10-25] MEDS: PANITUMUMAB IV (09:54)
[2023-10-25] MEDS: SODIUM CHLORIDE 0.9% IV (09:54)
[2023-10-25] MEDS: atropine 1 mg/mL SDV 1 mL 0.4 MG IV (10:58)
[2023-10-25] MEDS: irinotecan 300 MG in dextrose 5% 250 ML 176.67 MG IV (11:10)
[2023-10-25] MEDS: leucovorin 720 MG in dextrose 5% 250 ML 166.67 MG IV (11:11)
[2023-10-25] MEDS: fluorouraciL 4,300 MG, elastomeric pump 1 PUMP in sodium chloride 0.9% (100 ml) 6 ML IV (12:51)
[2023-10-25 12:53] VITALS: BP 109/65; PULSE 51; RESP 16; TEMP 36.4; O2SAT 98
[2023-10-27 10:57] VITALS: BP 98/62; PULSE 48; RESP 17; TEMP 36.3; O2SAT 98
[2023-11-03 09:39] LABS: Basophils % 0.4 %; Eosinophils # 0.1 10^3/uL (0.0-0.8); Eosinophils % 2.2 %; Hematocrit 39.5 % (37-53); Lymphocytes # 0.8 10^3/uL (0.8-4.8); Mean Corpuscular HGB Conc 30.1 g/dL (30-55); Mean Corpuscular Hemoglobin 22.2 pg (27-33); Mean Corpuscular Volume 73.6 fl (82-101); Mean Platelet Volume 9.4 fL (7.4-10.4); Monocytes # 0.2 10^3/uL (0.2-0.9); Monocytes % 3.7 %; Neutrophils # 3.76 10^3/uL (1.8-7.7); Neutrophils % 76.3 %; Nucleated Red Blood Cells % 0 %; Platelet Count 280 10^3/cmm (157-399); Red Blood Count 5.37 10^6/uL (3.85-5.65); Red Cell Distribution Width 17.5 % (12.1-15.1); White Blood Count 4.93 10^3/uL (3.29-11.43)
[2023-11-03 10:00] LABS: Alanine Aminotransferase 19 U/L (0-41); Albumin Level 3.7 g/dL (3.5-5.2); Alkaline Phosphatase 134 U/L (40-130); Aspartate Amino Transferase 17 U/L (0-40); Blood Urea Nitrogen 12 mg/dL (6-20); Calcium 8.9 mg/dL (8.5-10.5); Carbon Dioxide 27 mmol/L (22-29); Chloride 101 mmol/L (98-107); Creatinine Clr Calc Pharmacy 76.8348; Globulin 3.3 g/dL (1.3-4.6); Glomerular Filtration Rate 77.3 mL/min (90-130); Glucose 98 mg/dL (65-115); Osmolality Calculated 284 mOsm/kg (285-295); Sodium 137 mmol/L (136-145); Total Bilirubin 0.6 mg/dL (0.15-1.2)
[2023-11-08 12:27] LABS: Basophils % 0.5 %; Eosinophils # 0.2 10^3/uL (0.0-0.8); Eosinophils % 2.5 %; Hematocrit 37.9 % (37-53); Lymphocytes # 1.2 10^3/uL (0.8-4.8); Lymphocytes % 19.3 %; Mean Corpuscular HGB Conc 30.1 g/dL (30-55); Mean Corpuscular Hemoglobin 22.6 pg (27-33); Mean Platelet Volume 10.3 fL (7.4-10.4); Monocytes # 0.4 10^3/uL (0.2-0.9); Monocytes % 7.3 %; Neutrophils # 4.21 10^3/uL (1.8-7.7); Neutrophils % 70.1 %; Nucleated Red Blood Cells % 0 %; Platelet Count 301 10^3/cmm (157-399); Red Blood Count 5.05 10^6/uL (3.85-5.65); White Blood Count 6.01 10^3/uL (3.29-11.43)
[2023-11-08 12:45] LABS: Alanine Aminotransferase 16 U/L (0-41); Albumin Level 3.5 g/dL (3.5-5.2); Alkaline Phosphatase 128 U/L (40-130); Anion Gap 13.4 (5-19); Aspartate Amino Transferase 16 U/L (0-40); Blood Urea Nitrogen 8 mg/dL (6-20); Calcium 8.2 mg/dL (8.5-10.5); Carbon Dioxide 25 mmol/L (22-29); Chloride 105 mmol/L (98-107); Creatinine Clr Calc Pharmacy 94.2906; Globulin 3.1 g/dL (1.3-4.6); Glucose 120 mg/dL (65-115); Osmolality Calculated 290 mOsm/kg (285-295); Potassium 3.4 mmol/L (3.5-5.1); Sodium 140 mmol/L (136-145); Total Bilirubin 0.6 mg/dL (0.15-1.2); Total Protein 6.6 g/dL (6.6-8.7)
[2023-11-08 13:10] VITALS: BP 112/65; PULSE 52; RESP 16; TEMP 36.8; O2SAT 96
[2023-11-08] MEDS: sodium chloride 0.9% 250 ML 75 ML IV (13:58)
[2023-11-08] MEDS: palonosetron 0.25 mg/5 mL SDV IVP (13:59)
[2023-11-08] MEDS: dexamethasone 4 mg/mL INJ 5 mL 12 MG IVP (14:01)
[2023-11-08] MEDS: diphenhydrAMINE 50 mg/mL SDV 1mL 25 MG IVP (14:03)
--- NOTE | 2023-11-08 14:06 | PC.NURSE ---
patient declined tylenol due to not being able to swallow pills
[2023-11-08] MEDS: atropine 1 mg/mL SDV 1 mL 0.4 MG IV (14:28)
[2023-11-08] MEDS: leucovorin 720 MG in dextrose 5% 250 ML 166.67 MG IV (14:44)
[2023-11-08] MEDS: irinotecan 300 MG in dextrose 5% 250 ML 176.67 MG IV (14:44)
[2023-11-08] MEDS: fluorouraciL 4,300 MG, elastomeric pump 1 PUMP in sodium chloride 0.9% (100 ml) 6 ML IV (16:28)
[2023-11-08 16:50] VITALS: BP 123/72; PULSE 50; RESP 17; TEMP 36.2; O2SAT 97
[2023-11-10 11:10] VITALS: BP 101/49; PULSE 52; RESP 16; TEMP 36.7; O2SAT 99
== END 2023-11-18 23:59 | disposition home or self-care (01) ==
PROVIDERS: Nurse Practitioner Family; PCP Clinical Nurse Specialist Adult Health; Visit Provider Internal Medicine Medical Oncology
DX: Z45.1 Encounter for adjustment and management of infusion pump (principal); Z53.9 Procedure and treatment not carried out, unspecified reason
CPT/HCPCS: 36415; 80053; 82378; 85025; 96368; 96375; 96413; 96415; 96416; 96417; 96523; A4222; J0461; J0640; J1100; J1200; J2469; J7050; J7060; J9190; J9206; J9303

== ENCOUNTER 2023-12-08 11:00 | Oncology outpatient (recurring) (ONCR) | payer BC, SELFPAY ==
[2023-11-22 08:38] LABS: Basophils % 0.4 %; Eosinophils # 0.1 10^3/uL (0.0-0.8); Eosinophils % 1.7 %; Hematocrit 31.1 % (37-53); Lymphocytes # 0.7 10^3/uL (0.8-4.8); Lymphocytes % 13.6 %; Mean Corpuscular HGB Conc 30.2 g/dL (30-55); Mean Corpuscular Hemoglobin 22.4 pg (27-33); Mean Platelet Volume 9.9 fL (7.4-10.4); Monocytes # 0.5 10^3/uL (0.2-0.9); Monocytes % 9.4 %; Neutrophils # 4.08 10^3/uL (1.8-7.7); Neutrophils % 74.7 %; Nucleated Red Blood Cells % 0 %; Platelet Count 205 10^3/cmm (157-399); Red Cell Distribution Width 19.6 % (12.1-15.1); White Blood Count 5.45 10^3/uL (3.29-11.43)
[2023-11-22 08:56] LABS: Alanine Aminotransferase 25 U/L (0-41); Albumin Level 3.2 g/dL (3.5-5.2); Alkaline Phosphatase 118 U/L (40-130); Anion Gap 15.9 (5-19); Aspartate Amino Transferase 25 U/L (0-40); Blood Urea Nitrogen 9 mg/dL (6-20); Calcium 8.2 mg/dL (8.5-10.5); Carbon Dioxide 22 mmol/L (22-29); Chloride 105 mmol/L (98-107); Glomerular Filtration Rate 87.3 mL/min (90-130); Glucose 100 mg/dL (65-115); Osmolality Calculated 287 mOsm/kg (285-295); Potassium 3.9 mmol/L (3.5-5.1); Sodium 139 mmol/L (136-145); Total Bilirubin 1.2 mg/dL (0.15-1.2); Total Protein 6.2 g/dL (6.6-8.7)
[2023-11-22] MEDS: sodium chloride 0.9% 250 ML 75 ML IV (10:18)
[2023-11-22] MEDS: dexamethasone 4 mg/mL INJ 5 mL 12 MG IVP (10:19)
[2023-11-22] MEDS: palonosetron 0.25 mg/5 mL SDV IVP (10:22)
[2023-11-22] MEDS: diphenhydrAMINE 50 mg/mL SDV 1mL 25 MG IVP (10:24)
[2023-11-22] MEDS: PANITUMUMAB IV (10:41)
[2023-11-22] MEDS: SODIUM CHLORIDE 0.9% IV (10:41)
[2023-11-22] MEDS: atropine 1 mg/mL SDV 1 mL 0.4 MG IV (11:51)
[2023-11-22] MEDS: dextrose 5% 250 ML 75 ML IV (11:52)
[2023-11-22] MEDS: irinotecan 300 MG in dextrose 5% 250 ML 176.67 MG IV (11:59)
[2023-11-22] MEDS: leucovorin 720 MG in dextrose 5% 250 ML 166.67 MG IV (12:00)
[2023-11-22 12:36] LABS: Ferritin 314 ng/mL (30-400); Iron 26 ug/dL (59-158); Percent Saturation 21.3 % (20-50); Total Iron Binding Capacity 122 mcg/dl; Unsaturated Iron Binding 96 ug/dL (112-347)
[2023-11-22 13:32] VITALS: BP 98/64; PULSE 48; RESP 18; TEMP 36.6; O2SAT 98
[2023-11-22] MEDS: fluorouraciL 4,300 MG, elastomeric pump 1 PUMP in sodium chloride 0.9% (100 ml) 6 ML IV (13:33)
[2023-12-06 09:23] LABS: Basophils % 0.3 %; Eosinophils # 0.1 10^3/uL (0.0-0.8); Eosinophils % 1.3 %; Hematocrit 44.7 % (37-53); Lymphocytes # 1.1 10^3/uL (0.8-4.8); Lymphocytes % 18.6 %; Mean Corpuscular HGB Conc 30.6 g/dL (30-55); Mean Corpuscular Hemoglobin 23.2 pg (27-33); Mean Corpuscular Volume 75.6 fl (82-101); Mean Platelet Volume 9.6 fL (7.4-10.4); Monocytes # 0.5 10^3/uL (0.2-0.9); Monocytes % 9.1 %; Neutrophils # 4.18 10^3/uL (1.8-7.7); Neutrophils % 70.2 %; Nucleated Red Blood Cells % 0 %; Platelet Count 298 10^3/cmm (157-399); Red Blood Count 5.91 10^6/uL (3.85-5.65); Red Cell Distribution Width 22.5 % (12.1-15.1); White Blood Count 5.96 10^3/uL (3.29-11.43)
[2023-12-06 10:42] LABS: Carcinoembryonic Antigen 2.3 ng/mL (0.0-4.7)
[2023-12-06 10:53] LABS: Alanine Aminotransferase 21 U/L (0-41); Albumin Level 3.9 g/dL (3.5-5.2); Alkaline Phosphatase 106 U/L (40-130); Anion Gap 19.6 (5-19); Aspartate Amino Transferase 19 U/L (0-40); Blood Urea Nitrogen 25 mg/dL (6-20); Calcium 9.1 mg/dL (8.5-10.5); Carbon Dioxide 20 mmol/L (22-29); Chloride 99 mmol/L (98-107); Globulin 3.3 g/dL (1.3-4.6); Glomerular Filtration Rate 52.4 mL/min (90-130); Glucose 120 mg/dL (65-115); Osmolality Calculated 286 mOsm/kg (285-295); Potassium 3.6 mmol/L (3.5-5.1); Sodium 135 mmol/L (136-145); Total Bilirubin 0.8 mg/dL (0.15-1.2); Total Protein 7.2 g/dL (6.6-8.7)
[2023-12-06] MEDS: sodium chloride 0.9% 250 ML 75 ML IV (11:07)
[2023-12-06] MEDS: diphenhydrAMINE 50 mg/mL SDV 1mL 25 MG IVP (11:08)
[2023-12-06] MEDS: palonosetron 0.25 mg/5 mL SDV IVP (11:11)
[2023-12-06] MEDS: dexamethasone 4 mg/mL INJ 5 mL 12 MG IVP (11:15)
[2023-12-06] MEDS: PANITUMUMAB IV (11:31)
[2023-12-06] MEDS: SODIUM CHLORIDE 0.9% IV (11:31)
[2023-12-06] MEDS: atropine 1 mg/mL SDV 1 mL 0.4 MG IV (12:43)
[2023-12-06] MEDS: irinotecan 300 MG in dextrose 5% 250 ML 176.67 MG IV (12:46)
[2023-12-06] MEDS: leucovorin 700 MG in dextrose 5% 250 ML 166.67 MG IV (12:47)
[2023-12-06] MEDS: fluorouraciL 4,200 MG, elastomeric pump 1 PUMP in sodium chloride 0.9% (100 ml) 8 ML IV (15:16)
[2023-12-06 15:25] VITALS: BP 111/69; PULSE 56; RESP 16; TEMP 36.6; O2SAT 99
== END 2023-12-18 23:59 | disposition home or self-care (01) ==
PROVIDERS: Nurse Practitioner Family; PCP Clinical Nurse Specialist Adult Health; Visit Provider Internal Medicine Medical Oncology
DX: Z53.9 Procedure and treatment not carried out, unspecified reason (principal); Z45.1 Encounter for adjustment and management of infusion pump
CPT/HCPCS: 80053; 82378; 82728; 83540; 83550; 85025; 96365; 96366; 96368; 96375; 96413; 96415; 96416; 96417; 96523; A4222; J0461; J0640; J1100; J1200; J2469; J7050; J7060; J9190; J9206; J9303

== ENCOUNTER 2024-01-05 11:00 | Oncology outpatient (recurring) (ONCR) | payer BC, SELFPAY ==
[2023-12-20 10:17] LABS: Basophils % 0.6 %; Eosinophils % 0.6 %; Hematocrit 37.8 % (37-53); Lymphocytes % 20.4 %; Mean Corpuscular HGB Conc 31.5 g/dL (30-55); Mean Corpuscular Hemoglobin 23.6 pg (27-33); Mean Corpuscular Volume 74.9 fl (82-101); Mean Platelet Volume 10.3 fL (7.4-10.4); Monocytes # 0.4 10^3/uL (0.2-0.9); Monocytes % 8.5 %; Neutrophils # 3.32 10^3/uL (1.8-7.7); Neutrophils % 69.3 %; Nucleated Red Blood Cells % 0 %; Platelet Count 299 10^3/cmm (157-399); Red Blood Count 5.05 10^6/uL (3.85-5.65); Red Cell Distribution Width 21.7 % (12.1-15.1)
[2023-12-20 10:36] LABS: Alanine Aminotransferase 34 U/L (0-41); Albumin Level 3.8 g/dL (3.5-5.2); Alkaline Phosphatase 132 U/L (40-130); Anion Gap 12.6 (5-19); Aspartate Amino Transferase 22 U/L (0-40); Blood Urea Nitrogen 20 mg/dL (6-20); Calcium 8.7 mg/dL (8.5-10.5); Carbon Dioxide 27 mmol/L (22-29); Chloride 104 mmol/L (98-107); Globulin 2.6 g/dL (1.3-4.6); Glomerular Filtration Rate 69.2 mL/min (90-130); Glucose 136 mg/dL (65-115); Osmolality Calculated 295 mOsm/kg (285-295); Potassium 3.6 mmol/L (3.5-5.1); Sodium 140 mmol/L (136-145); Total Bilirubin 0.5 mg/dL (0.15-1.2); Total Protein 6.4 g/dL (6.6-8.7)
[2023-12-20 12:08] VITALS: BMI 22.6
[2023-12-20] MEDS: dexamethasone 4 mg/mL INJ 5 mL 12 MG IVP (12:29)
[2023-12-20] MEDS: sodium chloride 0.9% 250 ML 75 ML IV (12:29)
[2023-12-20] MEDS: palonosetron 0.25 mg/5 mL SDV IVP (12:32)
[2023-12-20] MEDS: diphenhydrAMINE 50 mg/mL SDV 1mL 25 MG IVP (12:33)
[2023-12-20] MEDS: PANITUMUMAB IV (12:55)
[2023-12-20] MEDS: SODIUM CHLORIDE 0.9% IV (12:55)
[2023-12-20 13:00] VITALS: BP 113/64; PULSE 79; RESP 16; TEMP 37.1; O2SAT 98
[2023-12-20] MEDS: atropine 1 mg/mL SDV 1 mL 0.4 MG IV (14:00)
[2023-12-20] MEDS: irinotecan 300 MG, irinotecan 20 MG in dextrose 5% 250 ML 177.33 MG IV (14:15)
[2023-12-20] MEDS: leucovorin 720 MG in dextrose 5% 250 ML 166.67 MG IV (14:16)
[2023-12-20] MEDS: fluorouraciL 4,300 MG, elastomeric pump 1 PUMP in sodium chloride 0.9% (100 ml) 6 ML IV (16:07)
[2023-12-20 16:10] VITALS: BP 123/65; PULSE 54; TEMP 35.8; O2SAT 99
[2024-01-03 10:31] LABS: Basophils % 0.5 %; Eosinophils # 0.1 10^3/uL (0.0-0.8); Eosinophils % 1.8 %; Hematocrit 36.2 % (37-53); Lymphocytes # 0.9 10^3/uL (0.8-4.8); Lymphocytes % 14.2 %; Mean Corpuscular HGB Conc 29.8 g/dL (30-55); Mean Corpuscular Hemoglobin 23.6 pg (27-33); Mean Corpuscular Volume 79.2 fl (82-101); Mean Platelet Volume 9.4 fL (7.4-10.4); Monocytes # 0.6 10^3/uL (0.2-0.9); Monocytes % 10.1 %; Neutrophils # 4.43 10^3/uL (1.8-7.7); Neutrophils % 72.4 %; Nucleated Red Blood Cells % 0 %; Platelet Count 222 10^3/cmm (157-399); Red Blood Count 4.57 10^6/uL (3.85-5.65); Red Cell Distribution Width 23.8 % (12.1-15.1); White Blood Count 6.12 10^3/uL (3.29-11.43)
[2024-01-03 11:09] LABS: Alanine Aminotransferase 21 U/L (0-41); Albumin Level 3.4 g/dL (3.5-5.2); Alkaline Phosphatase 94 U/L (40-130); Anion Gap 12.7 (5-19); Aspartate Amino Transferase 13 U/L (0-40); Blood Urea Nitrogen 12 mg/dL (6-20); Calcium 8.1 mg/dL (8.5-10.5); Carbon Dioxide 26 mmol/L (22-29); Chloride 107 mmol/L (98-107); Creatinine Clr Calc Pharmacy 84.1231; Globulin 2.2 g/dL (1.3-4.6); Glucose 80 mg/dL (65-115); Lactate Dehydrogenase 191 U/L (135-225); Magnesium 1.7 mg/dL (1.7-2.3); Osmolality Calculated 293 mOsm/kg (285-295); Potassium 3.7 mmol/L (3.5-5.1); Sodium 142 mmol/L (136-145); Total Bilirubin 0.6 mg/dL (0.15-1.2); Total Protein 5.6 g/dL (6.6-8.7)
[2024-01-03] MEDS: sodium chloride 0.9% 250 ML 75 ML IV (11:50)
[2024-01-03] MEDS: dexamethasone 4 mg/mL INJ 5 mL 12 MG IVP (11:53)
[2024-01-03] MEDS: palonosetron 0.25 mg/5 mL SDV IVP (11:58)
[2024-01-03] MEDS: diphenhydrAMINE 50 mg/mL SDV 1mL 25 MG IVP (12:03)
[2024-01-03] MEDS: PANITUMUMAB IV (12:16)
[2024-01-03] MEDS: SODIUM CHLORIDE 0.9% IV (12:16)
[2024-01-03] MEDS: atropine 1 mg/mL SDV 1 mL 0.4 MG IV (13:26)
[2024-01-03] MEDS: leucovorin 700 MG in dextrose 5% 250 ML 166.67 MG IV (13:30)
[2024-01-03] MEDS: irinotecan 300 MG in dextrose 5% 250 ML 176.67 MG IV (13:31)
[2024-01-03] MEDS: fluorouraciL 4,250 MG, elastomeric pump 1 PUMP in sodium chloride 0.9% (100 ml) 7 ML IV (15:29)
[2024-01-03 15:35] VITALS: BP 118/65; PULSE 59; RESP 16; TEMP 35.7; O2SAT 98
[2024-01-05 10:57] VITALS: BP 132/78; PULSE 58; RESP 16; TEMP 36.6
== END 2024-01-18 23:59 | disposition home or self-care (01) ==
PROVIDERS: Nurse Practitioner Family; PCP Clinical Nurse Specialist Adult Health; Visit Provider Internal Medicine Hematology & Oncology
DX: Z45.1 Encounter for adjustment and management of infusion pump (principal); Z53.9 Procedure and treatment not carried out, unspecified reason
CPT/HCPCS: 80053; 83615; 83735; 85025; 96365; 96366; 96375; 96413; 96415; 96416; 96417; 96523; A4222; J0461; J0640; J1100; J1200; J2469; J7050; J7060; J9190; J9206; J9303

== ENCOUNTER 2024-02-02 11:00 | Oncology outpatient (recurring) (ONCR) | payer BC, SELFPAY ==
--- NOTE | 2024-01-19 13:00 | CTR_ITS ---
PROCEDURE INFORMATION: Exam: CT Chest With Contrast; Diagnostic Exam date and time: 01/19/2024 1:34 PM Age: 58 years old Clinical indication: Prior surgery; Surgery date: 6+ months; Surgery type: Colostomy, , rectal tumor, hernia; Patient HX: Rectal cancer, increased tumor markers; Additional info: Followup rectal cancer TECHNIQUE: Imaging protocol: Diagnostic computed tomography of the chest with contrast. Radiation optimization: All CT scans at this facility use at least one of these dose optimization techniques: automated exposure control; mA and/or kV adjustment per patient size (includes targeted exams where dose is matched to clinical indication); or iterative reconstruction. Contrast material: [id number]; Contrast volume: 100 ml; Contrast route: INTRAVENOUS (IV); COMPARISON: PT PET skull to thigh SUBS [id number] 08/22/2023 11:12 AM RADIATION DOSE METRICS: Total DLP (mGy-cm): 825.46 FINDINGS: Tubes, catheters and devices: Central line tip terminates in the cavoatrial junction. Lungs: Right upper lobe granuloma noted. No concerning pulmonary nodules. No infiltrate. Pleural spaces: Unremarkable. No pneumothorax. No pleural effusion. Heart: Unremarkable. No cardiomegaly. No pericardial effusion. Lymph nodes: Unremarkable. No enlarged lymph nodes. Vasculature: Unremarkable. No aortic aneurysm. Bones/joints: Unremarkable. No acute fracture. Soft tissues: Unremarkable. PROCEDURE INFORMATION: Exam: CT Abdomen And Pelvis With Contrast Exam date and time: 01/19/2024 1:34 PM Age: 58 years old Clinical indication: Prior surgery; Surgery date: 6+ months; Surgery type: Colostomy, , rectal tumor, hernia; Patient HX: Rectal cancer, increased tumor markers; Additional info: Followup rectal cancer TECHNIQUE: Imaging protocol: Computed tomography of the abdomen and pelvis with contrast. Radiation optimization: All CT scans at this facility use at least one of these dose optimization techniques: automated exposure control; mA and/or kV adjustment per patient size (includes targeted exams where dose is matched to clinical indication); or iterative reconstruction. Contrast material: [id number]; Contrast volume: 100 ml; Contrast route: INTRAVENOUS (IV); COMPARISON: PT PET skull to thigh SUBS [id number] 08/22/2023 11:12 AM RADIATION DOSE METRICS: Total DLP (mGy-cm): 825.46 FINDINGS: Liver: Infiltrative lesion with segment 6 of the right hepatic lobe again noted today measuring 5.6 x 5.1 cm previously 7.1 x 6.6 cm. Gallbladder and biliary ducts: Gallbladder not visualized. Pancreas: Normal. No ductal dilation. Spleen: Benign splenic granulomas noted. Adrenal glands: Normal. No mass. Kidneys and ureters: Normal. No hydronephrosis. Stomach and bowel: Left lower quadrant colostomy again noted. Circumferential thickening of the residual rectum containing small amount of fluid unchanged. Distal colon resection. Appendix: No evidence of appendicitis. Intraperitoneal space: Unremarkable. No free air. No significant fluid collection. Vasculature: Unremarkable. No abdominal aortic aneurysm. Lymph nodes: Unremarkable. No enlarged lymph nodes. Urinary bladder: Concentric urinary bladder wall thickening unchanged. Reproductive: Unremarkable as visualized. Bones/joints: Unremarkable. No acute fracture. Soft tissues: Ill-defined spiculated soft tissue focus left pelvis above the dome of the bladder measures roughly 4.3 x 1.8 cm slightly decreased. Linear density previously noted anteromedial to this on the prior PET-CT is not seen today. CT/CT chest abdpel w/*[id number] IMPRESSION: No acute findings. No evidence of metastatic disease. IMPRESSION: 1. No acute findings. 2. Right hepatic lobe lesion modestly decreased. 3. Spiculated soft tissue density in the left hemipelvis is modestly decreased. 4. Concentric urinary bladder wall thickening unchanged.
[2024-01-19] MEDS: iohexol 350 mg/mL 500 mL Btl (per mL) IV (13:41)
[2024-01-19] MEDS: iohexol 350 mg/mL 500 mL Btl (per mL) PO (13:41)
[2024-01-24 12:30] LABS: Basophils % 0.5 %; Eosinophils # 0.2 10^3/uL (0.0-0.8); Eosinophils % 2.1 %; Hematocrit 39.7 % (37-53); Lymphocytes # 1.2 10^3/uL (0.8-4.8); Lymphocytes % 15.3 %; Mean Corpuscular HGB Conc 29.7 g/dL (30-55); Mean Corpuscular Hemoglobin 24.3 pg (27-33); Mean Corpuscular Volume 81.9 fl (82-101); Mean Platelet Volume 10.6 fL (7.4-10.4); Monocytes # 1.1 10^3/uL (0.2-0.9); Monocytes % 13.4 %; Neutrophils % 64.7 %; Nucleated Red Blood Cells % 0 %; Platelet Count 344 10^3/cmm (157-399); Red Blood Count 4.85 10^6/uL (3.85-5.65); Red Cell Distribution Width 23.1 % (12.1-15.1); White Blood Count 8.04 10^3/uL (3.29-11.43)
[2024-01-24 12:55] LABS: Carcinoembryonic Antigen 3.7 ng/mL (0.0-4.7)
[2024-01-24 13:06] LABS: Alanine Aminotransferase 16 U/L (0-41); Albumin Level 3.5 g/dL (3.5-5.2); Alkaline Phosphatase 79 U/L (40-130); Aspartate Amino Transferase 18 U/L (0-40); Blood Urea Nitrogen 13 mg/dL (6-20); Calcium 7.9 mg/dL (8.5-10.5); Carbon Dioxide 26 mmol/L (22-29); Chloride 107 mmol/L (98-107); Creatinine Clr Calc Pharmacy 64.8352; Globulin 2.2 g/dL (1.3-4.6); Glucose 63 mg/dL (65-115); Osmolality Calculated 296 mOsm/kg (285-295); Sodium 144 mmol/L (136-145); Total Bilirubin 0.5 mg/dL (0.15-1.2); Total Protein 5.7 g/dL (6.6-8.7)
[2024-01-24 13:10] LABS: Lactate Dehydrogenase 166 U/L (135-225)
[2024-01-31 10:21] LABS: Basophils % 0.2 %; Eosinophils # 0.1 10^3/uL (0.0-0.8); Eosinophils % 0.6 %; Hematocrit 39.7 % (37-53); Lymphocytes # 1.4 10^3/uL (0.8-4.8); Lymphocytes % 12.6 %; Mean Corpuscular HGB Conc 29.5 g/dL (30-55); Mean Corpuscular Hemoglobin 24.5 pg (27-33); Mean Corpuscular Volume 83.2 fl (82-101); Mean Platelet Volume 10.5 fL (7.4-10.4); Monocytes # 0.9 10^3/uL (0.2-0.9); Monocytes % 8.2 %; Neutrophils # 8.57 10^3/uL (1.8-7.7); Neutrophils % 76.4 %; Nucleated Red Blood Cells % 0 %; Platelet Count 278 10^3/cmm (157-399); Red Blood Count 4.77 10^6/uL (3.85-5.65); Red Cell Distribution Width 22.3 % (12.1-15.1); White Blood Count 11.21 10^3/uL (3.29-11.43)
[2024-01-31 10:48] LABS: Carcinoembryonic Antigen 4.3 ng/mL (0.0-4.7)
[2024-01-31 11:00] LABS: Alanine Aminotransferase 17 U/L (0-41); Albumin Level 3.6 g/dL (3.5-5.2); Alkaline Phosphatase 77 U/L (40-130); Anion Gap 11.7 (5-19); Aspartate Amino Transferase 14 U/L (0-40); Blood Urea Nitrogen 14 mg/dL (6-20); Calcium 8.3 mg/dL (8.5-10.5); Carbon Dioxide 26 mmol/L (22-29); Chloride 106 mmol/L (98-107); Globulin 2.3 g/dL (1.3-4.6); Glucose 97 mg/dL (65-115); Lactate Dehydrogenase 164 U/L (135-225); Osmolality Calculated 290 mOsm/kg (285-295); Potassium 3.7 mmol/L (3.5-5.1); Sodium 140 mmol/L (136-145); Total Bilirubin 0.5 mg/dL (0.15-1.2); Total Protein 5.9 g/dL (6.6-8.7)
[2024-01-31] MEDS: sodium chloride 0.9% 250 ML 75 ML IV (11:44)
[2024-01-31] MEDS: diphenhydrAMINE 50 mg/mL SDV 1mL 25 MG IVP (11:44)
[2024-01-31] MEDS: dexamethasone 4 mg/mL INJ 5 mL 12 MG IVP (11:50)
[2024-01-31] MEDS: palonosetron 0.25 mg/5 mL SDV IVP (11:53)
[2024-01-31 11:57] VITALS: BP 128/76; PULSE 41; TEMP 36.4; O2SAT 99
[2024-01-31] MEDS: PANITUMUMAB IV (12:13)
[2024-01-31] MEDS: SODIUM CHLORIDE 0.9% IV (12:13)
[2024-01-31] MEDS: atropine 1 mg/mL SDV 1 mL 0.4 MG IV (13:19)
[2024-01-31] MEDS: irinotecan 300 MG, irinotecan 30 MG in dextrose 5% 250 ML 177.67 MG IV (13:27)
[2024-01-31] MEDS: leucovorin 720 MG in dextrose 5% 250 ML 166.67 MG IV (13:27)
[2024-01-31] MEDS: fluorouraciL 4,350 MG, elastomeric pump 1 PUMP in sodium chloride 0.9% (100 ml) 5 ML IV (15:14)
[2024-01-31 15:17] VITALS: BP 121/64; PULSE 48; TEMP 36.4; O2SAT 99
[2024-02-02 11:11] VITALS: BP 123/75; PULSE 59; RESP 18; TEMP 36.3; O2SAT 98
== END 2024-02-17 23:59 | disposition home or self-care (01) ==
PROVIDERS: PCP Clinical Nurse Specialist Adult Health; Visit Provider Internal Medicine Hematology & Oncology
DX: Z45.1 Encounter for adjustment and management of infusion pump; Z53.9 Procedure and treatment not carried out, unspecified reason
CPT/HCPCS: 71260; 74177; 80053; 82378; 83615; 83735; 85025; 96368; 96375; 96413; 96415; 96416; 96417; 96523; A4222; J0461; J0640; J1100; J1200; J2469; J7050; J7060; J9190; J9206; J9303

== ENCOUNTER 2024-03-19 08:15 | Oncology outpatient (recurring) (ONCR) | payer BC, SELFPAY ==
[2024-02-19 10:02] LABS: Basophils % 0.1 %; Eosinophils # 0.1 10^3/uL (0.0-0.8); Eosinophils % 1.2 %; Hematocrit 38.8 % (37-53); Lymphocytes # 1.5 10^3/uL (0.8-4.8); Lymphocytes % 21.7 %; Mean Corpuscular HGB Conc 30.2 g/dL (30-55); Mean Corpuscular Hemoglobin 25.9 pg (27-33); Mean Corpuscular Volume 85.8 fl (82-101); Mean Platelet Volume 10.7 fL (7.4-10.4); Monocytes # 0.8 10^3/uL (0.2-0.9); Monocytes % 11.2 %; Neutrophils # 4.17 10^3/uL (1.8-7.7); Neutrophils % 62.1 %; Nucleated Red Blood Cells % 0 %; Platelet Count 249 10^3/cmm (157-399); Red Blood Count 4.52 10^6/uL (3.85-5.65); Red Cell Distribution Width 19.9 % (12.1-15.1); White Blood Count 6.72 10^3/uL (3.29-11.43)
[2024-02-19 10:29] LABS: Carcinoembryonic Antigen 3.2 ng/mL (0.0-4.7)
[2024-02-19 10:40] LABS: Alanine Aminotransferase 15 U/L (0-41); Albumin Level 3.4 g/dL (3.5-5.2); Alkaline Phosphatase 69 U/L (40-130); Anion Gap 11.7 (5-19); Aspartate Amino Transferase 10 U/L (0-40); Blood Urea Nitrogen 13 mg/dL (6-20); Calcium 8.4 mg/dL (8.5-10.5); Carbon Dioxide 24 mmol/L (22-29); Chloride 109 mmol/L (98-107); Creatinine Clr Calc Pharmacy 98.2991; Glomerular Filtration Rate 99.6 mL/min (90-130); Glucose 71 mg/dL (65-115); Lactate Dehydrogenase 111 U/L (135-225); Magnesium 2.1 mg/dL (1.7-2.3); Osmolality Calculated 291 mOsm/kg (285-295); Potassium 3.7 mmol/L (3.5-5.1); Sodium 141 mmol/L (136-145); Total Bilirubin 0.4 mg/dL (0.15-1.2); Total Protein 5.4 g/dL (6.6-8.7)
[2024-02-19] MEDS: sodium chloride 0.9% 250 ML 75 ML IV (11:43)
[2024-02-19] MEDS: palonosetron 0.25 mg/5 mL SDV IVP (11:46)
[2024-02-19] MEDS: dexamethasone 4 mg/mL INJ 5 mL 12 MG IVP (11:48)
[2024-02-19] MEDS: diphenhydrAMINE 50 mg/mL SDV 1mL 25 MG IVP (11:51)
[2024-02-19] MEDS: PANITUMUMAB IV (12:20)
[2024-02-19] MEDS: SODIUM CHLORIDE 0.9% IV (12:20)
[2024-02-19] MEDS: atropine 1 mg/mL SDV 1 mL 0.4 MG IV (13:41)
[2024-02-19] MEDS: leucovorin 720 MG in dextrose 5% 250 ML 166.67 MG IV (14:01)
[2024-02-19] MEDS: irinotecan 300 MG, irinotecan 30 MG in dextrose 5% 250 ML 177.67 MG IV (14:02)
[2024-02-19] MEDS: fluorouraciL 4,350 MG, elastomeric pump 1 PUMP in sodium chloride 0.9% (100 ml) 5 ML IV (15:35)
[2024-02-19 15:39] VITALS: BP 112/71; PULSE 45; RESP 16; TEMP 35.8; O2SAT 98
[2024-03-04 08:05] LABS: Alanine Aminotransferase 26 U/L (0-41); Albumin Level 3.4 g/dL (3.5-5.2); Alkaline Phosphatase 71 U/L (40-130); Anion Gap 15.6 (5-19); Aspartate Amino Transferase 13 U/L (0-40); Blood Urea Nitrogen 14 mg/dL (6-20); Calcium 8.4 mg/dL (8.5-10.5); Carbon Dioxide 23 mmol/L (22-29); Chloride 106 mmol/L (98-107); Creatinine Clr Calc Pharmacy 88.7711; Globulin 2.1 g/dL (1.3-4.6); Glucose 112 mg/dL (65-115); Osmolality Calculated 293 mOsm/kg (285-295); Potassium 3.6 mmol/L (3.5-5.1); Sodium 141 mmol/L (136-145); Total Bilirubin 0.5 mg/dL (0.15-1.2); Total Protein 5.5 g/dL (6.6-8.7)
[2024-03-04 08:30] LABS: Basophils % 0.2 %; Eosinophils # 0.1 10^3/uL (0.0-0.8); Hematocrit 41.4 % (37-53); Lymphocytes # 1.4 10^3/uL (0.8-4.8); Lymphocytes % 15.6 %; Mean Corpuscular HGB Conc 29.5 g/dL (30-55); Mean Corpuscular Hemoglobin 25.4 pg (27-33); Mean Corpuscular Volume 86.3 fl (82-101); Mean Platelet Volume 11.6 fL (7.4-10.4); Monocytes # 0.6 10^3/uL (0.2-0.9); Monocytes % 6.7 %; Neutrophils # 6.89 10^3/uL (1.8-7.7); Neutrophils % 75.5 %; Nucleated Red Blood Cells % 0.2 %; Platelet Count 209 10^3/cmm (157-399); Red Cell Distribution Width 19.8 % (12.1-15.1); White Blood Count 9.12 10^3/uL (3.29-11.43)
[2024-03-04] MEDS: diphenhydrAMINE 50 mg/mL SDV 1mL 25 MG IVP (09:38)
[2024-03-04] MEDS: sodium chloride 0.9% 250 ML 50 ML IV (09:55)
[2024-03-04] MEDS: dexamethasone 4 mg/mL INJ 5 mL 12 MG IVP (09:55)
[2024-03-04] MEDS: palonosetron 0.25 mg/5 mL SDV IVP (10:03)
--- NOTE | 2024-03-04 10:10 | PC.NURSE ---
pt took tylenol at home
[2024-03-04] MEDS: PANITUMUMAB IV (10:34)
[2024-03-04] MEDS: SODIUM CHLORIDE 0.9% IV (10:34)
[2024-03-04] MEDS: atropine 1 mg/mL SDV 1 mL 0.4 MG IV (11:38)
[2024-03-04] MEDS: irinotecan 300 MG, irinotecan 30 MG in dextrose 5% 250 ML 177.67 MG IV (11:52)
[2024-03-04] MEDS: leucovorin 720 MG in dextrose 5% 250 ML 166.67 MG IV (11:52)
[2024-03-04] MEDS: fluorouraciL 4,350 MG, elastomeric pump 1 PUMP in sodium chloride 0.9% (100 ml) 5 ML IV (13:41)
[2024-03-04 13:49] VITALS: BP 122/56; PULSE 44; RESP 16; TEMP 36.5; O2SAT 99
[2024-03-19 08:46] LABS: Basophils % 0.1 %; Eosinophils % 0.6 %; Hematocrit 42.5 % (37-53); Lymphocytes # 1.2 10^3/uL (0.8-4.8); Lymphocytes % 17.3 %; Mean Corpuscular HGB Conc 30.4 g/dL (30-55); Mean Corpuscular Hemoglobin 25.9 pg (27-33); Mean Corpuscular Volume 85.2 fl (82-101); Monocytes # 0.6 10^3/uL (0.2-0.9); Monocytes % 8.6 %; Neutrophils # 4.91 10^3/uL (1.8-7.7); Neutrophils % 72.4 %; Nucleated Red Blood Cells % 0 %; Platelet Count 179 10^3/cmm (157-399); Red Blood Count 4.99 10^6/uL (3.85-5.65); Red Cell Distribution Width 18.6 % (12.1-15.1); White Blood Count 6.78 10^3/uL (3.29-11.43)
[2024-03-19 09:04] LABS: Carcinoembryonic Antigen 2.4 ng/mL (0.0-4.7)
[2024-03-19 09:15] LABS: Alanine Aminotransferase 22 U/L (0-41); Albumin Level 3.5 g/dL (3.5-5.2); Alkaline Phosphatase 67 U/L (40-130); Anion Gap 14.1 (5-19); Aspartate Amino Transferase 11 U/L (0-40); Blood Urea Nitrogen 13 mg/dL (6-20); Calcium 8.6 mg/dL (8.5-10.5); Carbon Dioxide 24 mmol/L (22-29); Chloride 109 mmol/L (98-107); Creatinine Clr Calc Pharmacy 88.1901; Globulin 2.3 g/dL (1.3-4.6); Glucose 97 mg/dL (65-115); Osmolality Calculated 296 mOsm/kg (285-295); Potassium 4.1 mmol/L (3.5-5.1); Sodium 143 mmol/L (136-145); Total Bilirubin 0.6 mg/dL (0.15-1.2); Total Protein 5.8 g/dL (6.6-8.7)
[2024-03-19] MEDS: sodium chloride 0.9% 250 ML 75 ML IV (10:16)
[2024-03-19] MEDS: palonosetron 0.25 mg/5 mL SDV IVP (10:17)
[2024-03-19] MEDS: dexamethasone 4 mg/mL INJ 5 mL 12 MG IVP (10:19)
[2024-03-19] MEDS: diphenhydrAMINE 50 mg/mL SDV 1mL 25 MG IVP (10:22)
[2024-03-19] MEDS: PANITUMUMAB IV (10:57)
[2024-03-19] MEDS: SODIUM CHLORIDE 0.9% IV (10:57)
[2024-03-19] MEDS: atropine 1 mg/mL SDV 1 mL 0.4 MG IV (12:36)
[2024-03-19] MEDS: irinotecan 300 MG, irinotecan 30 MG in dextrose 5% 250 ML 177.67 MG IV (12:39)
[2024-03-19] MEDS: leucovorin 720 MG in dextrose 5% 250 ML 166.67 MG IV (12:39)
[2024-03-19] MEDS: fluorouraciL 4,350 MG, elastomeric pump 1 PUMP in sodium chloride 0.9% (100 ml) 5 ML IV (14:43)
[2024-03-19 14:55] VITALS: BP 133/74; PULSE 56; TEMP 36.6; O2SAT 99
== END 2024-03-19 23:59 | disposition home or self-care (01) ==
PROVIDERS: Internal Medicine Hematology & Oncology; PCP Clinical Nurse Specialist Adult Health; Visit Provider Internal Medicine Medical Oncology
DX: Z53.9 Procedure and treatment not carried out, unspecified reason (principal); Z51.11 Encounter for antineoplastic chemotherapy; C20 Malignant neoplasm of rectum; Z79.899 Other long term (current) drug therapy; Z79.52 Long term (current) use of systemic steroids
CPT/HCPCS: 80053; 82378; 83615; 83735; 85025; 96365; 96366; 96368; 96375; 96413; 96415; 96416; 96417; 96523; A4222; J0461; J0640; J1100; J1200; J2469; J7050; J7060; J9190; J9206; J9303

== ENCOUNTER 2024-04-18 11:30 | Oncology outpatient (recurring) (ONCR) | payer BC, SELFPAY ==
[2024-04-02 09:32] LABS: Basophils % 0.3 %; Eosinophils % 0.3 %; Hematocrit 43.1 % (37-53); Lymphocytes # 1.2 10^3/uL (0.8-4.8); Mean Corpuscular HGB Conc 31.1 g/dL (30-55); Mean Corpuscular Hemoglobin 25.5 pg (27-33); Mean Corpuscular Volume 82.1 fl (82-101); Mean Platelet Volume 10.4 fL (7.4-10.4); Monocytes # 0.6 10^3/uL (0.2-0.9); Monocytes % 7.8 %; Neutrophils # 5.35 10^3/uL (1.8-7.7); Neutrophils % 74.1 %; Nucleated Red Blood Cells % 0 %; Platelet Count 213 10^3/cmm (157-399); Red Blood Count 5.25 10^6/uL (3.85-5.65); Red Cell Distribution Width 17.9 % (12.1-15.1); White Blood Count 7.21 10^3/uL (3.29-11.43)
[2024-04-02 09:59] LABS: Carcinoembryonic Antigen 2.4 ng/mL (0.0-4.7)
[2024-04-02 10:10] LABS: Alanine Aminotransferase 27 U/L (0-41); Albumin Level 3.6 g/dL (3.5-5.2); Alkaline Phosphatase 74 U/L (40-130); Anion Gap 13.9 (5-19); Aspartate Amino Transferase 13 U/L (0-40); Blood Urea Nitrogen 13 mg/dL (6-20); Calcium 8.7 mg/dL (8.5-10.5); Carbon Dioxide 24 mmol/L (22-29); Chloride 105 mmol/L (98-107); Creatinine Clr Calc Pharmacy 88.5969; Globulin 2.4 g/dL (1.3-4.6); Glucose 93 mg/dL (65-115); Osmolality Calculated 288 mOsm/kg (285-295); Potassium 3.9 mmol/L (3.5-5.1); Sodium 139 mmol/L (136-145); Total Bilirubin 0.6 mg/dL (0.15-1.2)
[2024-04-02] MEDS: sodium chloride 0.9% 250 ML 50 ML IV (10:36)
[2024-04-02] MEDS: dexamethasone 4 mg/mL INJ 5 mL 12 MG IVP (10:39)
[2024-04-02] MEDS: palonosetron 0.25 mg/5 mL SDV IVP (10:46)
[2024-04-02] MEDS: diphenhydrAMINE 50 mg/mL SDV 1mL 25 MG IVP (10:49)
[2024-04-02] MEDS: PANITUMUMAB IV (11:11)
[2024-04-02] MEDS: SODIUM CHLORIDE 0.9% IV (11:11)
[2024-04-02] MEDS: atropine 1 mg/mL SDV 1 mL 0.4 MG IV (12:38)
[2024-04-02] MEDS: irinotecan 300 MG, irinotecan 30 MG in dextrose 5% 250 ML 177.67 MG IV (12:46)
[2024-04-02] MEDS: leucovorin 720 MG in dextrose 5% 250 ML 166.67 MG IV (12:47)
[2024-04-02] MEDS: fluorouraciL 4,350 MG, elastomeric pump 1 PUMP in sodium chloride 0.9% (100 ml) 5 ML IV (14:28)
[2024-04-02 14:33] VITALS: BP 132/70; PULSE 66; RESP 16; TEMP 36; O2SAT 99
[2024-04-16 09:46] LABS: Basophils % 0.1 %; Eosinophils # 0.1 10^3/uL (0.0-0.8); Eosinophils % 1.2 %; Hematocrit 43.9 % (37-53); Lymphocytes # 1.3 10^3/uL (0.8-4.8); Lymphocytes % 19.8 %; Mean Corpuscular HGB Conc 30.3 g/dL (30-55); Mean Corpuscular Hemoglobin 25.9 pg (27-33); Mean Corpuscular Volume 85.4 fl (82-101); Mean Platelet Volume 9.2 fL (7.4-10.4); Monocytes # 0.5 10^3/uL (0.2-0.9); Monocytes % 7.8 %; Neutrophils # 4.64 10^3/uL (1.8-7.7); Neutrophils % 69.5 %; Nucleated Red Blood Cells % 0 %; Platelet Count 151 10^3/cmm (157-399); Red Blood Count 5.14 10^6/uL (3.85-5.65); Red Cell Distribution Width 19.7 % (12.1-15.1); White Blood Count 6.68 10^3/uL (3.29-11.43)
[2024-04-16 10:16] LABS: Carcinoembryonic Antigen 2.5 ng/mL (0.0-4.7)
[2024-04-16 10:29] LABS: Alanine Aminotransferase 27 U/L (0-41); Albumin Level 3.5 g/dL (3.5-5.2); Alkaline Phosphatase 66 U/L (40-130); Anion Gap 16.5 (5-19); Aspartate Amino Transferase 18 U/L (0-40); Blood Urea Nitrogen 13 mg/dL (6-20); Calcium 8.3 mg/dL (8.5-10.5); Carbon Dioxide 23 mmol/L (22-29); Chloride 105 mmol/L (98-107); Creatinine Clr Calc Pharmacy 80.3777; Globulin 2.1 g/dL (1.3-4.6); Glucose 127 mg/dL (65-115); Osmolality Calculated 294 mOsm/kg (285-295); Potassium 3.5 mmol/L (3.5-5.1); Sodium 141 mmol/L (136-145); Total Bilirubin 0.4 mg/dL (0.15-1.2); Total Protein 5.6 g/dL (6.6-8.7)
[2024-04-16] MEDS: sodium chloride 0.9% 250 ML 75 ML IV (11:18)
[2024-04-16] MEDS: palonosetron 0.25 mg/5 mL SDV IVP (11:19)
[2024-04-16] MEDS: dexamethasone 4 mg/mL INJ 5 mL 12 MG IVP (11:27)
[2024-04-16] MEDS: diphenhydrAMINE 50 mg/mL SDV 1mL 25 MG IVP (11:29)
[2024-04-16] MEDS: PANITUMUMAB IV (11:54)
[2024-04-16] MEDS: SODIUM CHLORIDE 0.9% IV (11:54)
[2024-04-16] MEDS: atropine 1 mg/mL SDV 1 mL 0.4 MG IV (13:12)
[2024-04-16] MEDS: dextrose 5% 250 ML 75 ML IV (13:14)
[2024-04-16] MEDS: irinotecan 300 MG, irinotecan 30 MG in dextrose 5% 250 ML 177.67 MG IV (13:15)
[2024-04-16] MEDS: leucovorin 720 MG in dextrose 5% 250 ML 166.67 MG IV (13:15)
[2024-04-16 14:59] VITALS: BP 110/63; PULSE 52; RESP 18; TEMP 36.6; O2SAT 97
[2024-04-16] MEDS: fluorouraciL 4,350 MG, elastomeric pump 1 PUMP in sodium chloride 0.9% (100 ml) 5 ML IV (15:14)
== END 2024-04-19 23:59 | disposition home or self-care (01) ==
PROVIDERS: PCP Clinical Nurse Specialist Adult Health; Visit Provider Internal Medicine Medical Oncology
DX: Z45.1 Encounter for adjustment and management of infusion pump (principal); Z53.9 Procedure and treatment not carried out, unspecified reason
CPT/HCPCS: 80053; 82378; 85025; 96368; 96375; 96413; 96415; 96416; 96417; 96523; A4222; J0461; J0640; J1100; J1200; J2469; J7050; J7060; J9190; J9206; J9303

== ENCOUNTER 2024-04-22 15:28 | Oncology outpatient (recurring) (ONCR) | payer BC, SELFPAY ==
[2024-04-22] MEDS: iohexol 350 mg/mL 500 mL Btl (per mL) PO (16:24)
--- NOTE | 2024-04-22 16:30 | CT_ITS ---
WS: [id number] CT CHEST, ABDOMEN AND PELVIS WITH CONTRAST HISTORY: rectal cancer TECHNIQUE: Contiguous 5 mm axial imaging performed through the chest, abdomen and pelvis with IV contrast, oral contrast has been provided. Coronal and sagittal reformats chest. Coronal and sagittal reformats through the abdomen and pelvis. All CT scans at [facility] use at least one of these dose optimization techniques: automated exposure control; mA and/or kV adjustment per patient size (includes targeted exams where dose is matched to clinical indication); or iterative reconstruction. CONTRAST: Omnipaque 350; 100 mL IV. DLP: 922.42 mGy.cm COMPARISON: PET/CT 08/22/2023, chest CT abdomen and pelvis 01/19/2024 and 08/09/[address]: Lung volumes are decreased. RIGHT upper lobe granuloma. No mass or pneumonia. No noncalcified pulmonary nodule. LEFT subclavian Mediport. No mediastinal or hilar adenopathy. Normal size aorta and pulmonary artery. Heart size is normal. No pericardial or pleural effusions. Lytic lesion in the sternal manubrium measures 2.1 x 1[address]: Significant decrease in size of the metastatic liver lesions. Single metastatic site in the posterior RIGHT lobe of the liver measures 2.8 x 1.7 cm. There are a few additional very tiny foci within the liver. Mild thickening of the liver capsule along the RIGHT inferior liver margin. Gallbladder is slightly contracted with increased attenuation centrally. Normal pancreas. Normal size spleen with granulomata. No renal obstruction or interval change. Mild atherosclerosis aorta. Stomach is well distended. No small bowel obstruction. LEFT abdominal colostomy. No obstruction of the distal colon at the colostomy site. Pelvic CT: Soft tissue nodule in the LEFT pelvis closely associated with the bladder and small bowel measures 2.8 x 2.1 cm without significant increase in size or changed since the most recent exam. No new mass or mesenteric implant or adenopathy identified. Several sclerotic foci in the bones of the pelvis have been present on prior studies. Negative on PET/CT imaging. CT/CT chest abdpel w/*[id number] IMPRESSION: 1. No pulmonary metastatic lung lesions or adenopathy in the thorax. 2. Lytic lesion in the sternal manubrium was negative on PET/CT and stable. 3. Only a single liver lesion is identified measuring 2.8 x 1.7 cm in the post erior RIGHT lobe. This has decreased in size since the prior study. Prior measu rement on 01/19/2024 5.6 x 5.1 cm. 4. Mild thickening of the hepatic capsule with a small amount of fluid, inferi or RIGHT lobe of the liver is unchanged. 5. Metastatic soft tissue nodule in the LEFT pelvis closely associated with th e bladder and the sigmoid resection site measures 2.8 x 2.1 cm with no change s norah the most recent study. Prior measurement 4.3 x 1.8 cm. 6. No new mass or mesenteric implant or adenopathy.
[2024-04-22] MEDS: iohexol 350 mg/mL 500 mL Btl (per mL) IV (16:35)
== END 2024-05-17 23:59 | disposition home or self-care (01) ==
LOC: ONCMED 15:30 → RAD 15:33 → ONCMED 04-23 10:02
PROVIDERS: PCP Clinical Nurse Specialist Adult Health; Visit Provider Internal Medicine Medical Oncology
DX: C20 Malignant neoplasm of rectum (principal); C79.89 Secondary malignant neoplasm of other specified sites; K76.9 Liver disease, unspecified
CPT/HCPCS: 71260; 74177

== ENCOUNTER 2024-06-13 12:15 | Oncology outpatient (recurring) (ONCR) | payer BC, SELFPAY ==
--- NOTE | 2024-05-24 11:30 | PETR_ITS ---
PROCEDURE INFORMATION: Exam: PET/CT Skull Base to Mid-thigh Exam date and time: 05/24/2024 12:41 PM Age: 58 years old Clinical indication: Restaging of metastatic rectal cancer; Primary cancer: Adencarcinoma of rectum; Follow-up oncological assessment; Prior surgery; Surgery date: 6+ months; Surgery type: Colorectal, hernia, colostomy LABS AND CLINICAL REPORTS: Glucose: 96 mg/dl Treatment strategy for malignancy (PET staging): Restaging (PS) TECHNIQUE: Imaging protocol: Following at least four-hour fasting and following the injection of radiopharmaceutical, low dose CT images were obtained. Then, PET images were obtained. Attenuation corrected images were constructed using the CT scan. Fused images of PET and CT were reviewed. The standardized uptake values (SUV) reported below are maximum values within a region of interest, expressed in gm/ml. Exam includes orbital meatal line to mid-thigh. SUV normalization method: BodyWeight Radiopharmaceutical: 10.63 mCi F-18 FDG (Fluorodeoxyglucose), IV. Time of imaging post radiopharmaceutical administration: 49 minutes Injection site: left hand COMPARISON: CT chest abdomen pelvis 05/12/2024, 01/19/2024, PET skull to thigh SUBS 08/22/2023 FINDINGS: Tubes, catheters and devices: Port catheter placed via the left subclavian vein terminates in the cavoatrial junction. Brain: Normal physiologic uptake. Pharynx: No abnormal uptake. Larynx: No abnormal uptake. Lungs, pleura and trachea: No abnormal uptake. No suspicious lung nodules or masses. Stable calcified granulomas in the right upper lobe. Stable subsegmental atelectasis in the lung basis. Heart: No abnormal uptake. There is no cardiomegaly. There is no pericardial effusion. Mediastinal space: No abnormal uptake. Maximal mediastinal blood pool uptake 2.2 SUV. Liver: The largest segment 7 liver metastases has slightly decreased in size and uptake in comparison with 08/22/2023 (from 6.4 x 4.7 x 8 cm/13.4 SUV to 5.5 x 3.7 x 5.5 cm /11.4 SUV), though there is size of the lesion has dramatically increased since the most recent exam on 04/22/2024 when it measured about 3.5 x 2.3 x 4.4 cm. New about 1 cm focus of increased uptake in the segment 5 adjacent to the liver capsule measuring 4.2 SUV is compatible with a new metastasis that can be intrahepatic or intraperitoneal adjacent to the liver capsule. Gallbladder and biliary ducts: No abnormal uptake. Stable 1.5 cm soft tissue density nodule in the gallbladder with no abnormal uptake representing benign finding. Pancreas: No abnormal uptake. Spleen: No abnormal uptake. No splenomegaly. Stable small calcified granulomas. adrenal glands: No abnormal uptake. Adrenal glands: No abnormal uptake. No nodules. Kidneys and ureters: Normal physiologic uptake. No hydronephrosis. Stomach and bowel: No abnormal uptake. Stable changes after Yao pouch surgery with colostomy from descending colon in the left upper abdomen. Intraperitoneal and retroperitoneal spaces: Previously present stable in size elongated peritoneal metastasis adjacent to the liver capsule in the segment 6 on axial image 141 (about 3 x 1.5 cm) increased in uptake from 8.7 SUV to 14.5 SUV. In comparison with 08/22/2023 there are multiple new FDG avid omental/peritoneal nodules compatible with implants of carcinomatosis. This includes 0.7 cm nodule in the left upper quadrant measuring 5.8 SUV on axial image 122, 0.9 cm nodule adjacent to the liver capsule in the right upper abdomen on axial image 139 measuring 9.9 SUV, 0.8 cm nodule in the left transverse mesocolon on axial image 142 measuring 11.3 SUV, about 1.5 cm nodule medially to the spleen on axial image 147 measuring 9.2 SUV, about 3 x 2 cm lesion between the lateral capsule of the spleen and the left diaphragm on axial image 118 measuring 15.5 SUV linear focus in the left omentum on axial image 163 measuring 10.4 SUV, subcentimeter focus adjacent to the fascia at the level of the umbilicus on axial image 200 measuring 5.3 SUV, 0.8 cm right lower quadrant nodule on axial image 208 measuring 6.3 SUV, 1 cm nodule in the right mesentery on axial image 170 measuring 17.7 SUV. Some peritoneal metastasis are rapidly growing including 3 x 2 cm nodule laterally to the spleen increased from 2 x 1 cm on 04/22/2024. 0.6 cm nodule with increased uptake of 5.4 SUV adjacent to the right lateral conal fascia noted on axial image 158. No ascites. Focal linear uptake of 10.6 SUV within soft tissue density along the left pelvic sidewall immediately above the bladder previously measured about 8.8 SUV remains stable in size with maximum [id number] thickness of 1.4 cm. Urinary bladder: Normal physiologic uptake. Reproductive: No abnormal uptake. Vasculature: No abnormal uptake. No aortic aneurysm. Lymph nodes: No FDG avid lymphadenopathy in the neck, chest, abdomen, pelvis, and extremities. Skeleton: No abnormal uptake in the visualized axial and appendicular skeleton. Stable sharply-circumscribed fat density focus in the right aspect of manubrium sternum is suggestive of benign finding of intraosseous lipoma. Soft tissues: No abnormal uptake in the visualized head, neck, chest, abdomen, pelvis, and extremities. PET/PET skull to thigh SUBS [id number] IMPRESSION: In comparison with 08/22/2023 there is progressive disease with progressive and new discrete implants of peritoneal/omental carcinomatosis with no ascites. There is no metabolic response of liver metastasis and in the ill-defined abnormality along the left pelvic sidewall. Some of metastatic implants are fast growing with interval change in comparison with the recent exam on 04/22/2024. This includes liver metastasis in the segment 7 (increased in maximum craniocaudal span from 4.4 cm to about 8 cm) and peritoneal metastasis laterally to the spleen (increased from 2x 1 cm to 3 x 2 cm).
[2024-05-28 09:31] LABS: Basophils # 0.1 10^3/uL (0.0-0.1); Basophils % 0.7 %; Eosinophils # 0.3 10^3/uL (0.0-0.8); Eosinophils % 3.1 %; Hematocrit 41.3 % (37-53); Lymphocytes # 1.1 10^3/uL (0.8-4.8); Lymphocytes % 12.9 %; Mean Corpuscular Volume 83.8 fl (82-101); Mean Platelet Volume 10.5 fL (7.4-10.4); Monocytes # 0.7 10^3/uL (0.2-0.9); Monocytes % 7.6 %; Neutrophils % 75.1 %; Nucleated Red Blood Cells % 0 %; Platelet Count 286 10^3/cmm (157-399); Red Blood Count 4.93 10^6/uL (3.85-5.65); Red Cell Distribution Width 17.2 % (12.1-15.1); White Blood Count 8.66 10^3/uL (3.29-11.43)
[2024-05-28 09:51] LABS: Carcinoembryonic Antigen 2.1 ng/mL (0.0-4.7)
[2024-05-28 10:08] LABS: Alanine Aminotransferase 7 U/L (0-41); Albumin Level 3.5 g/dL (3.5-5.2); Alkaline Phosphatase 85 U/L (40-130); Aspartate Amino Transferase 10 U/L (0-40); Blood Urea Nitrogen 6 mg/dL (6-20); Calcium 8.8 mg/dL (8.5-10.5); Carbon Dioxide 25 mmol/L (22-29); Chloride 105 mmol/L (98-107); Glucose 90 mg/dL (65-115); Osmolality Calculated 287 mOsm/kg (285-295); Sodium 140 mmol/L (136-145); Total Bilirubin 0.6 mg/dL (0.15-1.2); Total Protein 6.5 g/dL (6.6-8.7)
[2024-05-28] MEDS: sodium chloride 0.9% 250 ML 75 ML IV (11:02)
[2024-05-28] MEDS: diphenhydrAMINE 50 mg/mL SDV 1mL 25 MG IVP (11:02)
[2024-05-28] MEDS: palonosetron 0.25 mg/5 mL SDV IVP (11:07)
[2024-05-28] MEDS: dexamethasone 4 mg/mL INJ 5 mL 12 MG IVP (11:09)
[2024-05-28] MEDS: PANITUMUMAB IV (11:28)
[2024-05-28] MEDS: SODIUM CHLORIDE 0.9% IV (11:28)
[2024-05-28] MEDS: atropine 1 mg/mL SDV 1 mL 0.4 MG IV (12:35)
[2024-05-28] MEDS: leucovorin 760 MG in dextrose 5% 250 ML 166.67 MG IV (12:39)
[2024-05-28] MEDS: irinotecan 300 MG, irinotecan 40 MG in dextrose 5% 250 ML 178 MG IV (12:40)
[2024-05-28] MEDS: FLUOROURACIL IV (14:43)
[2024-05-28] MEDS: ELASTOMERIC PUMP PUMP IV (14:43)
[2024-05-28 14:53] VITALS: BP 142/81; PULSE 62; RESP 18; TEMP 36.5; O2SAT 96
[2024-06-11 09:01] LABS: Basophils % 0.2 %; Eosinophils # 0.1 10^3/uL (0.0-0.8); Eosinophils % 0.6 %; Hematocrit 40.4 % (37-53); Lymphocytes # 0.8 10^3/uL (0.8-4.8); Lymphocytes % 7.1 %; Mean Corpuscular HGB Conc 30.4 g/dL (30-55); Mean Corpuscular Hemoglobin 25.4 pg (27-33); Mean Corpuscular Volume 83.5 fl (82-101); Mean Platelet Volume 10.7 fL (7.4-10.4); Monocytes # 0.5 10^3/uL (0.2-0.9); Monocytes % 4.3 %; Neutrophils # 9.71 10^3/uL (1.8-7.7); Neutrophils % 87.1 %; Nucleated Red Blood Cells % 0 %; Platelet Count 213 10^3/cmm (157-399); Red Blood Count 4.84 10^6/uL (3.85-5.65); Red Cell Distribution Width 18.1 % (12.1-15.1); White Blood Count 11.15 10^3/uL (3.29-11.43)
[2024-06-11 09:37] LABS: Alanine Aminotransferase 17 U/L (0-41); Albumin Level 3.6 g/dL (3.5-5.2); Alkaline Phosphatase 75 U/L (40-130); Anion Gap 12.4 (5-19); Aspartate Amino Transferase 12 U/L (0-40); Blood Urea Nitrogen 16 mg/dL (6-20); Calcium 8.3 mg/dL (8.5-10.5); Carbon Dioxide 23 mmol/L (22-29); Chloride 107 mmol/L (98-107); Globulin 2.3 g/dL (1.3-4.6); Glomerular Filtration Rate 99.6 mL/min (90-130); Glucose 108 mg/dL (65-115); Osmolality Calculated 290 mOsm/kg (285-295); Potassium 3.4 mmol/L (3.5-5.1); Sodium 139 mmol/L (136-145); Total Bilirubin 0.4 mg/dL (0.15-1.2); Total Protein 5.9 g/dL (6.6-8.7)
[2024-06-11] MEDS: sodium chloride 0.9% 250 ML 75 ML IV (10:21)
[2024-06-11] MEDS: palonosetron 0.25 mg/5 mL SDV IVP (10:23)
[2024-06-11] MEDS: dexamethasone 4 mg/mL INJ 5 mL 12 MG IVP (10:26)
[2024-06-11] MEDS: diphenhydrAMINE 50 mg/mL SDV 1mL 25 MG IVP (10:30)
[2024-06-11] MEDS: PANITUMUMAB IV (11:05)
[2024-06-11] MEDS: SODIUM CHLORIDE 0.9% IV (11:05)
[2024-06-11] MEDS: atropine 1 mg/mL SDV 1 mL 0.4 MG IV (12:15)
[2024-06-11] MEDS: leucovorin 760 MG in dextrose 5% 250 ML 166.67 MG IV (12:38)
[2024-06-11] MEDS: irinotecan 300 MG, irinotecan 40 MG in dextrose 5% 250 ML 178 MG IV (12:38)
[2024-06-11] MEDS: fluorouraciL 4,500 MG, elastomeric pump 1 PUMP in sodium chloride 0.9% (100 ml) 2 ML IV (14:29)
[2024-06-11 14:56] VITALS: BP 124/72; PULSE 67; RESP 17; TEMP 36.7; O2SAT 97
== END 2024-06-17 23:59 | disposition home or self-care (01) ==
PROVIDERS: Internal Medicine Medical Oncology; PCP Clinical Nurse Specialist Adult Health; Visit Provider Internal Medicine
DX: Z53.9 Procedure and treatment not carried out, unspecified reason; Z45.1 Encounter for adjustment and management of infusion pump
CPT/HCPCS: 78815; 80053; 82378; 85025; 96375; 96413; 96415; 96416; 96417; 96523; A4222; A9552; J0461; J0640; J1100; J1200; J2469; J7050; J7060; J9190; J9206; J9303

== ENCOUNTER 2024-07-11 11:30 | Oncology outpatient (recurring) (ONCR) | payer BC, SELFPAY ==
[2024-06-25 07:52] LABS: Basophils % 0.2 %; Hematocrit 42.7 % (37-53); Lymphocytes # 0.8 10^3/uL (0.8-4.8); Lymphocytes % 13.6 %; Mean Corpuscular Hemoglobin 25.8 pg (27-33); Mean Corpuscular Volume 86.1 fl (82-101); Mean Platelet Volume 10.9 fL (7.4-10.4); Monocytes # 0.2 10^3/uL (0.2-0.9); Monocytes % 4.2 %; Neutrophils # 4.58 10^3/uL (1.8-7.7); Neutrophils % 81.1 %; Nucleated Red Blood Cells % 0 %; Platelet Count 175 10^3/cmm (157-399); Red Blood Count 4.96 10^6/uL (3.85-5.65); Red Cell Distribution Width 19.8 % (12.1-15.1); White Blood Count 5.65 10^3/uL (3.29-11.43)
[2024-06-25 08:16] LABS: Carcinoembryonic Antigen 2.2 ng/mL (0.0-4.7)
[2024-06-25 08:29] LABS: Alanine Aminotransferase 23 U/L (0-41); Albumin Level 3.8 g/dL (3.5-5.2); Alkaline Phosphatase 72 U/L (40-130); Anion Gap 15.2 (5-19); Aspartate Amino Transferase 12 U/L (0-40); Blood Urea Nitrogen 15 mg/dL (6-20); Calcium 8.6 mg/dL (8.5-10.5); Carbon Dioxide 23 mmol/L (22-29); Chloride 107 mmol/L (98-107); Creatinine Clr Calc Pharmacy 89.2358; Globulin 2.4 g/dL (1.3-4.6); Glucose 106 mg/dL (65-115); Osmolality Calculated 293 mOsm/kg (285-295); Potassium 4.2 mmol/L (3.5-5.1); Sodium 141 mmol/L (136-145); Total Bilirubin 0.6 mg/dL (0.15-1.2); Total Protein 6.2 g/dL (6.6-8.7)
[2024-06-25] MEDS: sodium chloride 0.9% 250 ML 75 ML IV (09:25)
[2024-06-25] MEDS: palonosetron 0.25 mg/5 mL SDV IVP (09:26)
[2024-06-25] MEDS: dexamethasone 4 mg/mL INJ 5 mL 12 MG IVP (09:31)
[2024-06-25] MEDS: diphenhydrAMINE 50 mg/mL SDV 1mL 25 MG IVP (09:32)
[2024-06-25] MEDS: PANITUMUMAB IV (09:51)
[2024-06-25] MEDS: SODIUM CHLORIDE 0.9% IV (09:51)
[2024-06-25] MEDS: atropine 1 mg/mL SDV 1 mL 0.4 MG IV (11:03)
[2024-06-25] MEDS: irinotecan 300 MG, irinotecan 40 MG in dextrose 5% 250 ML 178 MG IV (11:15)
[2024-06-25] MEDS: leucovorin 760 MG in dextrose 5% 250 ML 166.67 MG IV (11:15)
[2024-06-25 13:09] VITALS: BP 124/74; PULSE 55; RESP 17; TEMP 36.3; O2SAT 96
[2024-06-25] MEDS: ELASTOMERIC PUMP PUMP IV (13:11)
[2024-06-25] MEDS: FLUOROURACIL IV (13:11)
[2024-07-09 07:51] LABS: Basophils % 0.4 %; Eosinophils % 0.8 %; Hematocrit 41.4 % (37-53); Lymphocytes # 1.4 10^3/uL (0.8-4.8); Lymphocytes % 27.6 %; Mean Corpuscular HGB Conc 30.4 g/dL (30-55); Mean Corpuscular Hemoglobin 26.3 pg (27-33); Mean Corpuscular Volume 86.3 fl (82-101); Mean Platelet Volume 10.4 fL (7.4-10.4); Monocytes # 0.5 10^3/uL (0.2-0.9); Monocytes % 8.7 %; Neutrophils # 3.16 10^3/uL (1.8-7.7); Nucleated Red Blood Cells % 0.4 %; Platelet Count 206 10^3/cmm (157-399); Red Cell Distribution Width 19.5 % (12.1-15.1); White Blood Count 5.18 10^3/uL (3.29-11.43)
[2024-07-09 08:20] LABS: Carcinoembryonic Antigen 2.4 ng/mL (0.0-4.7)
[2024-07-09 08:31] LABS: Alanine Aminotransferase 24 U/L (0-41); Albumin Level 3.7 g/dL (3.5-5.2); Alkaline Phosphatase 67 U/L (40-130); Anion Gap 13.6 (5-19); Aspartate Amino Transferase 15 U/L (0-40); Blood Urea Nitrogen 12 mg/dL (6-20); Calcium 8.4 mg/dL (8.5-10.5); Carbon Dioxide 26 mmol/L (22-29); Chloride 111 mmol/L (98-107); Creatinine Clr Calc Pharmacy 89.2358; Globulin 2.1 g/dL (1.3-4.6); Glucose 79 mg/dL (65-115); Osmolality Calculated 303 mOsm/kg (285-295); Potassium 3.6 mmol/L (3.5-5.1); Sodium 147 mmol/L (136-145); Total Bilirubin 0.4 mg/dL (0.15-1.2); Total Protein 5.8 g/dL (6.6-8.7)
[2024-07-09] MEDS: dextrose 5% 250 ML 75 ML IV (09:40)
[2024-07-09] MEDS: dexamethasone 4 mg/mL INJ 5 mL 12 MG IVP (09:41)
[2024-07-09] MEDS: diphenhydrAMINE 50 mg/mL SDV 1mL 25 MG IVP (09:47)
[2024-07-09] MEDS: palonosetron 0.25 mg/5 mL SDV IVP (09:51)
[2024-07-09] MEDS: PANITUMUMAB IV (10:17)
[2024-07-09] MEDS: SODIUM CHLORIDE 0.9% IV (10:17)
[2024-07-09] MEDS: atropine 1 mg/mL SDV 1 mL 0.4 MG IV (11:21)
[2024-07-09] MEDS: leucovorin 760 MG in dextrose 5% 250 ML 166.67 MG IV (11:39)
[2024-07-09] MEDS: irinotecan 300 MG, irinotecan 40 MG in dextrose 5% 250 ML 178 MG IV (11:40)
[2024-07-09] MEDS: FLUOROURACIL IV (13:26)
[2024-07-09] MEDS: ELASTOMERIC PUMP PUMP IV (13:26)
[2024-07-09 13:35] VITALS: BP 134/77; PULSE 51; RESP 16; TEMP 36.3; O2SAT 100
== END 2024-07-17 23:59 | disposition home or self-care (01) ==
PROVIDERS: Nurse Practitioner Family; PCP Clinical Nurse Specialist Adult Health; Visit Provider Internal Medicine Medical Oncology
DX: Z45.1 Encounter for adjustment and management of infusion pump; Z53.9 Procedure and treatment not carried out, unspecified reason
CPT/HCPCS: 80053; 82378; 85025; 96368; 96375; 96413; 96415; 96416; 96417; 96523; A4222; J0461; J0640; J1100; J1200; J2469; J7050; J7060; J9190; J9206; J9303

== ENCOUNTER 2024-08-13 09:00 | Oncology outpatient (recurring) (ONCR) | payer BC, SELFPAY ==
[2024-07-23 08:11] LABS: Basophils % 0.4 %; Eosinophils % 0.4 %; Hematocrit 43.4 % (37-53); Lymphocytes # 1.4 10^3/uL (0.8-4.8); Lymphocytes % 19.9 %; Mean Corpuscular HGB Conc 30.2 g/dL (30-55); Mean Corpuscular Hemoglobin 25.9 pg (27-33); Mean Corpuscular Volume 85.9 fl (82-101); Monocytes # 0.6 10^3/uL (0.2-0.9); Monocytes % 8.8 %; Neutrophils # 4.99 10^3/uL (1.8-7.7); Neutrophils % 69.4 %; Nucleated Red Blood Cells % 0.4 %; Platelet Count 192 10^3/cmm (157-399); Red Blood Count 5.05 10^6/uL (3.85-5.65); Red Cell Distribution Width 20.2 % (12.1-15.1); White Blood Count 7.19 10^3/uL (3.29-11.43)
[2024-07-23 08:39] LABS: Carcinoembryonic Antigen 2.4 ng/mL (0.0-4.7)
[2024-07-23 08:50] LABS: Alanine Aminotransferase 26 U/L (0-41); Albumin Level 3.7 g/dL (3.5-5.2); Alkaline Phosphatase 63 U/L (40-130); Anion Gap 14.7 (5-19); Aspartate Amino Transferase 12 U/L (0-40); Blood Urea Nitrogen 14 mg/dL (6-20); Calcium 8.6 mg/dL (8.5-10.5); Carbon Dioxide 25 mmol/L (22-29); Chloride 107 mmol/L (98-107); Globulin 2.1 g/dL (1.3-4.6); Glucose 85 mg/dL (65-115); Osmolality Calculated 296 mOsm/kg (285-295); Potassium 3.7 mmol/L (3.5-5.1); Sodium 143 mmol/L (136-145); Total Bilirubin 0.6 mg/dL (0.15-1.2); Total Protein 5.8 g/dL (6.6-8.7)
[2024-07-23 08:55] VITALS: BP 141/83; PULSE 48; TEMP 36.2; O2SAT 99
[2024-07-23] MEDS: dextrose 5% 250 ML 75 ML IV (10:07)
[2024-07-23] MEDS: dexamethasone 4 mg/mL INJ 5 mL 12 MG IVP (10:10)
[2024-07-23] MEDS: palonosetron 0.25 mg/5 mL SDV IVP (10:15)
[2024-07-23] MEDS: diphenhydrAMINE 50 mg/mL SDV 1mL 25 MG IVP (10:18)
[2024-07-23] MEDS: SODIUM CHLORIDE 0.9% IV (10:43)
[2024-07-23] MEDS: PANITUMUMAB IV (10:43)
[2024-07-23] MEDS: leucovorin 760 MG in dextrose 5% 250 ML 166.67 MG IV (11:48)
[2024-07-23] MEDS: irinotecan 300 MG, irinotecan 40 MG in dextrose 5% 250 ML 178 MG IV (11:48)
[2024-07-23] MEDS: atropine 1 mg/mL SDV 1 mL 0.4 MG IV (11:49)
[2024-07-23] MEDS: fluorouraciL 4,550 MG in elastomeric pump 1 PUMP IV (14:01)
[2024-07-23 14:08] VITALS: BP 129/71; PULSE 54; RESP 17; TEMP 35.7; O2SAT 99
[2024-08-13 09:25] LABS: Basophils % 0.6 %; Eosinophils # 0.1 10^3/uL (0.0-0.8); Eosinophils % 0.8 %; Hematocrit 43.5 % (37-53); Lymphocytes # 1.4 10^3/uL (0.8-4.8); Lymphocytes % 21.4 %; Mean Corpuscular HGB Conc 30.1 g/dL (30-55); Mean Corpuscular Hemoglobin 25.6 pg (27-33); Mean Platelet Volume 10.2 fL (7.4-10.4); Monocytes # 0.6 10^3/uL (0.2-0.9); Monocytes % 9.3 %; Neutrophils # 4.04 10^3/uL (1.8-7.7); Neutrophils % 62.8 %; Nucleated Red Blood Cells % 0.3 %; Platelet Count 281 10^3/cmm (157-399); Red Blood Count 5.12 10^6/uL (3.85-5.65); Red Cell Distribution Width 19.1 % (12.1-15.1); White Blood Count 6.44 10^3/uL (3.29-11.43)
[2024-08-13 09:38] LABS: Alanine Aminotransferase 18 U/L (0-41); Albumin Level 3.4 g/dL (3.5-5.2); Alkaline Phosphatase 70 U/L (40-130); Anion Gap 12.8 (5-19); Aspartate Amino Transferase 11 U/L (0-40); Blood Urea Nitrogen 9 mg/dL (6-20); Calcium 8.8 mg/dL (8.5-10.5); Carbon Dioxide 26 mmol/L (22-29); Chloride 105 mmol/L (98-107); Creatinine Clr Calc Pharmacy 80.5215; Globulin 2.5 g/dL (1.3-4.6); Glucose 85 mg/dL (65-115); Osmolality Calculated 288 mOsm/kg (285-295); Potassium 3.8 mmol/L (3.5-5.1); Sodium 140 mmol/L (136-145); Total Bilirubin 0.4 mg/dL (0.15-1.2); Total Protein 5.9 g/dL (6.6-8.7)
[2024-08-13 09:53] LABS: Slide Review Slide Review Perform
[2024-08-13] MEDS: sodium chloride 0.9% 250 ML 75 ML IV (11:01)
[2024-08-13] MEDS: palonosetron 0.25 mg/5 mL SDV IVP (11:04)
[2024-08-13] MEDS: dexamethasone 4 mg/mL INJ 5 mL 12 MG IVP (11:06)
[2024-08-13 11:28] LABS: Carcinoembryonic Antigen 2.5 ng/mL (0.0-4.7)
[2024-08-13] MEDS: diphenhydrAMINE 50 mg/mL SDV 1mL 25 MG IVP (11:29)
[2024-08-13] MEDS: SODIUM CHLORIDE 0.9% IV (11:46)
[2024-08-13] MEDS: PANITUMUMAB IV (11:46)
[2024-08-13] MEDS: atropine 1 mg/mL SDV 1 mL 0.4 MG IV (13:07)
[2024-08-13] MEDS: irinotecan 300 MG, irinotecan 40 MG in dextrose 5% 250 ML 178 MG IV (13:10)
[2024-08-13] MEDS: leucovorin 760 MG in dextrose 5% 250 ML 166.67 MG IV (13:11)
[2024-08-13] MEDS: fluorouraciL 4,550 MG, elastomeric pump 1 PUMP in sodium chloride 0.9% (100 ml) 1 ML IV (15:06)
[2024-08-13 15:40] VITALS: BP 124/78; PULSE 78; RESP 17; RESP 18; TEMP 36.4; TEMP 36.6; O2SAT 98
--- NOTE | 2024-08-13 17:00 | PC.NURSE ---
Patient was instructed of the flushes and heparin flush with discontinuing his 5FU .mm
== END 2024-08-17 23:59 | disposition home or self-care (01) ==
PROVIDERS: Nurse Practitioner Family; PCP Family Medicine; Visit Provider Internal Medicine Medical Oncology
DX: Z53.9 Procedure and treatment not carried out, unspecified reason; Z51.11 Encounter for antineoplastic chemotherapy; C20 Malignant neoplasm of rectum; Z79.631 Long term (current) use of antimetabolite agent; Z79.52 Long term (current) use of systemic steroids; Z79.899 Other long term (current) drug therapy
CPT/HCPCS: 80053; 82378; 85025; 96368; 96375; 96413; 96415; 96416; 96417; 96523; A4222; J0461; J0640; J1100; J1200; J2469; J7050; J7060; J9190; J9206; J9303

== ENCOUNTER 2024-09-05 09:37 | Oncology outpatient (recurring) (ONCR) | payer BC, SELFPAY ==
--- NOTE | 2024-08-30 08:00 | PETR_ITS ---
PROCEDURE INFORMATION: Exam: PET/CT Skull Base to Mid-thigh Exam date and time: 08/30/2024 9:04 AM Age: 58 years old Clinical indication: Condition or disease; Primary cancer: Adenocarcinoma of rectum; Follow-up oncological assessment; Additional info: Adenocarcinoma of rectum, Dr. Jones would like this on 08/23/24 LABS AND CLINICAL REPORTS: Glucose: 109 mg/dl Treatment strategy for malignancy (PET staging): Restaging (PS) TECHNIQUE: Imaging protocol: Following at least four-hour fasting and following the injection of radiopharmaceutical, low dose CT images were obtained. Then, PET images were obtained. Attenuation corrected images were constructed using the CT scan. Fused images of PET and CT were reviewed. The standardized uptake values (SUV) reported below are maximum values within a region of interest, expressed in gm/ml. Exam includes orbital meatal line to mid-thigh. SUV normalization method: BodyWeight Radiopharmaceutical: 11.09 mCi F-18 FDG (Fluorodeoxyglucose), IV. Time of imaging post radiopharmaceutical administration: 45 minutes Injection site: LAC COMPARISON: PT PET skull to thigh SUBS [id number] 05/24/2024 12:41 PM FINDINGS: Tubes, catheters and devices: Left chest port terminates near the superior cavoatrial junction. Brain: Visualized brain has normal physiologic uptake. Pharynx: No abnormal uptake. Larynx: No abnormal uptake. Lungs, pleura and trachea: No abnormal uptake. Right lung calcified granulomata. Right middle lobe platelike atelectasis versus scarring. No consolidation or mass. Heart: Normal physiologic uptake. Mediastinal space: No abnormal uptake. Liver: Decreased posterior right hepatic hypodense metastasis measuring approximately 4 x 2 cm on axial image 134 with SUV max 10.6, previously 5.4 x 3.2 cm with SUV max 11.4. More inferior right hepatic/perihepatic FDG avid thickening shows stable CT appearance with SUV max 16.1 on axial image 155, previously 14.5. Additional FDG avid focus at the more lateral right lower lobe has resolved. Gallbladder and biliary ducts: No abnormal uptake. Cholelithiasis. Pancreas: No abnormal uptake. Spleen: No abnormal uptake. Adrenal glands: No abnormal uptake. Kidneys and ureters: Normal physiologic uptake. Stomach and bowel: Stable postsurgical change with left abdominal colostomy and Patterson pouch with nearby similar FDG-avid irregular thickening showing SUV max 8.8 on axial image 224, previously 16.9. Intraperitoneal and retroperitoneal spaces: Decreased lateral perisplenic FDG avid nodular thickening measures approximately 1.7 cm on axial image 128 with SUV max 6.9, previously 2.9 cm with SUV max 15.5. Decreased size inferior perisplenic FDG avid focus measures 0.7 cm on axial image 154 and shows SUV max 12.5, previously 1.6 cm with SUV max 9.2. Stable FDG avid subcentimeter peritoneal deposit more centrally measuring 0.8 cm on axial image 154 with SUV max 9.0, previously 11.3. Stable subcentimeter FDG avid peritoneal deposit at the lateral right abdomen on axial image 149. Multiple additional FDG avid peritoneal deposits have resolved or nearly resolved with minimal residual uptake. Vasculature: No abnormal uptake. Lymph nodes: No abnormal uptake. No lymphadenopathy in the head, neck, chest, abdomen, pelvis, and extremities. Skeleton: No abnormal uptake in the visualized axial and appendicular skeleton. Mild degenerative change along the spine and sacroiliac joints. Soft tissues: No abnormal uptake in the visualized head, neck, chest, abdomen, pelvis, and extremities. Rectus diastasis. METRICS: Mediastinal blood pool: SUV mean 2.1 Liver uptake: SUV mean 2.4 PET/PET skull to thigh SUBS [id number] IMPRESSION: Overall decreased hepatic and peritoneal metastases. Apparent mild increased uptake at couple sites likely on the basis of interexam variability or possibly posttreatment inflammatory response, difficult to entirely exclude mild worsening.
[2024-09-03 09:41] LABS: Basophils % 0.3 %; Eosinophils # 0.1 10^3/uL (0.0-0.8); Eosinophils % 1.3 %; Hematocrit 41.7 % (37-53); Lymphocytes # 1.3 10^3/uL (0.8-4.8); Lymphocytes % 20.6 %; Mean Corpuscular HGB Conc 30.7 g/dL (30-55); Mean Corpuscular Hemoglobin 26.2 pg (27-33); Mean Corpuscular Volume 85.3 fl (82-101); Monocytes # 0.6 10^3/uL (0.2-0.9); Monocytes % 9.6 %; Neutrophils # 4.01 10^3/uL (1.8-7.7); Neutrophils % 66.2 %; Nucleated Red Blood Cells % 0 %; Platelet Count 220 10^3/cmm (157-399); Red Blood Count 4.89 10^6/uL (3.85-5.65); Red Cell Distribution Width 19.1 % (12.1-15.1); White Blood Count 6.06 10^3/uL (3.29-11.43)
[2024-09-03 10:10] LABS: Carcinoembryonic Antigen 2.8 ng/mL (0.0-4.7)
[2024-09-03 10:21] LABS: Alanine Aminotransferase 26 U/L (0-41); Albumin Level 3.5 g/dL (3.5-5.2); Alkaline Phosphatase 68 U/L (40-130); Anion Gap 15.7 (5-19); Aspartate Amino Transferase 13 U/L (0-40); Blood Urea Nitrogen 15 mg/dL (6-20); Calcium 8.9 mg/dL (8.5-10.5); Carbon Dioxide 24 mmol/L (22-29); Chloride 108 mmol/L (98-107); Globulin 2.4 g/dL (1.3-4.6); Glucose 77 mg/dL (65-115); Osmolality Calculated 298 mOsm/kg (285-295); Potassium 3.7 mmol/L (3.5-5.1); Sodium 144 mmol/L (136-145); Total Protein 5.9 g/dL (6.6-8.7)
[2024-09-03 11:38] LABS: Total Bilirubin 0.4 mg/dL (0.15-1.2)
[2024-09-03] MEDS: sodium chloride 0.9% 250 ML 75 ML IV (11:48)
[2024-09-03] MEDS: diphenhydrAMINE 50 mg/mL SDV 1mL 25 MG IVP (11:52)
[2024-09-03] MEDS: palonosetron 0.25 mg/5 mL SDV IVP (11:58)
[2024-09-03] MEDS: dexamethasone 4 mg/mL INJ 5 mL 12 MG IVP (12:01)
[2024-09-03] MEDS: PANITUMUMAB IV (12:42)
[2024-09-03] MEDS: SODIUM CHLORIDE 0.9% IV (12:42)
[2024-09-03] MEDS: atropine 1 mg/mL SDV 1 mL 0.4 MG IV (13:51)
[2024-09-03] MEDS: leucovorin 760 MG in dextrose 5% 250 ML 166.67 MG IV (14:03)
[2024-09-03] MEDS: irinotecan 300 MG, irinotecan 10 MG in dextrose 5% 250 ML 177 MG IV (14:03)
[2024-09-03] MEDS: fluorouraciL 4,550 MG in elastomeric pump 1 PUMP IV (16:00)
== END 2024-09-16 23:59 | disposition home or self-care (01) ==
PROVIDERS: Nurse Practitioner Family; PCP Family Medicine; Visit Provider Internal Medicine Medical Oncology
DX: C20 Malignant neoplasm of rectum; Z45.2 Encounter for adjustment and management of vascular access device; Z53.9 Procedure and treatment not carried out, unspecified reason
CPT/HCPCS: 78815; 80053; 82378; 85025; 96368; 96375; 96413; 96415; 96416; 96417; 96523; A4222; A9552; J0461; J0640; J1100; J1200; J2469; J7050; J7060; J9190; J9206; J9303

== ENCOUNTER 2024-10-17 13:15 | Oncology outpatient (recurring) (ONCR) | payer BC, SELFPAY ==
[2024-09-17 10:27] LABS: Hematocrit 43.4 % (37-53); Hemoglobin 13.40 g/dL (11.27-16.99); Mean Corpuscular HGB Conc 30.9 g/dL (30-55); Mean Corpuscular Hemoglobin 26.4 pg (27-33); Mean Corpuscular Volume 85.6 fl (82-101); Nucleated Red Blood Cells % 0 %; Platelet Count 137 10^3/cmm (157-399); Red Blood Count 5.07 10^6/uL (3.85-5.65); White Blood Count 9.00 10^3/uL (3.29-11.43)
[2024-09-17 10:52] LABS: Carcinoembryonic Antigen 2.6 ng/mL (0.0-4.7)
[2024-09-17 11:03] LABS: Alanine Aminotransferase 23 U/L (0-41); Albumin Level 3.5 g/dL (3.5-5.2); Alkaline Phosphatase 68 U/L (40-130); Anion Gap 15.0 (5-19); Aspartate Amino Transferase 13 U/L (0-40); Blood Urea Nitrogen 9 mg/dL (6-20); Calcium 8.9 mg/dL (8.5-10.5); Carbon Dioxide 25 mmol/L (22-29); Chloride 104 mmol/L (98-107); Creatinine Clr Calc Pharmacy 89.4684; Globulin 2.6 g/dL (1.3-4.6); Glucose 127 mg/dL (65-115); Osmolality Calculated 290 mOsm/kg (285-295); Potassium 4.0 mmol/L (3.5-5.1); Sodium 140 mmol/L (136-145); Total Protein 6.1 g/dL (6.6-8.7)
[2024-09-17] MEDS: diphenhydrAMINE 50 mg/mL SDV 1mL 25 MG IVP (11:38)
[2024-09-17] MEDS: dexamethasone 4 mg/mL INJ 5 mL 12 MG IVP (11:47)
[2024-09-17] MEDS: PANITUMUMAB IV (12:16)
[2024-09-17] MEDS: SODIUM CHLORIDE 0.9% IV (12:16)
[2024-09-17] MEDS: atropine 1 mg/mL SDV 1 mL 0.4 MG IV (13:26)
[2024-09-17] MEDS: leucovorin 760 MG in dextrose 5% 250 ML 166.67 MG IV (13:40)
[2024-09-17] MEDS: irinotecan 300 MG, irinotecan 10 MG in dextrose 5% 250 ML 177 MG IV (13:40)
[2024-09-17 15:35] VITALS: BP 124/68; PULSE 60; RESP 18; TEMP 36.6; O2SAT 97
[2024-09-17] MEDS: fluorouraciL 4,550 MG in elastomeric pump 1 PUMP IV (15:35)
[2024-10-01 09:52] LABS: Hematocrit 40.5 % (37-53); Hemoglobin 12.50 g/dL (11.27-16.99); Mean Corpuscular HGB Conc 30.9 g/dL (30-55); Mean Corpuscular Hemoglobin 26.3 pg (27-33); Mean Corpuscular Volume 85.3 fl (82-101); Nucleated Red Blood Cells % 0.3 %; Platelet Count 178 10^3/cmm (157-399); Red Blood Count 4.75 10^6/uL (3.85-5.65); White Blood Count 6.25 10^3/uL (3.29-11.43)
[2024-10-01 10:18] LABS: Carcinoembryonic Antigen 2.6 ng/mL (0.0-4.7)
[2024-10-01 10:29] LABS: Alanine Aminotransferase 23 U/L (0-41); Albumin Level 3.3 g/dL (3.5-5.2); Alkaline Phosphatase 55 U/L (40-130); Anion Gap 15.5 (5-19); Aspartate Amino Transferase 14 U/L (0-40); Blood Urea Nitrogen 9 mg/dL (6-20); Calcium 8.5 mg/dL (8.5-10.5); Carbon Dioxide 24 mmol/L (22-29); Chloride 104 mmol/L (98-107); Creatinine Clr Calc Pharmacy 89.7010; Globulin 2.3 g/dL (1.3-4.6); Glucose 93 mg/dL (65-115); Osmolality Calculated 288 mOsm/kg (285-295); Potassium 3.5 mmol/L (3.5-5.1); Sodium 140 mmol/L (136-145); Total Protein 5.6 g/dL (6.6-8.7)
[2024-10-01] MEDS: diphenhydrAMINE 50 mg/mL SDV 1mL 25 MG IVP (11:36)
[2024-10-01] MEDS: dexamethasone 4 mg/mL INJ 5 mL 12 MG IVP (11:44)
[2024-10-01] MEDS: SODIUM CHLORIDE 0.9% IV (12:11)
[2024-10-01] MEDS: PANITUMUMAB IV (12:11)
[2024-10-01] MEDS: atropine 1 mg/mL SDV 1 mL 0.4 MG IV (13:22)
[2024-10-01] MEDS: irinotecan 300 MG, irinotecan 10 MG in dextrose 5% 250 ML 177 MG IV (13:38)
[2024-10-01] MEDS: leucovorin 760 MG in dextrose 5% 250 ML 166.67 MG IV (13:38)
[2024-10-01] MEDS: fluorouraciL 4,550 MG in elastomeric pump 1 PUMP IV (15:13)
[2024-10-15 10:26] LABS: Hematocrit 40.6 % (37-53); Hemoglobin 12.70 g/dL (11.27-16.99); Mean Corpuscular HGB Conc 31.3 g/dL (30-55); Mean Corpuscular Hemoglobin 27.3 pg (27-33); Mean Corpuscular Volume 87.3 fl (82-101); Nucleated Red Blood Cells % 0.7 %; Platelet Count 133 10^3/cmm (157-399); Red Blood Count 4.65 10^6/uL (3.85-5.65); White Blood Count 7.15 10^3/uL (3.29-11.43)
[2024-10-15 10:52] LABS: Carcinoembryonic Antigen 3.0 ng/mL (0.0-4.7)
[2024-10-15 11:03] LABS: Alanine Aminotransferase 28 U/L (0-41); Albumin Level 3.3 g/dL (3.5-5.2); Alkaline Phosphatase 61 U/L (40-130); Anion Gap 16.3 (5-19); Aspartate Amino Transferase 14 U/L (0-40); Blood Urea Nitrogen 9 mg/dL (6-20); Calcium 8.4 mg/dL (8.5-10.5); Carbon Dioxide 24 mmol/L (22-29); Chloride 106 mmol/L (98-107); Creatinine Clr Calc Pharmacy 89.9331; Globulin 2.1 g/dL (1.3-4.6); Glucose 109 mg/dL (65-115); Osmolality Calculated 295 mOsm/kg (285-295); Potassium 3.3 mmol/L (3.5-5.1); Sodium 143 mmol/L (136-145); Total Protein 5.4 g/dL (6.6-8.7)
[2024-10-15] MEDS: diphenhydrAMINE 50 mg/mL SDV 1mL 25 MG IVP (11:36)
[2024-10-15] MEDS: dexamethasone 4 mg/mL INJ 5 mL 12 MG IVP (11:40)
[2024-10-15] MEDS: PANITUMUMAB IV (11:50)
[2024-10-15] MEDS: SODIUM CHLORIDE 0.9% IV (11:50)
[2024-10-15] MEDS: atropine 1 mg/mL SDV 1 mL 0.4 MG IV (13:03)
[2024-10-15] MEDS: leucovorin 760 MG in dextrose 5% 250 ML 166.67 MG IV (13:09)
[2024-10-15] MEDS: irinotecan 300 MG, irinotecan 10 MG in dextrose 5% 250 ML 177 MG IV (13:10)
[2024-10-15] MEDS: fluorouraciL 4,550 MG in elastomeric pump 1 PUMP IV (14:51)
[2024-10-15 14:57] VITALS: BP 133/79; PULSE 55; O2SAT 99
== END 2024-10-17 23:59 | disposition home or self-care (01) ==
PROVIDERS: Nurse Practitioner Family; PCP Family Medicine; Visit Provider Internal Medicine Medical Oncology
DX: Z53.9 Procedure and treatment not carried out, unspecified reason (principal); Z45.1 Encounter for adjustment and management of infusion pump
CPT/HCPCS: 80053; 82378; 85025; 96368; 96375; 96411; 96413; 96415; 96416; 96417; 96523; A4222; J0461; J0640; J1100; J1200; J2469; J7050; J7060; J9190; J9206; J9303

== ENCOUNTER 2024-11-13 11:02 | Oncology outpatient (recurring) (ONCR) | payer BC, SELFPAY ==
[2024-10-29 08:37] LABS: Hematocrit 41.0 % (37-53); Hemoglobin 12.60 g/dL (11.27-16.99); Mean Corpuscular HGB Conc 30.7 g/dL (30-55); Mean Corpuscular Hemoglobin 26.2 pg (27-33); Mean Corpuscular Volume 85.2 fl (82-101); Nucleated Red Blood Cells % 0.5 %; Platelet Count 172 10^3/cmm (157-399); Red Blood Count 4.81 10^6/uL (3.85-5.65); White Blood Count 5.63 10^3/uL (3.29-11.43)
[2024-10-29 09:04] LABS: Carcinoembryonic Antigen 3.0 ng/mL (0.0-4.7)
[2024-10-29 09:16] LABS: Alanine Aminotransferase 31 U/L (0-41); Albumin Level 3.4 g/dL (3.5-5.2); Alkaline Phosphatase 63 U/L (40-130); Anion Gap 12.6 (5-19); Aspartate Amino Transferase 14 U/L (0-40); Blood Urea Nitrogen 8 mg/dL (6-20); Calcium 8.4 mg/dL (8.5-10.5); Carbon Dioxide 25 mmol/L (22-29); Chloride 107 mmol/L (98-107); Globulin 2.2 g/dL (1.3-4.6); Glucose 94 mg/dL (65-115); Osmolality Calculated 290 mOsm/kg (285-295); Potassium 3.6 mmol/L (3.5-5.1); Sodium 141 mmol/L (136-145); Total Protein 5.6 g/dL (6.6-8.7)
[2024-10-29] MEDS: dexamethasone 4 mg/mL INJ 5 mL 12 MG IVP (10:07)
[2024-10-29] MEDS: diphenhydrAMINE 50 mg/mL SDV 1mL 25 MG IVP (10:17)
[2024-10-29] MEDS: SODIUM CHLORIDE 0.9% IV (11:10)
[2024-10-29] MEDS: PANITUMUMAB IV (11:10)
[2024-10-29] MEDS: atropine 1 mg/mL SDV 1 mL 0.4 MG IV (12:22)
[2024-10-29] MEDS: DEXTROSE 5% IV (12:38)
[2024-10-29] MEDS: IRINOTECAN IV (12:38)
[2024-10-29] MEDS: leucovorin 760 MG in dextrose 5% 250 ML 166.67 MG IV (12:38)
[2024-10-29] MEDS: fluorouraciL 4,550 MG in elastomeric pump 1 PUMP IV (14:33)
[2024-10-29 14:40] VITALS: BP 129/82; PULSE 61; RESP 16; TEMP 36; O2SAT 97
[2024-11-11 08:53] LABS: Hematocrit 43.6 % (37-53); Hemoglobin 13.80 g/dL (11.27-16.99); Mean Corpuscular HGB Conc 31.7 g/dL (30-55); Mean Corpuscular Hemoglobin 26.6 pg (27-33); Mean Corpuscular Volume 84.2 fl (82-101); Nucleated Red Blood Cells % 0.3 %; Platelet Count 143 10^3/cmm (157-399); Red Blood Count 5.18 10^6/uL (3.85-5.65); White Blood Count 6.69 10^3/uL (3.29-11.43)
[2024-11-11 09:18] LABS: Carcinoembryonic Antigen 3.8 ng/mL (0.0-4.7)
[2024-11-11 09:29] LABS: Alanine Aminotransferase 39 U/L (0-41); Albumin Level 3.4 g/dL (3.5-5.2); Alkaline Phosphatase 71 U/L (40-130); Anion Gap 16.2 (5-19); Aspartate Amino Transferase 24 U/L (0-40); Blood Urea Nitrogen 9 mg/dL (6-20); Calcium 8.4 mg/dL (8.5-10.5); Carbon Dioxide 23 mmol/L (22-29); Chloride 102 mmol/L (98-107); Creatinine Clr Calc Pharmacy 80.5215; Globulin 2.4 g/dL (1.3-4.6); Glucose 138 mg/dL (65-115); Osmolality Calculated 287 mOsm/kg (285-295); Potassium 3.2 mmol/L (3.5-5.1); Sodium 138 mmol/L (136-145); Total Protein 5.8 g/dL (6.6-8.7)
[2024-11-11] MEDS: lidocaine 1% 5 ML in potassium chloride premix 100 ML 52.5 ML IV (10:40)
[2024-11-11] MEDS: dexamethasone 4 mg/mL INJ 5 mL 12 MG IVP (10:43)
[2024-11-11] MEDS: diphenhydrAMINE 50 mg/mL SDV 1mL 25 MG IVP (10:44)
[2024-11-11] MEDS: PANITUMUMAB IV (12:00)
[2024-11-11] MEDS: SODIUM CHLORIDE 0.9% IV (12:00)
[2024-11-11] MEDS: atropine 1 mg/mL SDV 1 mL 0.4 MG IV (13:16)
[2024-11-11] MEDS: IRINOTECAN IV (13:17)
[2024-11-11] MEDS: leucovorin 760 MG in dextrose 5% 250 ML 166.67 MG IV (13:17)
[2024-11-11] MEDS: DEXTROSE 5% IV (13:17)
[2024-11-11] MEDS: fluorouraciL 4,550 MG in elastomeric pump 1 PUMP IV (15:11)
[2024-11-11 15:17] VITALS: BP 110/71; PULSE 77; RESP 16; TEMP 35.9; O2SAT 93
== END 2024-11-17 23:59 | disposition home or self-care (01) ==
PROVIDERS: PCP Family Medicine; Visit Provider Internal Medicine Medical Oncology
DX: Z53.9 Procedure and treatment not carried out, unspecified reason; Z45.1 Encounter for adjustment and management of infusion pump
CPT/HCPCS: 80053; 82378; 85025; 96366; 96368; 96375; 96413; 96415; 96416; 96417; 96523; A4222; J0461; J0640; J1100; J1200; J2469; J3480; J7050; J7060; J9190; J9206; J9303; J9999

== ENCOUNTER 2024-12-01 20:33 | Emergency (ER) | payer BC, SELFPAY ==
--- OUTSIDE RECORDS SUMMARY | 2018-01-22 08:57 | XMS_ITS | Continuity of Care Document ---
Author Organization [facility] Address [address] [place] [address] Phone Care Team Providers Care Electricians Top Helper Name Role Phone Charlie Serjio Unavailable Unavailable Allergies, Adverse Reactions, Alerts Substance Reaction Status Criticality Sulfa (Sulfonamide Antibiotics) Unknown Active No Information aspirin Unknown Active No Information Medications Medication Instructions Dosage Effective Dates (start - stop) Status Comments Flonase Allergy Relief 50 mcg/actuation nasal spray,suspension inhale 2 spray by intranasal route every day in each nostril 100 MCG - Active Procedures Procedure Date OFFICE/OUTPATIENT VISIT, [facility] OFFICE/OUTPATIENT VISIT, [facility] CHIROPRACTIC MANIPULATION Advance Directives Directive Yes / No Effective Date File Name No Information Encounters Encounter Description Practice Location Reason(s) For Visit Diagnoses Date Provider Providers Copied on Encounter [facility], [address] [place] [address], [id number], tel:[phone] *[facility] No Information 8 Mpcirilo Bassett. [address] [place] [address], [id number], . tel:[phone] OFFICE/OUTPA TIENT VISIT, [facility], [address] [place] [address], [id number], tel:[phone] *[facility] Urgent Care dizziness (chief complaint) Acute serous otitis media of left ear, recurrence not specifiedAllergi c rhinitis, unspecified allergic rhinitis trigger, unspecified rhinitis seasonality 7 No Information OFFICE/OUTPA TIENT VISIT, [facility], [address] [place] [address], [id number], [place] tel:[phone] *[facility] back pain (chief complaint) Nonallopathic lesion of lumbar region, not elsewheLumbagoNo nallopathic lesions of thoracic region, not elsewhere classifiedPain in thoracic spineNonallopath ic lesion of cervical regionCervicalgi a [address] Tan[address] [place], [address], [place]. tel:[phone] Family History Family Member Type Diagnosis Age At Onset No Information Payers Payer name Insurance type Covered constitution party ID Authoriza tion(s) No Information Social History Type Description Quantity Date Captured Comments Sex Male Smoking Status No Information Chief Complaint And Reason For Visit No Information Reason For Referral Reason For Referral No Information Plan Of Treatment Date Type Action Status Goal Dietary management education , guidance, and counseling completed History Of Present Illness Encounter Date Complaint History Of Prese nt Illness dizziness Onset was 1 day ago. Severity is 6. The duration of each episode is 1 Day. The problem is worsening. It occurs occasionally. The patient describes it as (an) light-headed and spinning. Associated symptoms include hearing loss and nausea. Additional information: Has hypoglycemia and has had several sinus infections over the past month. back pain Severity level i s moderate-severe. The problem is fluctuating. It occurs persistently. Location of pain is upper back, middle back, lower back and neck. Pain is radiated to the back.The patient describes the pain as an ache, deep and discomforting. Context: bending over, lifting a heavy object and twisting movement. Symptoms are aggravated by changing positions, sitting, standing, twisting and walking.The patient denies relieving factors. Functional Status Date Functional Assessmen t No Information Instructions Date Instruction Additional Infor mation Discussed use of OTC antihistami ne. Related to Allergic rhinitis, unspecified allergic rhinitis trigger, unspecified rhinitis seasonality Flonase. Related to Acute serous otitis media of left ear, recurrence not specified Educated patient jeffrey t exercise is very healthy for the body, the heart, and overall health of the spine. Educated patient to contact P.C.P. if needed. Ice sore spots 2 to 3 times a day, 10 minutes on 30 minutes off. Stretch slowly 2 to 3 times a day holding for 10 seconds. We want to decrease pain and decrease inflammation, and to also decrease irritation to the nerves to cause optimal nerve flow for this patient and we will try to accomplish these things through Chiropractic Treatment. Related to Nonallopathic lesion of lumbar region, not elsewhe Dietary management e ducation, guidance, and counseling Related to Dietary surveillance and counseling Assessments Type Assessment Date No Information Patient Care Teams Name Effective Dates (start - stop) Status Members No Information
[2024-12-01 20:34] VITALS: BP 101/73; PULSE 113; RESP 22; TEMP 36.6; O2SAT 90; BMI 26.6
--- OUTSIDE RECORDS SUMMARY | 2024-12-01 20:41 | XMS_ITS | Encounter Summary ---
Author Organization [employer] [facility] Address [address] [place] [address] Care Team Providers Care Subscription Crew Leader Name Role Phone Unavailable Primary Care Provider Unavailabl e Encounter Details Date Type Department Care Team (Latest Contact Info) Description 01/30/1998 Outpatient Historical [facility] Tyson Hurtado NO ADDRESS ON FILE Skin sensation disturb (Primary Dx) Social History Tobacco Use Types Packs/Day Years Used Date Smoking Tobacco: Never Assessed Sex and Gender Information Value Date Recorded Sex Assigned at Not on file 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
--- OUTSIDE RECORDS SUMMARY | 2024-12-01 20:41 | XMS_ITS | Clinical Summary ---
Author Organization [facility] Address [address] 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
--- NOTE | 2024-12-01 20:51 | CTR_ITS ---
PROCEDURE INFORMATION: Exam: CTA Chest With Contrast Exam date and time: 12/01/2024 9:19 PM Age: 58 years old Clinical indication: Shortness of breath and other: Tachycardia; Prior surgery; Surgery date: 6+ months; Surgery type: Port a cath; SOB with hypoxia and tachycardia. History of rectal cancer. ; Additional info: SOB, hypoxia, tachycardia TECHNIQUE: Imaging protocol: Computed tomographic angiography of the chest with contrast. Exam focused on the arteries. 3D rendering (Not supervised by radiologist): MIP and/or 3D reconstructed images were created by the technologist. Radiation optimization: All CT scans at this facility use at least one of these dose optimization techniques: automated exposure control; mA and/or kV adjustment per patient size (includes targeted exams where dose is matched to clinical indication); or iterative reconstruction. Contrast material: OMNI 350; Contrast volume: 100 ml; Contrast route: INTRAVENOUS (IV); COMPARISON: PT PET skull to thigh SUBS [id number] 08/30/2024 9:04 AM RADIATION DOSE METRICS: Total DLP (mGy-cm): 376.16 FINDINGS: Tubes, catheters and devices: A left chest wall implanted venous access port ends near the cavoatrial junction. Pulmonary arteries: Overall exam quality is good for evaluating the pulmonary arteries. There are multiple bilateral acute pulmonary emboli beginning in both distal main pulmonary arteries and extending into the segmental and subsegmental branches of both upper and lower lobes as well as the middle lobe. There are subsegmental occlusive emboli in both posterior basal segments as well as posterior and lateral portions of the right upper lobe. No saddle embolus. Aorta: Unremarkable. No aortic aneurysm. No aortic dissection. Lungs: There are multiple patchy and hazy airspace opacities in the left upper and lower lobes. One wedge-shaped opacity in the periphery of the left midlung is likely a small pulmonary infarct . No visible pulmonary mass. Pleural spaces: Unremarkable. No pneumothorax. No pleural effusion. Heart: Right ventricle is dilated with an elevated RV/LV ratio of 1.9. The intraventricular septum is deformed indicating right ventricular strain. No calcified plaque in the coronary arteries. Lymph nodes: Unremarkable. No enlarged lymph nodes. Gallbladder and biliary ducts: Gallstones in the gallbladder are nonobstructing. Bones/joints: An intraosseous cyst in the manubrium was previously FDG negative. Soft tissues: Unremarkable. CT/CT angio chest PE protcl [id number] IMPRESSION: Numerous bilateral main pulmonary, lobar, and segmental pulmonary emboli, some of which are occlusive. There is right ventricular strain and elevated RV/LV ratio of 1.9.
[2024-12-01 21:04] VITALS: BP 101/73
[2024-12-01 21:15] LABS: ABG PCO2 37.1 mmHg (35-45); ABG PH Result 7.43 (7.35-7.45); Arterial Blood Gas Hematocrit 41.8 % (42-52); Blood Gas Allen Test Pos; Blood Gas LPM 4.5 %; Blood Gas Sample Site Radial, right; Blood Gas Sample Type Arterial; Carboxyhemoglobin 1.5 %THgb (0.4-20.1); HCO3 ABG 24.8 mmol/L (22-26); Methemoglobin 0.8 % (0.4-1.5); PO2 ABG 69.1 mmHg (80.0-100.0); PO2 FiO2 Ratio Arterial Blood 191
[2024-12-01] MEDS: iohexol 350 mg/mL 500 mL Btl (per mL) IV (21:20)
[2024-12-01] MEDS: piperacillin-tazobactam 4.5 GM in sodium chloride 0.9% (plus) 50 ML IV (21:33)
[2024-12-01 21:34] VITALS: BP 101/73; O2SAT 93
[2024-12-01 21:48] LABS: Hematocrit 40.1 % (37-53); Hemoglobin 12.30 g/dL (11.27-16.99); Mean Corpuscular HGB Conc 30.7 g/dL (30-55); Mean Corpuscular Hemoglobin 25.5 pg (27-33); Mean Corpuscular Volume 83.0 fl (82-101); Platelet Count 344 10^3/cmm (157-399); Red Blood Count 4.83 10^6/uL (3.85-5.65); White Blood Count 9.68 10^3/uL (3.29-11.43)
[2024-12-01 21:57] LABS: Slide Review Slide Review Perform
[2024-12-01 22:02] LABS: Partial Thromboplastin Time 27.3 SECONDS (23.9-36.7)
[2024-12-01 22:07] LABS: Lactic Sepsis W/Reflex 2.1 mmol/L (0.5-2.2)
[2024-12-01] MEDS: heparin 5,000 unit/mL INJ 1 mL IVP (22:11)
[2024-12-01] MEDS: heparin drip 25,000 UNIT/500 ML PREMIX 21 UNIT IV (22:15)
[2024-12-01 22:18] VITALS: BP 101/73; PULSE 103; RESP 18; O2SAT 94
[2024-12-01 22:18] LABS: Alanine Aminotransferase 48 U/L (0-41); Albumin Level 3.1 g/dL (3.5-5.2); Alkaline Phosphatase 78 U/L (40-130); Anion Gap 16.7 (5-19); Aspartate Amino Transferase 62 U/L (0-40); Blood Urea Nitrogen 9 mg/dL (6-20); Calcium 8.2 mg/dL (8.5-10.5); Carbon Dioxide 22 mmol/L (22-29); Chloride 104 mmol/L (98-107); Creatinine Clr Calc Pharmacy 65.5327; Globulin 2.1 g/dL (1.3-4.6); Glucose 133 mg/dL (65-115); Magnesium 1.7 mg/dL (1.7-2.3); NT Pro B Type Natriuretic Pept 284 pg/mL (0-125); Osmolality Calculated 291 mOsm/kg (285-295); Sodium 140 mmol/L (136-145); Total Protein 5.2 g/dL (6.6-8.7)
[2024-12-01 22:22] LABS: Respiratory Syncytial Virus Ce NEGATIVE (Negative); SARS-CoV-2 PCR NEGATIVE (Negative)
[2024-12-01 22:26] LABS: Potassium 2.7 mmol/L (3.5-5.1); Troponin(5th) Baseline 300 ng/L (0-15)
[2024-12-01 22:27] LABS: Reflex Lactate Order REFLEX LACTIC ORDERD
[2024-12-01 22:30] VITALS: BP 98/64; PULSE 100; RESP 17; O2SAT 90
--- NOTE | 2024-12-01 22:31 | ED_ITS ---
HPI - SOB/Dyspnea 2 General: Chief Complaint: Shortness of Breath/Dyspnea Stated Complaint: SOB Time Seen by Provider: 12/01/24 20:45 History of Present Illness: HPI Narrative: 58-year-old male with history of colon c ancer undergoing chemotherapy. He presents with significant shortness of breath worsening over the last several hours. He admits to a mild cough. He denies chest pain. No fever. No real sputum production. He is also been on a 10-hour car trip this week. No leg swelling. Related Data Home Medications ?Medication ?Instructions ?Recorded ?Confirmed vitamin B complex 1 cap PO DAILY 08/15/2310/19 Previous Rx's ?Medication ?Instructions ?Recorded clindamycin phosphate 1 % topical 1 applic topical BID #30 grams 11/03/23 gel fluorouracil 500 mg/10 mL 4,296 mg (85.92 mL) continuo us IV 12/22/23 intravenous solution infusion Q14D #200 mL irinotecan 300 mg/15 mL 320 mg (16 mL) IV Q14D #60 m L 09/19/24 intravenous solution (Camptosar) panitumumab 100 mg/5 mL (20 mg/mL) 314 mg (15.7 mL) IV Q14D #40 mL 10/17/24 intravenous solution dexamethasone 2 mg tablet 2 mg PO DAILY #30 tabs 11/14 leucovorin calcium 500 mg solution 720 mg IV Q14D #4 e a 11/14/24 for injection Allergies Allergy/AdvReac Type Severity Reaction Status Date / Time No Known Allergies Allergy Verified 11/11/24 08:54 PFS ED 2 PFSH: Medical History 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 Incisional hernia Adenocarcinoma of rectum Iron deficiency anemia Surgical History History of exploratory laparotomy (01/30/23) Exploratory laparotomy with sigmoid colon resection, abdominal washout, explantation of mesh, and creation of end colostomy Port-A-Cath in place Left chest wall 08/31/22 Hx of colonoscopy 07/29/22 History of esophagogastroduodenoscopy (EGD) History of umbilical hernia repair Family History Father Alcoholism Mother Pulmonary hypertension Hypertension Other CAD (coronary artery disease) Cancer Diabetes Social History Smoking and tobacco/nicotine status: never used tobacco/nicotine Alcohol intake: never Substance/Drug Use: never Household members: spouse Marital status: Number of children: 2 Number of grandchildren: 2 Current occupational status: employed Current occupation: software quality assurance analyst Leisure activites: sports Special harshil needs: No Agree to transfusion: Yes Physical Exam 2 Const: GENERAL APPEARANCE: cooperative and ill appearing Eye: COMMON NORMALS: Equal, round and reactive pupils present and EOMs intact bilaterally PUPIL: Yes Equal, round and reactive pupils present Neck/C-Spine: GENERAL: Yes trachea midline and No anterior neck swelling Chest: CHEST: Yes Symmetrical chest wall rise Resp: COMMON NORMALS: clear to auscultation bilaterally EFFORT & INSPECTION: Yes symmetric chest movement, Yes tachypneic and Yes labored A USCULTATION: clear to auscultation bilaterally Cardio: COMMON NORMALS: regular rhythm RATE: tachycardic RHYTHM: regular rhythm Extremity: COMMON NORMALS: no pedal edema Neuro: THAI COMA SCALE: document GCS findings [place] coma scale eye opening: Spontaneous Thai coma scale verbal response: Orientated Thai coma scale motor response: Obey commands Thai coma scale total score: 15 Course 2 Vital Signs: Vital signs: Vital Signs Temperature 97.8 F 12/01/24 20:34 Pulse Rate 79 12/02/24 01:00 Respiratory Rate 25 H 12/02/24 00:00 Blood Pressure 95/70 12/02/24 01:00 Pulse Oximetry 96 12/02/24 01:00 Oxygen Delivery Me thod Room Air 12/01/24 23:00 Oxygen Flow Rate 5 12/01/24 20:34 MDM - SOB/Dyspnea Medical Decision Making Patient is significantly hypoxic on room air. Improved somewhat with a breathing treatment, and oxygen. He is on 5 L currently with saturations of 94%. His heart rate is 95, sinus. Blood pressure is 98/64. CTA of the chest shows bilateral main pulmonary lobar and segmental pulmonary emboli with RV to LV ratio of 1.9. With soft pressures, elevated ratio, he becomes a candidate for potential thrombectomy. We are not able to perform that procedure here. I have a call out to [facility] in [facility] regarding potential transfer. Spoke with interventional radiology at [facility]. He is willing to evaluate the patient for potential procedure. Spoke with the hospitalist team there as well. They have accepted in transfer. We have no ground transport available currently. Air ambulance not flying due to weather. [facility] is sending a medical transport team to get the patient he remained stable. Lab Data 12/01/24 21:38 12/01/24 21:38 Labs/Radiology: Radiology Impressions Chest CTA 12/01/24 20:51 IMPRESSION: Numerous bilateral main pulmonary, lobar, and segmental pulmonary emboli, some of which are occlusive. There is right ventricular strain and elevated RV/LV ratio of 1.9. ADDENDUM: 12/01/242150 THIS REPORT CONTAINS FINDINGS THAT MAY BE CRITICAL TO PATIENT CARE. The findings were verbally communicated via telephone conference with TOM BEE at 9:49 PM CDT on 12/01/2024. The findings were acknowledged and understood. Laboratory Results WBC 9.68 10^3/uL (3.29-11.43) 12/01/24 21:38 RBC 4.83 10^6/uL (3.85-5.65) 12/01/24 21:38 Hgb 12.30 g/dL (11.27-16.99) 12/01/24 21:38 Hct 40.1 % (37-53) 12/01/24 21:38 MCV 83.0 fl (82-101) 12/01/24 21:38 MCH 25.5 pg (27-33) L 12/01/24 21:38 MCHC 30.7 g/dL (30-55) 12/01/24 21:38 RDW 18.9 % (12.1-15.1) H 12/01/24 21:38 Plt Count 344 10^3/cmm (157-399) 12/01/24 21:38 MPV 10.6 fL (7.4-10.4) H 12/01/24 21:38 Lymph % (Auto) Not Reportable 12/01/24 21:38 Avery % (Auto) Not Reportable 12/01/24 21:38 Lymph # (Auto) Not Reportable 12/01/24 21:38 Avery # (Auto) Not Reportable 12/01/24 21:38 Total Counted 100 (0-100) 12/01/24 21:38 Atypical Lymphs % 4.0 % (0-5) 12/01/24 21:38 Absolute Neutrophils 7.5 10^3/cmm (1.4-6.5) H 12/01/24 21:38 Segmented Neutrophils 71 % 12/01/24 21: Band Neutrophils 6.0 % 12/01/24 21: Absolute Lymphocytes 1.3 10^3/cmm (1.2-3.4) 12/01/24 21:38 Lymphocytes (Manual) 9 % 12/01/24 21: Monocytes (Manual) 6.0 % 12/01/24 21: Absolute Monocytes 0.6 10^3/cmm (0.1-0.6) 12/01/24 21: Eosinophils (Manual) 0 % 12/01/24: Absolute Eosinophils 0.0 10^3/cmm (0.0-0.7) 12/01/24 21: Basophils (Manual) 0.0 % 12/01/24: Absolute Basophils 0.0 10^3/cmm (0.0-0.2) 12/01/24 21: Metamyelocytes 1.0 % 12/01/24 21: Myelocytes 3.0 % 12/01/24 21:38 Platelet Estimate Normal (Normal) 12/01/24 21:38 Anisocytosis Trace 12/01/24 21:38 Tear Drop Cells Trace 12/01/24 21:38 APTT 27.3 SECONDS (23.9-36.7) 12/01/24 21:38 Specimen Type Arterial 12/01/24 21:03 Sample Site Radial, right 12/01/24 21:03 ABG pH 7.43 (7.35-7.45) 12/01/24 21:03 ABG pCO2 37.1 mmHg (35-45) 12/01/24 21:03 ABG pO2 69.1 mmHg (80.0-100.0) L 12/01/24 21:03 ABG PO2/FiO2 Ratio 191 12/01/24 21:03 ABG HCO3 24.8 mmol/L (22-26) 12/01/24 21:03 ABG Base Excess 0.8 mmol/L (-2.0-2.0) 12/01/24 21:03 Severino Test Pos 12/01/24 21:03 Hematocrit 41.8 % (42-52) L 12/01/24 21:03 Hgb O2 Saturation 91.8 % (95-100) L 12/01/24 21:03 Carboxyhemoglobin 1.5 %THgb (0.4-20.1) 12/01/24 21:03 Methemoglobin 0.8 % (0.4-1.5) 12/01/24 21:03 Total Hemoglobin 13.6 g/dL (14-18) L 12/01/24 21:03 O2 Delivery Device nc 12/01/24 21:03 O2 Liters/Min 4.5 % 12/01/24 21:03 FiO2 36.0 % 12/01/24 21:03 Personnel Records Clerk ID yorna 12/01/24 21:03 Sodium 140 mmol/L (136-145) 12/01/24 21:38 Potassium 2.7 mmol/L (3.5-5.1) L* 12/01/24 21:38 Chloride 104 mmol/L (98-107) 12/01/24 21:38 Carbon Dioxide 22 mmol/L (22-29) 12/01/24 21:38 Anion Gap 16.7 (5-19) 12/01/24 21:38 BUN 9 mg/dL (6-20) 12/01/24 21:38 Creatinine 1.2 mg/dL (0.7-1.2) 12/01/24 21:38 GFR Calculation 62.4 mL/min (90-130) L 12/01/24 21:38 Glucose 133 mg/dL (65-115) H 12/01/24 21:38 Calculated Osmolality 291 mOsm/kg (285-295) 12/01/24 21:38 Lactic Acid 2.1 mmol/L (0.5-2.2) 12/01/24 21:38 Lactic Acid (Sepsis) 1.6 mmol/L (0.5-2.2) 12/01/24 23:23 Calcium 8.2 mg/dL (8.5-10.5) L 12/01/24 21:38 Magnesium 1.7 mg/dL (1.7-2.3) 12/01/24 21:38 Total Bilirubin 0.6 mg/dL (0.15-1.2) 12/01/24 21:38 AST 62 U/L (0-40) H 12/01/24 21:38 ALT 48 U/L (0-41) H 12/01/24 21:38 Alkaline Phosphatase 78 U/L (40-130) 12/01/24 21:38 Troponin T Baseline 300 ng/L (0-15) H* 12/01/24 21:38 Troponin T 120 Minute 619.3 ng/L (0-15) H 12/01/24 23:23 Delta Troponin T 319.3 ABS# (0-10) H* 12/01/24 23:23 NT-Pro-B Natriuret Pep 284 pg/mL (0-125) H 12/01/24 21:38 Total Protein 5.2 g/dL (6.6-8.7) L 12/01/24 21:38 Albumin 3.1 g/dL (3.5-5.2) L 12/01/24 21:38 Globulin 2.1 g/dL (1.3-4.6) 12/01/24 21:38 Influenza A (PCR) Negative (Negative) 12/01/24 20:58 Influenza Type B (PCR) Negative (Negative) 12/01/24 20:58 RSV (PCR) Negative (Negative) 12/01/24 20:58 SARS-CoV-2 (PCR) Negative (Negative) 12/01/24 20:58 All radiology interpretation(s) finalized by discharge Critical Care Time 2 Critical Care Time: Critical Care Time: Yes Total Critical Care Time: 40 Attestation: This case had a high probability of a clinically significant, sudden, or life threatening deterioration of this patient's condition which required my full and direct attention, intervention and personal management. Time is independent of any procedures performed Discharge Plan Discharge Patient Disposition: Xfer Short-Term Hosp Clinical Impression: Pulmonary embolism Qualifiers: Chronicity: acute Acute cor pulmonale presence: with acute cor pulmonale Condition: Serious Referrals: Rosa Elena Gibbs MD [Primary Care Provider, [facility]] Print Language: Arabic Coding Level of Care Code ED Substitute Bus Driver for Radha Beach
[2024-12-01 22:42] LABS: Absolute Segmented Neutrophil 6.9 10/cmm (1.6-7.1); Atypical Lymphs 4.0 % (0-5); Band Neutrophils Absolute 0.6 10^3/cmm (0.0-1.2); Total Cells Counted 100 (0-100)
[2024-12-01 22:44] LABS: Anisocytosis Trace; Tear Drop Cells Trace
--- NOTE | 2024-12-01 22:49 | PC.NURSE ---
This nurse and Emily CRAMER confirmed compatibility of KCL and Heparin on micromedx prior to starting infusion.
[2024-12-01] MEDS: lidocaine 1% 5 ML in potassium chloride premix 100 ML 26.25 ML IV (22:52)
[2024-12-01 23:00] VITALS: BP 93/63; PULSE 92; RESP 18; O2SAT 95
[2024-12-01 23:55] LABS: Troponin 5 2HR 619.3 ng/L (0-15)
[2024-12-01 23:56] LABS: Troponin 5 2HR Delta 319.3 ABS# (0-10)
[2024-12-02] VITALS: BP 96/66; PULSE 88; RESP 25; O2SAT 97
[2024-12-02 00:08] LABS: Lactic Acid level (Lactate) 1.6 mmol/L (0.5-2.2)
[2024-12-02 01:00] VITALS: BP 95/70; PULSE 79; O2SAT 96
[2024-12-02 02:00] VITALS: BP 103/69; PULSE 79; O2SAT 97
[2024-12-02 02:45] VITALS: BP 91/71; PULSE 75; RESP 26; O2SAT 96
[2024-12-02 03:32] VITALS: BP 96/72; PULSE 85; O2SAT 95
--- NOTE | 2024-12-02 05:51 | PC.NURSE ---
Heparin drip continued by EMS during transfer to [facility].
== END 2024-12-02 03:30 | disposition short-term general hospital (02) ==
PROVIDERS: Emergency Provider Emergency Medicine; PCP Family Medicine
DX: I26.09 Other pulmonary embolism with acute cor pulmonale (principal)
CPT/HCPCS: 36415; 36600; 71275; 80053; 82805; 83605; 83735; 83880; 84484; 85007; 85025; 85730; 87040; 87637; 96365; 96366; 96375; 99285; J1644; J2543; J3480; J9999

== ENCOUNTER 2024-12-16 08:00 | Oncology outpatient (recurring) (ONCR) | payer BC, SELFPAY ==
--- NOTE | 2024-12-06 08:30 | PETR_ITS ---
PROCEDURE INFORMATION: Exam: PET/CT Skull Base to Mid-thigh Exam date and time: 12/06/2024 10:02 AM Age: 58 years old Clinical indication: Condition or disease; Primary cancer: Adenocarcinoma of rectum; Prior surgery; Surgery date: 6+ months; Surgery type: Port LABS AND CLINICAL REPORTS: Glucose: 116 mg/dl Treatment strategy for malignancy (PET staging): Restaging (PS) TECHNIQUE: Imaging protocol: Following at least four-hour fasting and following the injection of radiopharmaceutical, low dose CT images were obtained. Then, PET images were obtained. Attenuation corrected images were constructed using the CT scan. Fused images of PET and CT were reviewed. The standardized uptake values (SUV) reported below are maximum values within a region of interest, expressed in gm/ml. Exam includes orbital meatal line to mid-thigh. SUV normalization method: BodyWeight Radiopharmaceutical: 9.7 mCi F-18 FDG (Fluorodeoxyglucose), IV. Time of imaging post radiopharmaceutical administration: 45 minutes Injection site: left ac COMPARISON: CTA chest 12/01/2024, PT PET skull to thigh [id number] [id number] 08/30/2024 9:04 AM, CT chest, abdomen and pelvis 08/09/2023 FINDINGS: Tubes, catheters and devices: A left subclavian central venous port catheter terminates at the distal SVC/right atrial junction. Brain: Visualized brain has normal physiologic uptake. Pharynx: No abnormal uptake. Larynx: No abnormal uptake. Lungs, pleura and trachea: Ill-defined areas of patchy density in both lungs are new since the prior PET-CT and increased compared with 12/01/2024, some of which demonstrate elevated uptake. Examples: Ill-defined patchy density at the left lung apex is noted with elevated uptake anteriorly, SUV max 3.1 on image 64. Regions of ill-defined patchy density with elevated uptake are also noted in the anterior right upper lobe, SUV max 3.6 cm 79. A solid nodule in the lingula adjacent to the fissure on series 202, image 92 measures 1.2 cm in diameter (previously 1.7 x 1.1 cm on the CTA chest 12/01/2024), SUV max 4.7 and is new since the prior PET-CT. A triangular region of new soft tissue density adjacent to the pleural surface in the lateral inferior right lower lobe measuring 1.8 x 1.9 cm is new since the prior PET-CT, SUV max 3.8. Right lung calcified granulomas are present. Small [id number]-[id number]-right pleural effusions are noted with new mild uptake in the posteromedial left pleural surface, SUV max 4.3 on image 111. Heart: Normal physiologic uptake. Mediastinal space: No abnormal uptake. Liver: A focus of ovoid uptake in the posterior right lobe of the liver without a well-defined lesion on the CT images is noted, SUV max 18.7 (previously 10.6) on image 129. Assessment of the size of this region is limited without intravenous contrast, however it appears increased in size since the prior PET-CT. Gallbladder and biliary ducts: No abnormal uptake. Non radiotracer avid dependent sludge or stones in the gallbladder is noted. Pancreas: No abnormal uptake. Spleen: Radiotracer uptake along the lateral superior aspect of the spleen is noted, SUV max 12.3 (previously 6.9) likely within the pleura or peritoneum adjacent to the spleen on image 117. Calcified granulomas in the spleen are identified. Adrenal glands: No abnormal uptake. Kidneys and ureters: Normal physiologic uptake. Stomach and bowel: Irregularly marginated morphologically similar soft tissue density slightly superior to the rectal surgical staple line is noted, SUV max 6.2 (previously 8.8) measuring 3.3 x 1.8 cm on image 209. There are postoperative changes in the region of the proximal rectum with a colostomy. Vasculature: No abnormal uptake. Lymph nodes: There are small benign-appearing non radiotracer avid calcified mediastinal and right hilar lymph nodes. A 6 mm (previously 7 mm) mesenteric lymph node on image 145 is present, SUV max 7.5 (previously 9.0). A mesenteric lymph node located more laterally adjacent to the spleen measuring 6 mm (previously 7 mm) demonstrates an SUV max 3.5 (previously 12.5) on image 144. Skeleton: No abnormal uptake in the visualized axial and appendicular skeleton. A small number of scattered non radiotracer avid small rounded an ovoid sclerotic densities in the osseous structures are noted for example in the proximal femurs and bilateral acetabula likely represent benign bone islands. Mild degenerative spondylosis throughout the spine is present. A non radiotracer avid lobulated lucent lesion in the manubrium on the right is noted on series 202, image 78 measuring 1.7 x 1.4 cm. Soft tissues: No abnormal uptake in the visualized head, neck, chest, abdomen, pelvis, and extremities. METRICS: Mediastinal blood pool: SUV max 2.8, SUV mean 2.4 Liver uptake: SUV max 2.7, SUV mean 2.3 PET/PET skull to thigh [id number] [id number] IMPRESSION: 1. A similar morphology region of irregular soft tissue density along the superior aspect of the rectal surgical staple line concerning for possible residual or recurrent malignancy is morphologically similar and demonstrates persistent but slightly decreased elevated uptake which may represent partial response to therapy. 2. Two small radiotracer avid mesenteric lymph nodes appear minimally decreased in size with interval decrease in uptake suggesting partial response to therapy. 3. A lesion in the posterior right lobe of the liver is increased in size since the prior PET-CT with interval increase in uptake concerning for increased malignant involvement. 4. Interval increase in uptake concerning for malignancy adjacent to the superior aspect of the spleen, likely peritoneal or within the inferior pleural surface. 5. New multifocal regions of patchy density and nodularity in the bilateral lungs and posteroinferior left pleural surface with elevated uptake compared to the prior PET-CT. A malignant etiology cannot be entirely excluded, however, uptake associated with the recent known history of bilateral pulmonary emboli on CTA chest 12/01/2024 is and additional consideration. 6. Old granulomatous changes. 7. Additional nonurgent findings as detailed above.
[2024-12-16 08:14] LABS: Hematocrit 35.3 % (37-53); Hemoglobin 10.50 g/dL (11.27-16.99); Mean Corpuscular HGB Conc 29.7 g/dL (30-55); Mean Corpuscular Hemoglobin 25.4 pg (27-33); Mean Corpuscular Volume 85.5 fl (82-101); Nucleated Red Blood Cells % 0 %; Platelet Count 303 10^3/cmm (157-399); Red Blood Count 4.13 10^6/uL (3.85-5.65); White Blood Count 6.83 10^3/uL (3.29-11.43)
[2024-12-16 08:31] LABS: Alanine Aminotransferase 9 U/L (0-41); Albumin Level 2.8 g/dL (3.5-5.2); Alkaline Phosphatase 77 U/L (40-130); Anion Gap 12.8 (5-19); Aspartate Amino Transferase 10 U/L (0-40); Blood Urea Nitrogen 6 mg/dL (6-20); Calcium 8.4 mg/dL (8.5-10.5); Carbon Dioxide 24 mmol/L (22-29); Chloride 107 mmol/L (98-107); Creatinine Clr Calc Pharmacy 66.2843; Globulin 3.2 g/dL (1.3-4.6); Glucose 118 mg/dL (65-115); Osmolality Calculated 289 mOsm/kg (285-295); Potassium 3.8 mmol/L (3.5-5.1); Sodium 140 mmol/L (136-145); Total Protein 6.0 g/dL (6.6-8.7)
[2024-12-16 09:04] LABS: Carcinoembryonic Antigen 3.6 ng/mL (0.0-4.7)
[2024-12-16] MEDS: dexamethasone 4 mg/mL INJ 5 mL 12 MG IVP (09:55)
[2024-12-16] MEDS: diphenhydrAMINE 50 mg/mL SDV 1mL 25 MG IVP (10:02)
[2024-12-16 10:05] VITALS: BP 110/77; PULSE 58; RESP 17; TEMP 36.6; O2SAT 97
[2024-12-16] MEDS: PANITUMUMAB IV (10:26)
[2024-12-16] MEDS: SODIUM CHLORIDE 0.9% IV (10:26)
[2024-12-16] MEDS: atropine 1 mg/mL SDV 1 mL 0.4 MG IV (11:34)
[2024-12-16] MEDS: leucovorin 740 MG in dextrose 5% 250 ML 166.67 MG IV (11:35)
[2024-12-16 13:26] VITALS: BP 107/68; PULSE 71; TEMP 36.6; O2SAT 97
[2024-12-16] MEDS: fluorouraciL 4,450 MG, elastomeric pump 1 PUMP in sodium chloride 0.9% (100 ml) 3 ML IV (13:29)
== END 2024-12-17 23:59 | disposition home or self-care (01) ==
PROVIDERS: PCP Family Medicine; Visit Provider Internal Medicine Medical Oncology
DX: Z51.11 Encounter for antineoplastic chemotherapy; C20 Malignant neoplasm of rectum; Z79.899 Other long term (current) drug therapy; Z79.52 Long term (current) use of systemic steroids; Z79.631 Long term (current) use of antimetabolite agent; Z53.9 Procedure and treatment not carried out, unspecified reason
CPT/HCPCS: 78815; 80053; 82378; 85025; 96368; 96375; 96413; 96415; 96416; 96417; A9552; J0461; J0640; J1100; J1200; J2469; J7050; J7060; J9190; J9206; J9303

== ENCOUNTER 2025-01-15 11:00 | Oncology outpatient (recurring) (ONCR) | payer BC, SELFPAY ==
[2024-12-30 08:11] LABS: Hematocrit 37.7 % (37-53); Hemoglobin 11.10 g/dL (11.27-16.99); Mean Corpuscular HGB Conc 29.4 g/dL (30-55); Mean Corpuscular Hemoglobin 25.3 pg (27-33); Mean Corpuscular Volume 85.9 fl (82-101); Nucleated Red Blood Cells % 0.3 %; Platelet Count 173 10^3/cmm (157-399); Red Blood Count 4.39 10^6/uL (3.85-5.65); White Blood Count 9.25 10^3/uL (3.29-11.43)
[2024-12-30 08:46] LABS: Carcinoembryonic Antigen 4.8 ng/mL (0.0-4.7)
[2024-12-30 08:57] LABS: Alanine Aminotransferase 18 U/L (0-41); Albumin Level 3.6 g/dL (3.5-5.2); Alkaline Phosphatase 58 U/L (40-130); Anion Gap 16.2 (5-19); Aspartate Amino Transferase 10 U/L (0-40); Blood Urea Nitrogen 13 mg/dL (6-20); Calcium 8.8 mg/dL (8.5-10.5); Carbon Dioxide 24 mmol/L (22-29); Chloride 105 mmol/L (98-107); Creatinine Clr Calc Pharmacy 89.0764; Globulin 2.1 g/dL (1.3-4.6); Glucose 109 mg/dL (65-115); Osmolality Calculated 295 mOsm/kg (285-295); Potassium 3.2 mmol/L (3.5-5.1); Sodium 142 mmol/L (136-145); Total Protein 5.7 g/dL (6.6-8.7)
[2024-12-30] MEDS: dexamethasone 4 mg/mL INJ 5 mL 12 MG IVP (09:39)
[2024-12-30] MEDS: diphenhydrAMINE 50 mg/mL SDV 1mL 25 MG IVP (09:47)
[2024-12-30] MEDS: SODIUM CHLORIDE 0.9% IV (10:18)
[2024-12-30] MEDS: PANITUMUMAB IV (10:18)
[2024-12-30] MEDS: atropine 1 mg/mL SDV 1 mL 0.4 MG IV (11:38)
[2024-12-30] MEDS: leucovorin 760 MG in dextrose 5% 250 ML 217.33 MG IV (11:54)
[2024-12-30] MEDS: fluorouraciL 4,500 MG, elastomeric pump 1 PUMP in sodium chloride 0.9% (100 ml) 2 ML IV (13:50)
[2024-12-30 13:55] VITALS: BP 126/67; PULSE 48; TEMP 36.3; O2SAT 97
[2025-01-13 08:38] LABS: Hematocrit 38.7 % (37-53); Hemoglobin 11.50 g/dL (11.27-16.99); Mean Corpuscular HGB Conc 29.7 g/dL (30-55); Mean Corpuscular Hemoglobin 25.7 pg (27-33); Mean Corpuscular Volume 86.4 fl (82-101); Nucleated Red Blood Cells % 1.1 %; Platelet Count 189 10^3/cmm (157-399); Red Blood Count 4.48 10^6/uL (3.85-5.65); White Blood Count 5.35 10^3/uL (3.29-11.43)
[2025-01-13 08:57] LABS: Alanine Aminotransferase 22 U/L (0-41); Albumin Level 3.6 g/dL (3.5-5.2); Alkaline Phosphatase 61 U/L (40-130); Anion Gap 16.1 (5-19); Aspartate Amino Transferase 12 U/L (0-40); Blood Urea Nitrogen 8 mg/dL (6-20); Calcium 8.3 mg/dL (8.5-10.5); Carbon Dioxide 23 mmol/L (22-29); Chloride 105 mmol/L (98-107); Creatinine Clr Calc Pharmacy 99.9557; Globulin 1.9 g/dL (1.3-4.6); Glucose 116 mg/dL (65-115); Osmolality Calculated 291 mOsm/kg (285-295); Potassium 3.1 mmol/L (3.5-5.1); Sodium 141 mmol/L (136-145); Total Protein 5.5 g/dL (6.6-8.7)
[2025-01-13] MEDS: diphenhydrAMINE 50 mg/mL SDV 1mL 25 MG IVP (09:38)
[2025-01-13] MEDS: dexamethasone 4 mg/mL INJ 5 mL 12 MG IVP (09:38)
[2025-01-13] MEDS: PANITUMUMAB IV (09:48)
[2025-01-13] MEDS: SODIUM CHLORIDE 0.9% IV (09:48)
[2025-01-13] MEDS: atropine 1 mg/mL SDV 1 mL 0.4 MG IV (10:59)
[2025-01-13] MEDS: leucovorin 760 MG in dextrose 5% 250 ML 217.33 MG IV (11:00)
[2025-01-13] MEDS: IRINOTECAN IV (11:01)
[2025-01-13] MEDS: DEXTROSE 5% IV (11:01)
[2025-01-13] MEDS: fluorouraciL 4,550 MG in elastomeric pump 1 PUMP IV (12:45)
[2025-01-13 12:50] VITALS: BP 136/80; PULSE 56; RESP 17; TEMP 36.8; O2SAT 97
== END 2025-01-17 23:59 | disposition home or self-care (01) ==
PROVIDERS: Nurse Practitioner Family; PCP Family Medicine; Visit Provider Internal Medicine Medical Oncology
DX: Z45.1 Encounter for adjustment and management of infusion pump (principal); Z95.828 Presence of other vascular implants and grafts
CPT/HCPCS: 80053; 82378; 85025; 96368; 96375; 96413; 96415; 96416; 96417; 96523; A4222; J0461; J0640; J1100; J1200; J2469; J7050; J7060; J9190; J9206; J9303

== ENCOUNTER 2025-02-12 10:45 | Oncology outpatient (recurring) (ONCR) | payer BC, SELFPAY ==
[2025-01-27 08:04] LABS: Hematocrit 39.7 % (37-53); Hemoglobin 11.90 g/dL (11.27-16.99); Mean Corpuscular HGB Conc 30.0 g/dL (30-55); Mean Corpuscular Hemoglobin 25.9 pg (27-33); Mean Corpuscular Volume 86.3 fl (82-101); Nucleated Red Blood Cells % 0.5 %; Platelet Count 160 10^3/cmm (157-399); Red Blood Count 4.60 10^6/uL (3.85-5.65); White Blood Count 6.56 10^3/uL (3.29-11.43)
[2025-01-27 08:24] LABS: Alanine Aminotransferase 24 U/L (0-41); Albumin Level 3.6 g/dL (3.5-5.2); Alkaline Phosphatase 52 U/L (40-130); Anion Gap 12.4 (5-19); Aspartate Amino Transferase 15 U/L (0-40); Blood Urea Nitrogen 11 mg/dL (6-20); Calcium 8.4 mg/dL (8.5-10.5); Carbon Dioxide 25 mmol/L (22-29); Chloride 106 mmol/L (98-107); Globulin 2.0 g/dL (1.3-4.6); Glucose 97 mg/dL (65-115); Osmolality Calculated 289 mOsm/kg (285-295); Potassium 3.4 mmol/L (3.5-5.1); Sodium 140 mmol/L (136-145); Total Protein 5.6 g/dL (6.6-8.7)
[2025-01-27] MEDS: dexamethasone 4 mg/mL INJ 5 mL 12 MG IVP (09:25)
[2025-01-27] MEDS: diphenhydrAMINE 50 mg/mL SDV 1mL 25 MG IVP (09:32)
[2025-01-27 09:48] LABS: Carcinoembryonic Antigen 6.8 ng/mL (0.0-4.7)
[2025-01-27] MEDS: atropine 1 mg/mL SDV 1 mL 0.4 MG IV (10:51)
[2025-01-27] MEDS: IRINOTECAN IV (10:53)
[2025-01-27] MEDS: DEXTROSE 5% IV (10:53)
[2025-01-27] MEDS: leucovorin 760 MG in dextrose 5% 250 ML 217.33 MG IV (10:54)
[2025-01-27] MEDS: fluorouraciL 4,550 MG in elastomeric pump 1 PUMP IV (12:39)
[2025-01-27 12:45] VITALS: BP 124/80; PULSE 88; RESP 16; TEMP 36.1; O2SAT 99
[2025-02-10 08:17] LABS: Hematocrit 39.8 % (37-53); Hemoglobin 12.20 g/dL (11.27-16.99); Mean Corpuscular HGB Conc 30.7 g/dL (30-55); Mean Corpuscular Hemoglobin 26.2 pg (27-33); Mean Corpuscular Volume 85.6 fl (82-101); Nucleated Red Blood Cells % 0 %; Platelet Count 180 10^3/cmm (157-399); Red Blood Count 4.65 10^6/uL (3.85-5.65); White Blood Count 5.30 10^3/uL (3.29-11.43)
[2025-02-10 08:51] LABS: Carcinoembryonic Antigen 6.2 ng/mL (0.0-4.7)
[2025-02-10 09:02] LABS: Alanine Aminotransferase 29 U/L (0-41); Albumin Level 3.6 g/dL (3.5-5.2); Alkaline Phosphatase 55 U/L (40-130); Anion Gap 12.4 (5-19); Aspartate Amino Transferase 19 U/L (0-40); Blood Urea Nitrogen 10 mg/dL (6-20); Calcium 8.3 mg/dL (8.5-10.5); Carbon Dioxide 26 mmol/L (22-29); Chloride 105 mmol/L (98-107); Globulin 2.1 g/dL (1.3-4.6); Glucose 92 mg/dL (65-115); Osmolality Calculated 289 mOsm/kg (285-295); Potassium 3.4 mmol/L (3.5-5.1); Sodium 140 mmol/L (136-145); Total Protein 5.7 g/dL (6.6-8.7)
[2025-02-10] MEDS: diphenhydrAMINE 50 mg/mL SDV 1mL 25 MG IVP (10:14)
[2025-02-10] MEDS: dexamethasone 4 mg/mL INJ 5 mL 12 MG IVP (10:18)
[2025-02-10] MEDS: atropine 1 mg/mL SDV 1 mL 0.4 MG IV (12:20)
[2025-02-10] MEDS: IRINOTECAN IV (12:26)
[2025-02-10] MEDS: leucovorin 760 MG in dextrose 5% 250 ML 166.67 MG IV (12:26)
[2025-02-10] MEDS: DEXTROSE 5% IV (12:26)
[2025-02-10] MEDS: fluorouraciL 4,550 MG in elastomeric pump 1 PUMP IV (14:17)
[2025-02-10 14:29] VITALS: BP 125/77; PULSE 71; RESP 17; TEMP 36.1; O2SAT 96
== END 2025-02-16 23:59 | disposition home or self-care (01) ==
PROVIDERS: Nurse Practitioner Family; PCP Family Medicine; Visit Provider Internal Medicine Medical Oncology
DX: Z45.1 Encounter for adjustment and management of infusion pump; Z95.828 Presence of other vascular implants and grafts; Z53.9 Procedure and treatment not carried out, unspecified reason
CPT/HCPCS: 80053; 82378; 85025; 96368; 96375; 96413; 96415; 96416; 96417; 96523; A4222; J0461; J0640; J1100; J1200; J2469; J7050; J7060; J9190; J9206; J9303

== ENCOUNTER 2025-03-12 11:00 | Oncology outpatient (recurring) (ONCR) | payer BC, SELFPAY ==
--- NOTE | 2025-02-28 09:00 | PETR_ITS ---
PROCEDURE INFORMATION: Exam: PET/CT Skull Base to Mid-thigh Exam date and time: 02/28/2025 12:20 PM Age: 59 years old Clinical indication: Condition or disease; Primary cancer: Adenocarcinoma of rectum; Prior surgery; Surgery date: 6+ months; Surgery type: Port LABS AND CLINICAL REPORTS: Glucose: 106 mg/dl Treatment strategy for malignancy (PET staging): Restaging (PS) TECHNIQUE: Imaging protocol: Following at least four-hour fasting and following the injection of radiopharmaceutical, low dose CT images were obtained. Then, PET images were obtained. Attenuation corrected images were constructed using the CT scan. Fused images of PET and CT were reviewed. The standardized uptake values (SUV) reported below are maximum values within a region of interest, expressed in gm/ml. Exam includes orbital meatal line to mid-thigh. SUV normalization method: BodyWeight Radiopharmaceutical: 9.01 mCi F-18 FDG (Fluorodeoxyglucose), IV. Time of imaging post radiopharmaceutical administration: 47 minutes Injection site: left forearm COMPARISON: PT PET skull to thigh [id number] 12/06/2024 10:02 AM FINDINGS: Tubes, catheters and devices: Left chest port terminates near the superior cavoatrial junction. Brain: Visualized brain has normal physiologic uptake. Pharynx: Asymmetric FDG uptake at the left palatine tonsillar region without discrete underlying CT abnormality shows SUV max 6.0 on axial image 37. Larynx: Symmetric FDG uptake without underlying CT abnormality is likely benign physiologic activation. Lungs, pleura and trachea: Increased multifocal left upper and lower lobe heterogeneous ground-glass opacities with associated FDG avidity. Previous solid FDG avid peripheral left upper lobe nodule is not demonstrated today. Largely resolved right upper lobe ground-glass opacities. Right lung calcified granulomata. Heart: Normal physiologic uptake. Mediastinal space: No abnormal uptake. Liver: FDG uptake at the posterior right liver appears more heterogeneous with some areas of decreased FDG uptake, SUV max 19.7 at the superomedial aspect on axial image 131, previous SUV max 18.7 at the inferolateral aspect. FDG avid linear soft tissue density at the inferior hepatic margin shows SUV max 12.3 on axial image 153, previously 7.7. Gallbladder and biliary ducts: No abnormal uptake. Cholelithiasis. Pancreas: No abnormal uptake. Spleen: Perisplenic FDG uptake likely along the peritoneum or pleura shows SUV max 9.5 on axial image 127, previously 12.3. Calcified granulomata. Adrenal glands: No abnormal uptake. Kidneys and ureters: Normal physiologic uptake. Stomach and bowel: Redemonstrated postsurgical changes with left abdominal colostomy and stable CT appearance of irregularly marginated soft tissue density slightly superior to the rectal surgical staple line showing SUV max 11.5 on axial image 221, previously 6.2. Vasculature: No abnormal uptake. Mild systemic atherosclerotic calcification without aortic aneurysm. Lymph nodes: No abnormal uptake. No lymphadenopathy in the head, neck, chest, abdomen, pelvis, and extremities. Skeleton: No abnormal uptake in the visualized axial and appendicular skeleton. Mild spondylosis and bilateral sacroiliac joint degenerative change. Stable right manubrial lucent lesion characteristic of intraosseous hemangioma. Stable scattered non FDG avid nonaggressive sclerotic foci likely representing bone islands. Soft tissues: No abnormal uptake in the visualized head, neck, chest, abdomen, pelvis, and extremities. Redemonstrated left abdominal parastomal hernia containing nondilated, non thickened small bowel loop. METRICS: Mediastinal blood pool: SUV mean 2.0 Liver uptake: SUV mean 2.1 PET/PET skull to thigh [id number] IMPRESSION: 1. Compared to 12/06/2024, mixed treatment response. 2. Stable CT appearance of irregular soft tissue density at the superior aspect of the rectal surgical staple line shows increased FDG avidity concerning for disease progression. 3. Mixed response of FDG avid lesion at the posterior right liver. 4. Perisplenic FDG uptake likely along the peritoneum or fluoro shows mildly decreased FDG uptake. 5. Resolved FDG avid mesenteric lymph nodes. 6. Increased multifocal left upper and lower lobe heterogeneous ground-glass opacities with associated FDG avidity that is likely inflammatory. Previous solid FDG avid peripheral left upper lobe nodule has resolved. Largely resolved right upper lobe ground-glass opacities. 7. Asymmetric FDG uptake at the left palatine tonsillar region without discrete underlying CT abnormality may be physiologic or inflammatory. 8. Additional chronic and incidental findings as above.
[2025-03-03 08:20] LABS: Hematocrit 40.1 % (37-53); Hemoglobin 12.50 g/dL (11.27-16.99); Mean Corpuscular HGB Conc 31.2 g/dL (30-55); Mean Corpuscular Hemoglobin 26.2 pg (27-33); Mean Corpuscular Volume 84.1 fl (82-101); Nucleated Red Blood Cells % 0 %; Platelet Count 386 10^3/cmm (157-399); Red Blood Count 4.77 10^6/uL (3.85-5.65); White Blood Count 7.45 10^3/uL (3.29-11.43)
[2025-03-03 09:07] LABS: Carcinoembryonic Antigen 6.1 ng/mL (0.0-4.7)
[2025-03-03 09:18] LABS: Alanine Aminotransferase 22 U/L (0-41); Albumin Level 3.4 g/dL (3.5-5.2); Alkaline Phosphatase 55 U/L (40-130); Anion Gap 12.7 (5-19); Aspartate Amino Transferase 17 U/L (0-40); Blood Urea Nitrogen 8 mg/dL (6-20); Calcium 8.8 mg/dL (8.5-10.5); Carbon Dioxide 26 mmol/L (22-29); Chloride 105 mmol/L (98-107); Globulin 2.5 g/dL (1.3-4.6); Glucose 111 mg/dL (65-115); Osmolality Calculated 289 mOsm/kg (285-295); Potassium 3.7 mmol/L (3.5-5.1); Sodium 140 mmol/L (136-145); Total Protein 5.9 g/dL (6.6-8.7)
[2025-03-10 08:07] VITALS: BP 127/84; PULSE 62; RESP 17; TEMP 36.1; O2SAT 96
[2025-03-10] MEDS: dexamethasone 4 mg/mL INJ 5 mL 12 MG IVP (08:48)
[2025-03-10] MEDS: diphenhydrAMINE 50 mg/mL SDV 1mL 25 MG IVP (08:52)
[2025-03-10] MEDS: atropine 1 mg/mL SDV 1 mL 0.4 MG IV (10:16)
[2025-03-10] MEDS: leucovorin 740 MG in dextrose 5% 250 ML 166.67 MG IV (10:24)
[2025-03-10] MEDS: fluorouraciL 4,500 MG, elastomeric pump 1 PUMP in sodium chloride 0.9% (100 ml) 2 ML IV (12:14)
[2025-03-10 12:18] VITALS: BP 124/78; PULSE 70; RESP 16; TEMP 36.2; O2SAT 95
== END 2025-03-19 23:59 | disposition home or self-care (01) ==
PROVIDERS: Nurse Practitioner; PCP Family Medicine; Visit Provider Internal Medicine Medical Oncology
DX: Z45.1 Encounter for adjustment and management of infusion pump; Z95.828 Presence of other vascular implants and grafts; Z53.9 Procedure and treatment not carried out, unspecified reason
CPT/HCPCS: 78815; 80053; 82378; 85025; 96368; 96375; 96413; 96415; 96416; 96417; 96523; A4222; A9552; J0461; J0640; J1100; J1200; J2469; J7050; J7060; J9190; J9206; J9303